=== PATIENT | female | born 1990 | race Caucasian/White ===

== ENCOUNTER 2023-07-14 20:53 | Outpatient (REF) | payer BC, SELFPAY | END 2023-07-14 20:54 | disposition home or self-care (01) | LOC: LAB 20:53 | PROVIDERS: Visit Provider Physician Assistant | DX: Z34.93 Encounter for supervision of normal pregnancy, unspecified, third trimester (principal) | CPT/HCPCS: 87081 ==

== ENCOUNTER 2023-08-05 05:10 | Inpatient (IN) | payer BC, SELFPAY ==
[2023-08-05] VITALS (54 sets, daily range): BP systolic 87–147; BP diastolic 52–97; PULSE 61–95; RESP 16; TEMP 35.7–36.1
--- OUTSIDE RECORDS SUMMARY | 2023-08-05 05:14 | XMS_ITS | CCD ---
Author Organization [facility] Care Team Providers Care Manager Outpatient Name Role Phone RISHIARNULFOLONNYAleciaCHIQUITA NGO Unavailable Un available RENETTA ALTMAN Referring Unavailable REQUEST, NONE LISTED Primary Care Unavailable KALLI, ABNER Admitting Unavailable HAY, ABNER Attending Unavailable KALLI, ABNER Consulting Unavailable REQUEST, NONE LISTED Primary Care Unavailable STRUS, MARYANN Admitting Unavailable STRUS, MARYANN Attending Unavailable VIVIANE ROSE V Consulting Unavailable STRUS, MARYANN Consulting Unavailable Cristla Mandel Unavailable OMKAR CONWAY Referring Unavailable ELDON FERNANDEZ Primary Care Unavailable Unavailable Primary Care Provider UnavailKARAN Church Attending Unavailable AYSE, MELINA Attending Unavailable DARIAN, KARAN Attending Unavailable AYSE, MELINA Attending Unavailable DARIAN, KARAN Attending Unavailable DARIAN, KARAN Attending Unavailable ELDON FERNANDEZ Referring Unavailable ELDON FERNANDEZ Primary Care Unavailable ELDON FERNANDEZ Referring Unavailable ELDON FERNANDEZ Primary Care Unavailable EMILY NOVAK Attending Unavailable KLARISSA RODRIGUEZ Referring Unavailable ELDON FERNANDEZ Primary Care Unavailable ELDON FERNANDEZ Referring Unavailable ELDON FERNANDEZ Primary Care Unavailable Allergies Allergy Classification Reported Allergen(s) Allergy Type Date of Onset Reaction(s) Facility (3 sources) Citalopram; Translations: [CITALOPRAM] Drug Allergy 08-17-2016 [facility] Repository (4 sources) Citalopram Drug Allergy 12-18-2017 [facility] Medications Current Medications Medication Drug Class(es) Dates Sig (Normalized) Sig (Original) acetaminophen 500 mg oral tablet (2 sources) take 1 tablet by mouth every six hours as needed acetaminophen (Tylenol) 500 MG tablet Take 500 mg by mouth every 6 (six) hours if needed 0 Active amoxicillin 875 mg / clavulanate 125 mg oral tablet (1 source) Penicillin-class Antibacterial Start: 11-08-2022 take 1 tablet by mouth every twelve hours Amoxicillin-Pot Clavulanate 875-125 MG 1 tablet Orally every 12 hrs for 10 day(s) Oct, Active cetirizine hydrochloride 10 mg oral tablet (3 sources) Histamine-1 Receptor Antagonist take 1 tablet by mouth in the morning cetirizine (ZyrTEC) 10 MG tablet Take 10 mg by mouth in the morning. 0 Active take 1 tablet by mouth once ruth y ZyrTEC Allergy 10 MG 1 tablet Orally Once a day Active cholecalciferol 0.05 mg oral tablet (2 sources) Vitamin D cholecalciferol (Vitamin D-3) 50 MCG (2000 UT) tablet Take by mouth Daily 0 Active docusate sodium 100 mg oral capsule (2 sources) Start: 023 take 1 capsule by mouth twice daily as needed Docusate Sodium (DSS) 100 MG capsule Take 100 mg by mouth 2 (two) times a day as needed 0 12/30/2022 Active lactobacillus acidophilus [id number] unt / pectin 100 mg oral tablet (2 sources) Lactobacillus Acid-Pectin (Acidophilus/[place] Pectin) tablet Take by mouth 3 (three) times a day with meals 0 Active omega-3 acid ethyl esters ([facility]) 1000 mg oral capsule (2 sources) take 1 capsule by mouth in the morning omega-3 acid ethyl esters (Lovaza) 1 g capsule Take 2 g by mouth in the morning and 2 g in the evening. 0 Active Prenat w/o N-AB-Wxwwtvt-FA-DHA (WesCap-PN DHA) 27-0.6-0.4-300 MG capsule (2 sources) take 1 capsule by mouth in the morning Prenat w/o Y-PF-Lrmuivf-FA-DHA (WesCap-PN DHA) 27-0.6-0.4-300 MG capsule Take 1 capsule by mouth in the morning. 0 Active valACYclovir 500 mg oral tablet (2 sources) Herpesvirus Nucleoside Analog DNA Polymerase Inhibitor, Herpes Simplex Virus Nucleoside Analog DNA Polymerase Inhibitor, Herpes Zoster Virus Nucleoside Analog DNA Polymerase Inhibitor Start: 023 take 1 tablet by mouth in the morning valACYclovir (Valtrex) 500 MG tablet Take 500 mg by mouth in the morning. 0 12/30/2022 Active Completed/Discontinued Medications Medication Drug Class(es) Dates Sig (Normalized) Sig (Original) acyclovir 400 mg oral tablet (1 source) Herpesvirus Nucleoside Analog DNA Polymerase Inhibitor, Herpes Simplex Virus Nucleoside Analog DNA Polymerase Inhibitor, Herpes Zoster Virus Nucleoside Analog DNA Polymerase Inhibitor Acyclovir 400 MG Oral for 30 Days Not-Taking buprenorphine 8 mg / naloxone 2 mg sublingual film (1 source) Partial Opioid Agonist, Opioid Antagonist Buprenorphine HCl-Naloxone HCl 8-2 MG DISSOLVE 1 FILM UNDER THE TONGUE ONCE DAILY Sublingual for 12 Days Not-Taking busPIRone hydrochloride 10 mg oral tablet (1 source) take 1 tablet by mouth once daily in the morning, then take 1 tablet by mouth once daily in the evening busPIRone HCl 10 MG take 1 tablet by mouth every morning and then take 1 tablet every evening Oral for 30 Days Not-Taking cloNIDine hydrochloride 0.2 mg oral tablet (1 source) Central alpha-2 Adrenergic Agonist take 1 tablet by mouth three times daily cloNIDine HCl 0.2 MG take 1 tablet by mouth three times a day Oral for 10 Days Not-Taking hydrOXYzine hydrochloride 50 mg oral tablet (1 source) Antihistamine take 1 tablet by mouth twice daily for anxiety hydrOXYzine HCl 50 MG take 1 tablet by mouth twice a day if needed for anxiety Oral for 30 Days Not-Taking naltrexone hydrochloride 50 mg oral tablet (1 source) Opioid Antagonist take 1 tablet by mouth once daily Naltrexone HCl 50 MG take 1 tablet by mouth once daily Oral for 30 Days Not-Taking prazosin 1 mg oral capsule (1 source) alpha-Adrenergic Marquis take 1 capsule by mouth at bedtime Prazosin HCl 1 MG take 1 capsule by mouth at bedtime Oral for 30 Days Not-Taking predniSONE 50 mg oral tablet (1 source) predniSONE 50 MG Oral for 5 Days Not-Taking Problems Active Problems Problem Classification Problem Date Documented Da te Episodic/Chronic Abdominal pain (4 sources) Unspecified abdominal pain; Translations: [UNSPECIFIED ABDOMINAL PAIN] Onset: 10-05-2018 Episodic Disorders of teeth and jaw (3 sources) Other specified disorders of teeth and supporting structures; Translations: [OTH SPEC DISORDERS TEETH SUPP STRCT] Onset: 03-24-2018 E Codes: Natural/environment (1 source) Bitten by cat, initial encounter Episodic Open wounds of extremities (1 source) Open bite of right hand, initial encounter Episodic Other complications of (1 source) Other specified related conditions, second trimester; Translations: [OTH SPEC PREG RELATED COND 2ND TRI] Onset: 10-07-2018 Episodic Other complications of (1 source) Supervision of other high risk pregnancies, third trimester; Translations: [Supervision of other high risk pregnancies, third trimester] Onset: 07-29-2023 Episodic Other complications of (1 source) Smoking (tobacco) complicating , third trimester; Translations: [Smoking (tobacco) complicating , third trimester] Onset: 07-29-2023 Episodic Other and delivery including normal (2 sources) Third trimester ; Translations: [Encounter for supervision of normal , unspecified, third trimester] 06-25-2023 Episodic Polyhydramnios and other problems of amniotic cavity (2 sources) Polyhydramnios, third trimester, not applicable or unspecified; Translations: [Polyhydramnios, third trimester, not applicable or unspecified] Onset: 04-30-2023 Episodic Residual codes; unclassified (1 source) Cystic fibrosis carrier; Translations: [Cystic fibrosis carrier] Onset: 07-29-2023 Episodic Residual codes; unclassified (1 source) 18 weeks gestation of ; Translations: [18 WEEKS GESTATION OF ] Onset: 10-07-2018 Substance-related disorders (1 source) Nicotine dependence, cigarettes, uncomplicated; Translations: [NICOTINE DEPEND CIGARETTES UNCOMP] Onset: 10-07-2018 Chronic Unclassified (1 source) Other psychoactive substance use, unspecified, in remission; Translations: [Other psychoactive substance use, unspecified, in remission] Onset: 03-06-2019 Past or Other Problems Problem Classification Problem Date Documented Da te Episodic/Chronic Disorders of teeth and jaw (4 sources) Periapical abscess without sinus; Translations: [Dental caries, unspecified] Onset: 03-28-2018 Episodic Immunizations and screening for infectious disease (1 source) Contact with and (suspected) exposure to other viral communicable diseases Onset: 05-07-2021 Resolved: 05-07-2021 Episodic Other upper respiratory infections (2 sources) Acute upper respiratory infection, unspecified; Translations: [Acute pharyngitis, unspecified] Onset: 05-07-2021 Resolved: 05-07-2021 Episodic Residual codes; unclassified (1 source) Tobacco use; Translations: [Tobacco use] Onset: 12-17-2022 Episodic Results Test Name Value Interpretation Reference Range Facility Urinalysis macro (dipstick) panel (U)on 06-30-2023 Bilirubin, UA Negative Negative - 4(70) +++ mg/dL [facility] Blood, UA Negative Negative - 50 Cosmo/mcL [facility] Clarity, UA Clear [facility] re Color, UA Yellow [facility] Glucose, UA Negative Negative - 1999(110) ++++ mg/dL [facility] Interpretation and review of laboratory results Normal [facility] Ketones, UA Negative Negative - 160(16) ++++ mg/dL [facility] Leukocytes, UA Negative Negative - 500+++ Erin/mcL [facility] Nitrite, UA Negative Negative - Positive [facility] pH, UA 5.5 5 - 9 [facility] e Protein, UA Negative Negative - 1999(20) ++++ mg/dL [facility] Spec Grav, UA 1.020 1 - 1.03 [facility] Urobilinogen, UA 1.0 0.2 - 12 mg/dL [facility] Glucose 1 Hr post dose gluco se [Mass/Vol]on 05-03-2023 1ST HR GTT 176 mg/dL High 120-170 [facility] Comment on above: Performed By: #### 2 0438-8 #### [facility] ([id number]) [address] [place] [address], [address] [place] [address] Glucose 2 Hr post 100 g gluc ose PO [Mass/Vol]on 05-03-2023 2ND HR GTT 100GM LOAD 137 mg/dL Normal 70-139 [facility] Comment on above: Result Comment: Fourth International Workshop Conference: Recommendations and Rationale for Screening and Diagnosis of Gestational Diabetes Mellitus 2 or more of the following must be met or exceeded for a positive diagnosis. FASTING >=95mg/dL 1hr post 100g load >=180mg/dL 2hr post 100g load >=155mg/dL 3hr post 100g load >=140mg/dL Performed By: #### 1 514-9 #### [facility] ([id number]) [address], [address] [place] [address] Glucose 3 Hr post dose gluco se [Mass/Vol]on 05-03-2023 3RD HR GTT 102 mg/dL High 65-99 [facility] Comment on above: Performed By: #### 2 0437-0 #### [facility] ([id number]) [address], [address] [place] [address] Glucose post fast [Mass/Vol] on 05-03-2023 FASTING GTT 83 mg/dL Normal 65-99 [facility] Comment on above: Performed By: #### 1 558-6 #### [facility] ([id number]) [address], [address] [place] [address] [employer] 05-07-2021 S. pyogenes Org specific cx Ql (Throat) Negative [employer] Other [employer] 10-26-2018 Send Out Report FORWARD TO [employer] Normal [facility] Comment on above: Performed By: #### C MIS #### [facility] [place] [address] [place] [address] [id number] Director Enterprise Data Architecture: Rod Mott MD [facility]-2018 Test Name COUNSYL KIT Normal [facility] Comment on above: Performed By: #### C MIS #### [facility] [place], [place] [id number] Director Enterprise Data Architecture: Rod Mott MD ABO AND RH TYPEon 10-05-2018 ABO and Rh group Nom (Bld) ABO Rh Typing A Rh Positive Normal [facility] Comment on above: Performed By: #### A JORGE #### [facility] [address], [place] [address] Jaswant Reza CBC AUTO DIFFon 10-05-2018 Basophils (Bld) [#/Vol] 0.0 103/ul Normal 0.0-0.1 [facility] Comment on above: Performed By: #### C BC #### [facility] [address], [place] [address] Jaswant Libia Basophils/100 WBC (Bld) 0.3 % Normal 0.2-2.0 [facility] Comment on above: Performed By: #### C BC #### [facility] [address], [place] [address] Jaswant Libia Eosinophils (Bld) [#/Vol] 0.2 103/ul Normal 0.0-0.7 [facility] Comment on above: Performed By: #### C BC #### [facility] [address], [place] [address] Jaswant Ilbia Eosinophils/100 WBC (Bld) 1.8 % Normal 0.9-7.0 [facility] Comment on above: Performed By: #### C BC #### [facility] [address] [place], [place] [address] Jaswant Libia Erythrocyte distribution width (RBC) [Ratio] 12.2 % Normal 11.0-15.0 [facility] Comment on above: Performed By: #### C BC #### [facility] [address] [place], [place] [address] Jaswant Libia Hematocrit (Bld) [Volume fraction] 35.7 % Critically low 36.0-48.0 [facility] Comment on above: Performed By: #### C BC #### [facility] [address] [place], [place] [address] Jaswant Libia Hemoglobin (Bld) [Mass/Vol] 12.2 g/dL Normal 12.0-16.0 [facility] Comment on above: Performed By: #### C BC #### [facility] [address] [place], [place] [address] Jaswant Libia IG # 0.05 10e3/ul Critically high 0.00-0.03 [facility] Comment on above: Performed By: #### C BC #### [facility] [address] [place], [place] [address] Jaswant Libia IG % 0.5 % Normal 0.0-0.5 [facility] Comment on above: Performed By: #### C BC #### [facility] [address], [place] [address] Jaswant Libia Lymphocytes (Bld) [#/Vol] 2.9 103/ul Normal 1.2-3.8 [facility] Comment on above: Performed By: #### C BC #### [facility] [address], [place] [address] Jaswant Libia Lymphocytes/100 WBC (Bld) 27.6 % Normal 20.5-60.0 [facility] Comment on above: Performed By: #### C BC #### [facility] [address], [place] [address] Jaswant Libia MANUAL DIFF REQ NO Normal [facility] Comment on above: Performed By: #### C BC #### [facility] [address] [place] [address] Jaswant Libia MCH (RBC) [Entitic mass] 30.0 pg Normal 26.7-34.0 [facility] Comment on above: Performed By: #### C BC #### [facility] [address] [place] [address] Jaswant Libia MCHC (RBC) [Mass/Vol] 34.2 g/dL Normal 29.9-35.2 [facility] Comment on above: Performed By: #### C BC #### [facility] [address] [place] [address] Jaswant Libia MCV (RBC) [Entitic vol] 87.7 fL Normal 81.0-99.0 [facility] Comment on above: Performed By: #### C BC #### [facility] [address], [place] [address] Jaswant Libia Monocytes (Bld) [#/Vol] 0.9 103/ul Critically high 0.3-0.8 [facility] Comment on above: Performed By: #### C BC #### [facility] [address], [place] [address] Jaswant Libia Monocytes/100 WBC (Bld) 8.2 % Normal 1.7-12.0 [facility] Comment on above: Performed By: #### C BC #### [facility] [address] [place], [place] [address] Jaswant Libia Neutrophils (Bld) [#/Vol] 6.5 103/ul Normal 1.4-6.5 [facility] Comment on above: Performed By: #### C BC #### [facility] [address] [place], [place] [address] Jaswant Libia Neutrophils/100 WBC (Bld) 61.6 % Normal 43.0-75.0 [facility] Comment on above: Performed By: #### C BC #### [facility] [address] [place] [address] Jaswant Libia Platelet mean volume (Bld) [Entitic vol] 10.2 fL Normal 9.5-13.5 [facility] Comment on above: Performed By: #### C BC #### [facility] [address] [place] [address] Jaswant Libia Platelets (Bld) [#/Vol] 315 103/ul Normal 150-450 [facility] Comment on above: Performed By: #### C BC #### [facility] [address] [place] [address] Jaswant Libia RBC (Bld) [#/Vol] 4.07 106/ul Critically low 4.20-5.40 [facility] Comment on above: Performed By: #### C BC #### [facility] [address] [place] [address] Jaswant Libia WBC (Bld) [#/Vol] 10.5 103/ul Normal 4.0-11.0 [facility] Comment on above: Performed By: #### C BC #### [facility] [address] [place] [address] Jaswant Libia ER URINE PROFILEon 9 Bilirubin [Mass/Vol] Negative Normal NEGATIVE [facility] Comment on above: Performed By: #### E RUR #### [facility] [address] [place] [address] Jaswant Libia BLOOD Negative Normal NEGATIVE [facility] Comment on above: Performed By: #### E RUR #### [facility] [address] [place] [address] Jaswant Libia Clarity (U) CLEAR Normal [facility] Comment on above: Performed By: #### E RUR #### [facility] [address] [place] [address] Jaswant Libia Color (U) LT. YELLOW Normal YELLOW [facility] Comment on above: Performed By: #### E RUR #### [facility] [address] [place] [address] Jaswant Libia ERUAHD A micrscopic examination will be performed if indicated. Normal [facility] Comment on above: Performed By: #### E RUR #### [facility] [address] [place] [address] Jaswant Libia Glucose [Mass/Vol] Negative Normal NEGATIVE [facility] Comment on above: Performed By: #### E RUR #### [facility] [address] [place] [address] Jaswant Libia Ketones Ql (U) Negative Normal NEGATIVE [facility] Comment on above: Performed By: #### E RUR #### [facility] [address] [place] [address] Jaswant Libia Nitrite Ql (U) Negative Normal NEGATIVE [facility] Comment on above: Performed By: #### E RUR #### [facility] [address] [place] [address] Jaswant Libia pH (Bld) 5.5 Normal 5-9 [facility] Comment on above: Performed By: #### E RUR #### [facility] [address] [place] [address] Jaswant Libia Protein (U) [Mass/Vol] Negative Normal [facility] Comment on above: Performed By: #### E RUR #### [facility] [address] [place] [address] Jaswant Libia SPEC GRAVITY 1.010 Normal 1.005-<=1.025 [facility] Comment on above: Performed By: #### E RUR #### [facility] [address] [place] [address] Jaswant Reza UR MICRO IND NOT INDICATED Normal [facility] Comment on above: Performed By: #### E RUR #### [facility] [address] [place], [place] [address] Jaswant Reza Urobilinogen Qn (U) 0.2 EU/dl Normal [facility] Comment on above: Performed By: #### E RUR #### [facility] [address] [place], [place] [address] Jaswant Reza WBC (Bld) [#/Vol] Negative Normal NEGATIVE [facility] Comment on above: Performed By: #### E RUR #### [facility] [address] [place], [place] [address] Jaswant Reza PREG QUANT HCGon 10-05-2018 HCG QUANT 66993.00 mIU/mL Normal [facility] Comment on above: Result Comment: VERI FIED BY DILUTION Performed By: #### P REGQNT #### [facility] [address] [place] [address] Jaswant Reza HCG RANGE SEE BELOW Normal [facility] Comment on above: Result Comment: 5-50 0-1 WEEK 40-300 1-2 WEEKS 100-1,000 2-3 WEEKS 500-6,000 3-4 WEEKS 5,000-200,000 1-2 MONTHS 10,000-100,000 2-3 MONTHS 3,000-50,000 2ND TRIMESTER 1,000-50,000 3RD TRIMESTER Performed By: #### P REGQNT #### [facility] [address] [place] [address] Jaswant Reza PROF CHEM 8 (BAS METB)on Anion gap [Moles/Vol] 13.8 mmol/L Normal [facility] Comment on above: Performed By: #### B MP #### [facility] [address] [place], [place] [address] Jaswant Reza Calcium [Mass/Vol] 9.5 mg/dL Normal 8.4-10.2 [facility] Comment on above: Performed By: #### B MP #### [facility] [address] [place] [phone] Jaswant Libia Chloride [Moles/Vol] 102 mmol/L Normal 98-107 [facility] Comment on above: Performed By: #### B MP #### [facility] [address] [place] [phone] Jaswant Libia CO2 [Moles/Vol] 23.9 mmol/L Normal 22.0-30.[address] [facility] Comment on above: Performed By: #### B MP #### [facility] [address] [place] [phone] Jaswant Libia Creatinine [Mass/Vol] 0.45 mg/dL Critically low 0.52-1.04 [facility] Comment on above: Performed By: #### B MP #### [facility] [address] [place] [phone] Jaswant Libia EGFR-AF [place]ER >60 Normal >=[address] [facility] Comment on above: Performed By: #### B MP #### [facility] [address] [place] [address] Jaswant Libia EGFR-NON AF [place] >60 Normal >=60 [facility] Comment on above: Performed By: #### B MP #### [facility] [address] [place] [phone] Jaswant Libia Glucose [Mass/Vol] 78 mg/dL Normal 74-106 [facility] Comment on above: Performed By: #### B MP #### [facility] [address] [place] [phone] Jaswant Libia Potassium [Moles/Vol] 3.7 mmol/L Normal 3.4-5.0 [facility] Comment on above: Performed By: #### B MP #### [facility] [address] [place] [phone] Jaswant Libia Sodium [Moles/Vol] 136 mmol/L Critically low 137-145 [facility] Comment on above: Performed By: #### B MP #### [facility] [address] [place] [phone] Jaswant Libia Urea nitrogen [Mass/Vol] 5.0 mg/dL Critically low 7.0-17.0 [facility] Comment on above: Performed By: #### B MP #### [facility] [address] [place], [place] [address] Jaswant Reza Urea nitrogen/Creatinine [Mass ratio] 11.1 mg/mg Normal [facility] Comment on above: Performed By: #### B MP #### [facility] [address] [place], [place] [address] Jaswant Reza US PREG PLACENTAon 9 US PREG PLACENTA Patient: ANITA OCHOA Exam Date: 10/05/2018 : 1990 Gender:F Ordering : DR. MARYANN DALY M.D. Admission #: [id number] Family : Order #: [id number] CLICK HERE TO VIEW EXAM RADIOLOGY REPORT PROCEDURE: ULTRASOUND PLACENTA COMPARISON: None. INDICATIONS: Acute right and left lower quadrant pain with ; 18w5d TECHNIQUE: Transabdominal sonographic examination for placenta. Transvaginal sonographic examination for placenta. FINDINGS: PLACENTA: Posterofundal. No intraplacental or retroplacental echogenic abnormality. The placental edge is 7.5 cm from the internal cervical os. CERVIX LENGTH: 4.3 cm in length. Closed. HEART RATE: 136 bpm CONCLUSION: 1. No evidence of placental abruption Dictated by: Viviane Rose M.D. on 10/05/2018 at 21:24 Approved by: Viviane Rose M.D. on 10/05/2018 at 21:25 Normal [facility] Vital Signs Date Time Vital Sign Value Performing Clinician Facility 06-30-2023 10:050 Body mass index (BMI) [Ratio] 39.27 kg/m2 HBCSo DO Work Phone: [facility] 06-30-2023 10:050 Body weight 103.78 kg Patsnap DO Work Phone: [facility] 06-30-2023 10:23-050 Diastolic blood pressure 76 mm[Hg] Patsnap DO Work Phone: [facility] 06-30-2023 10:23-0500 Systolic blood pressure 116 mm[Hg] Karan Farmer DO Work Phone: [facility] 11-08-2022 12:15-0400 Body height 167.64 cm Cristal Tequila Other [facility] [facility] Other 11-08-2022 12:15-0400 Body mass index (BMI) [Ratio] 30.02 kg/m2 Cristal Tequila Other [facility] Other 11-08-2022 12:15-0400 Body temperature 98.3 [degF] Cristal Tequila Other [facility] Other 11-08-2022 12:15-0400 Body weight 84.37 kg Cristal Tequila Other [facility] Other 11-08-2022 12:15-0400 Respiratory rate 18 /min Cristal Tequila Other [facility] Other 11-08-2022 12:15-0400 SaO2% (BldA) [Mass fraction] 99 % Cristal Tequila Other [facility] Other 05-07-2021 13:30-0500 Body height 167.64 cm Cristal Tequila Other [facility] Other 05-07-2021 13:30-0500 Body mass index (BMI) [Ratio] 29.05 kg/m2 Cristal Tequila Other [facility] Other 05-07-2021 13:30-0500 Body temperature 97.9 [degF] Cristal Tequila Other [facility] Other 05-07-2021 13:30-0500 Body weight 81.65 kg Cristal Tequila Other [facility] Other 05-07-2021 13:30-0500 Respiratory rate 18 /min Cristal Mandel Other [facility] [facility] Other 05-07-2021 13:30-0500 SaO2% (BldA) [Mass fraction] 99 % Cristal Mandel Other [facility] Other Encounters Encounter Date Encounter Type Care Provider Facility Start: 07-29-2023 End: 07-29-2023 ambulatory [facility] Start: 07-28-2023 End: 07-28-2023 ambulatory KARAN DARIAN Not Available Start: 07-21-2023 End: 07-21-2023 ambulatory KARAN DARIAN Not Available Start: 07-14-2023 End: 07-14-2023 ambulatory MELINA AYSE Not Available Start: 06-30-2023 End: 06-30-2023 ambulatory KARAN DARIAN Not Available Start: 06-30-2023 End: 06-30-2023 flow sheet Karan Darian DO Work Phone: [facility] Comment on above: Third trimester preg prince Start: 06-24-2023 End: 06-24-2023 ambulatory [facility] Start: 06-14-2023 End: 06-14-2023 ambulatory MELINA TAVERA Not Available Start: 05-31-2023 End: 05-31-2023 ambulatory KARAN DARIAN Not Available Start: 05-27-2023 End: 05-27-2023 ambulatory EMILY SCARLET [facility] Start: 05-03-2023 End: 05-04-2023 ambulatory OMKAR CONWAY [facility] Start: 11-08-2022 End: 11-08-2022 ambulatory Cristal Mandel Other [facility] Other Start: 11-08-2022 Office outpatient vi sit 15 minutes Cristal Mandel [facility] Start: 05-07-2021 (URG) Urgent Care Visit Cristal Patrica bermudez [facility] Start: 05-07-2021 End: 05-07-2021 ambulatory Cristal Grovermond Other [facility] Other Start: 10-25-2018 End: 10-26-2018 Patient encounter procedure RENETTA ALTMAN [facility] Start: 10-05-2018 End: 10-06-2018 Patient encounter procedure NONE LISTED REQUEST Facility: Start: 04-20-2018 End: 04-20-2018 Emergency department patient visit CHIQUITA Johnson [facility] Start: 03-24-2018 End: 03-24-2018 Patient encounter procedure NONE LISTED REQUEST Facility: Procedures Date Procedure Procedure Detail Performing Clinician Start: 06-30-2023 Urnls dip stick/tabl et rgnt non-auto w/o micrscp Karan Darian DO Work Phone: Start: 10-25-2018 Unlisted chemistry procedure RENETTA ALTMAN Plan of Treatment Date Care Activity Detail Author Start: 07-14-2023 End: 07-14-2023 Patient encounter procedure 07/14/2023 8:50 AM EST Routine [facility] [address] [place] [id number] Melina Tavera PA [address] [place] [address] [facility] Immunizations Immunization Date Immunization Notes Care Provider Fa cility 11-08-2022 tetanus toxoid, reduced diphtheria toxoid, and acellular pertussis vaccine, adsorbed Cristal Mandel Other [facility] [facility] Other Payers Date Payer Category Payer Medicaid [id number] 2022 Medicaid [place] [id number] 2022-Present [address] [place] [address] [id number] 2021 Unknown [id number] 2021 Unknown BCBS BCBS xxxxxx [id number] 2021-Present [phone] [address] [place] [address] [id number] 1992 Unknown [id number] [id number] 1992 Unknown [id number] 2.16.840.1.236192.3.579.2.593 1992 Unknown [id number] 2.16.840.1.752984.3.579.2.593 1992 Unknown [id number] 2.16.840.1.035193.3.579.2.1286 1992 Unknown [id number] 2.16.840.1.060142.3.579.2.1259 1992 Unknown [id number] 2.16.840.1.509921.3.579.2.1259 1992 Unknown [id number] 2.16.840.1.611966.3.579.2.1259 1992 Unknown [id number] 2.16.840.1.944511.3.579.2.1259 1992 Unknown [id number] 2.16.840.1.415083.3.579.2.1259 1992 Unknown [id number] 2.16.840.1.693217.3.579.2.1259 1992 Unknown [id number] 2.16.840.1.132251.3.579.2.1286 1992 Unknown [id number] 2.16.840.1.041401.3.579.2.1286 1992 Unknown [id number] 2.16.840.1.998460.3.579.2.1286 1992 Unknown [id number] 2.16.840.1.995967.3.579.2.1286 1959 Self-pay [id number] 1959 Unknown [id number] Unknown [id number] Social History Date Type Detail Facility Unknown if ever smoked [facility] Other Sex Assigned [facility] Other Tobacco smoking status NHIS Tobacco smoking consumption unknown [facility] Start: 11-19-2022 [facility] Start: 1992 Sex Assigned At Not on file [facility] History of Present illness Narrative 06-30-2023 Libia Isaac LPN - 06/30/2023 10:10 AM EST Note Date & Type Note Facility 06-30-2023 History of Presen t illness Narrative Reason for Appointment: Patient ID: Anita Ochoa is a 32 y.o. female who presents for Routine Visit Patient presents today for Return OB appointment. Current Medications: has a current medication list which includes the following prescription(s): acetaminophen, cetirizine, cholecalciferol, dss, acidophilus/citrus pectin, omega-3 acid ethyl esters, wescap-pn dha, and valacyclovir. Medical History: Active Ambulatory Problems Diagnosis Date Noted No Active Ambulatory Problems Resolved Ambulatory Problems Diagnosis Date Noted No Resolved Ambulatory Problems Past Medical History: Diagnosis Date Broken nose 2008 Family History Problem Relation Name Age of Onset Asthma Brother Ovarian cancer Maternal Grandmother Breast cancer Paternal Grandmother Social History Tobacco Use Smoking status: Not on file Smokeless tobacco: Not on file Substance Use Topics Alcohol use: Not on file Drug use: Not on file Past Surgical History: Procedure Laterality Date NASAL SINUS SURGERY TONSILLECTOMY 2013 Allergies Allergen Reactions Citalopram Hives and Rash Whole body hives Review of Systems: Review of Systems Constitutional: Negative. HENT: Negative. Eyes: Negative. Respiratory: Negative. Cardiovascular: Negative. Gastrointestinal: Negative. Genitourinary: Negative. Musculoskeletal: Negative. Skin: Negative. Neurological: Negative. All other systems reviewed and are negative. Hematological: Negative. Endocrine: Negative. Allergic/Immunologic: Negative. Objective Physical Exam Constitutional: Appearance: Normal appearance. She is well-developed. Cardiovascular: Rate and Rhythm: Normal rate and regular rhythm. Pulmonary: Effort: Pulmonary effort is normal. Breath sounds: Normal breath sounds. Abdominal: General: Bowel sounds are normal. There is no distension. Palpations: Abdomen is soft. Tenderness: There is no abdominal tenderness. There is no guarding or rebound. Musculoskeletal: General: No swelling. Normal range of motion. Right lower leg: No edema. Left lower leg: No edema. Neurological: Mental Status: She is alert and oriented to person, place, and time. Skin: General: Skin is warm and dry. Psychiatric: Mood and Affect: Mood normal. Behavior: Behavior normal. Vitals and nursing note reviewed. Exam conducted with a batching operator present. Vitals: Estimated body mass index is 39.27 kg/m as calculated from the following: Height as of 05/31/23: 5' 4 . Weight as of this encounter: 228 lb 12.8 oz. BP: 116/76 No LMP recorded. Patient is . Assessment/Plan Encounter Diagnosis Name Primary? Third trimester Patient presents today for a routine obstetrics appointment. Patient is currently 33w6d . Patient states she is doing well but has complaints of being tired due to current . Patient has verbalizes frequent movement. labor precautions was discussed/given and patient was instructed to perform kick counts three times a day. Follow Up: Patient is to return to office in 2 week for routine OB appointment. Documented by Libia Isaac LPN on behalf of: Karan Farmer DO documented in this encounter [facility] Evaluation note 11-08-2022 Note Date & Type Note Facility 11-08-2022 Evaluation note Encounter Date Diagnosis Assessment Notes Oct, Bitten by cat, initial encounter (ICD-10 - W55.01XA) Cat bite home care material was printed Drink plenty fluids, get plenty of rest. Take the antibiotic as prescribed until gone. Keep the wounds clean and dry. Follow-up with your family physician if no improvement in 2 to 3 days. Go to the ER for worsening symptoms or concerns Oct, Open bite of right hand, initial encounter (ICD-10 - S61.451A) [facility] Other Evaluation note Note Date & Type Note Facility Evaluation note [employer] Other Evaluation note Note Date & Type Note Facility Evaluation note Diagnosis Third trimester state, incidental documented in this encounter [facility] History general Narrative - Reported Note Date & Type Note Facility History general Narrative - Reported [facility] Other History general Narrative - Reported Note Date & Type Note Facility History general Narrative - Reported Type Surgical History tonsillectomy [facility] Other Summary Purpose Family History No Family History Records FoundNo Family History Records FoundNo Family History Records FoundNo Family History Records FoundNo Family History Records FoundNo Family History Records Found Advance Directives No Advanced Directives Records FoundNo Advanced Directives Records FoundNo Advanced Directives Records FoundNo Advanced Directives Records FoundNo Advanced Directives Records FoundNo Advanced Directives Records Found Additional Source Comments INFORMATION SOURCE (unrecogn ized section and content) DATE CREATED AUTHOR 04/26/2018 [facility] DATE CREATED AUTHOR AUTHOR'S ORGANIZ ATION 10/26/2018 [facility] DATE CREATED AUTHOR AUTHOR'S ORGANIZ ATION 12/25/[address] [facility] DATE CREATED AUTHOR AUTHOR'S ORGANIZ ATION 05/07/2023 [facility] DATE CREATED AUTHOR AUTHOR'S ORGANIZ ATION 07/29/2023 [facility] DATE CREATED AUTHOR AUTHOR'S ORGANIZ ATION 07/30/2023 [facility] REASON FOR VISIT (unrecogniz ed section and content) Reason Comments Routine Visit FOR RECORDS PERTAINING TO PATIENTS WHO ARE OR HAVE BEEN ENROLLED IN A CHEMICAL DEPENDENCY/SUBSTANCEABUSE PROGRAM, SOME INFORMATION MAY BE OMITTED. This clinical summary was aggregated from multiple sources. Caution should be exercised in using it in the provision of clinical care. This summary normalizes information from multiple sources, and as a consequence, information in this document may materially change the coding, format and clinical context of patient data. In addition, data may be omitted in some cases. CLINICAL DECISIONS SHOULD BE BASED ON THE PRIMARY CLINICAL RECORDS. [facility] [employer] [facility]. provides no warranty or guarantee of the accuracy or completeness of information in this document.
[2023-08-05] MEDS: 0.9 % SODIUM CHLORIDE 1,000 ML 125 ML IV (05:52)
[2023-08-05 06:13] LABS: Hematocrit 34.7 % (36.0-48.0); Hemoglobin 11.4 g/dL (12.0-16.0); Mean Corpuscular HGB Conc 32.9 g/dL (29.9-35.2); Mean Corpuscular Hemoglobin 28.4 pg (26.7-34.0); Mean Corpuscular Volume 86.3 fL (81.0-99.0); Mean Platelet Volume 10.1 fL (9.5-13.5); Platelet Count 339 10^3/uL (150-450); Red Blood Count 4.02 10^6/uL (4.20-5.40); Red Cell Distribution Width 14.3 % (11.0-15.0); White Blood Count 13.5 10^3/uL (4.0-11.0)
[2023-08-05] MEDS: OXYTOCIN/0.9 % SODIUM CHLORIDE 10 UNITS/500 ML PLAST..BAG 6 UNIT IV (06:18)
[2023-08-05 06:26] LABS: Amphetamine Screen Urine NEGATIVE (NEGATIVE); Barbiturates Screen Urine NEGATIVE (NEGATIVE); Benzodiazepines Screen Urine NEGATIVE (NEGATIVE); Buprenorphine Screen Urine NEGATIVE (NEGATIVE); Cannabinoid Screen Urine NEGATIVE (NEGATIVE); Cocaine Screen Urine NEGATIVE (NEGATIVE); Methadone Screen Urine NEGATIVE (NEGATIVE); Methamphetamines Screen Urine NEGATIVE (NEGATIVE); Opiate Screen Urine NEGATIVE (NEGATIVE); Oxycodone Screen Urine NEGATIVE (NEGATIVE); Phencyclidine Screen Urine NEGATIVE (NEGATIVE); Tricyclic Antidepressant Urine NEGATIVE (NEGATIVE)
[2023-08-05] MEDS: 0.9 % SODIUM CHLORIDE 1,000 ML 1000 ML IV (10:47)
[2023-08-05] MEDS: FENTANYL CITRATE/PF 100 MCG/2 ML VIAL EPIDURAL ×2 (11:23→11:25)
[2023-08-05] MEDS: ROPIVACAINE HCL/PF 400 MG/200 ML PREMIX 6 MG EPIDURAL (11:23)
[2023-08-05] MEDS: LIDOCAINE HCL 2% PF 100 MG/5 ML VIAL INJ (11:23)
[2023-08-05] MEDS: OXYTOCIN/0.9 % SODIUM CHLORIDE 20 UNITS/1,000 ML PLAST..BAG 125 UNIT IV (14:28)
--- NOTE | 2023-08-05 14:41 | PM.OBPRCVD ---
Procedure Intrapartal events: None Induction method: per pitocin protocol Delivery augmentation: rupture of membranes and pitocin Delivery monitor: external FHT and external uterine Route of delivery: Episiotomy Description: none L&D Laceration Description: periurethral - 2nd degree Delivery repair: Vicryl Estimated blood loss (mL): 300 Anesthesia type: Epidural Disposition: floor Infant Delivery date: 08/05/23 Gender: female presentation: vertex Placental delivery description: Spontaneous cord description: 3 Vessels
[2023-08-05] MEDS: GLYCERIN/WITCH HAZEL PADS 1 PAD TOPICAL (16:12)
[2023-08-05] MEDS: BENZOCAINE/MENTHOL 85 GRAM SPRAY BOTTLE 1 APPLIC TOPICAL (16:13)
--- NOTE | 2023-08-05 18:13 | PC.NURSE ---
Addendum entered by Nany Barrett 08/05/23 18:17: Epidural removed at this time. Tip intact. Original Note: While pt is up to toilet, one small egg sized clot obtained in toilet. Pt educated to call RN to observe next pad changed. RN educates pt to call RN if any saturation of pads in 1hour or any more egg sized clots. After returning to bed, pt fundus U/A midline firm. Pt bleeding scant.
--- NOTE | 2023-08-05 19:31 | PC.NURSE ---
No clots at this time.
[2023-08-05] MEDS: IBUPROFEN 600 MG TABLET PO (22:46)
[2023-08-06 06:11] LABS: Basophils Absolute Auto 0.1 10^3/uL (0.0-0.1); Basophils Percent Auto 0.4 % (0.2-2.0); Eosinophils Absolute Auto 0.3 10^3/uL (0.0-0.7); Eosinophils Percent Auto 1.7 % (0.9-7.0); Hematocrit 33.1 % (36.0-48.0); Hemoglobin 10.8 g/dL (12.0-16.0); Immature Granulocytes Abs Auto 0.12 10^3/uL (0.00-0.03); Immature Granulocytes Pct Auto 0.7 % (0.0-0.5); Lymphocytes Absolute Auto 4.1 10^3/uL (1.2-3.8); Lymphocytes Percent Auto 25.4 % (20.5-60.0); Mean Corpuscular HGB Conc 32.6 g/dL (29.9-35.2); Mean Corpuscular Hemoglobin 28.4 pg (26.7-34.0); Mean Corpuscular Volume 87.1 fL (81.0-99.0); Mean Platelet Volume 9.9 fL (9.5-13.5); Monocytes Absolute Auto 1.1 10^3/uL (0.3-0.8); Monocytes Percent Auto 6.9 % (1.7-12.0); Neutrophils Absolute Auto 10.5 10^3/uL (1.4-6.5); Neutrophils Percent Auto 64.9 % (43.0-75.0); Platelet Count 328 10^3/uL (150-450); Red Cell Distribution Width 14.4 % (11.0-15.0); White Blood Count 16.2 10^3/uL (4.0-11.0)
[2023-08-06 06:49] VITALS: RESP 16
--- NOTE | 2023-08-06 07:07 | PM.OBPN ---
OB - PN: Subj Subjective Patient comments: no complaints and pain well controlled [place] status: doing well Exam Constitutional Vital Signs, click to edit/add: Last Vital Signs Temp 96.8 F L 08/05/23 22:22 Pulse 72 08/05/23 22:22 Resp 16 08/06/23 06:49 BP 112/58 08/05/23 22:22 O2 Del Method Room Air 08/05/23 22:22 Documenting provider has reviewed patient's vital signs: yes Common normals: no apparent distress Respiratory Common normals: normal respiratory effort and clear to auscultation bilaterally Cardio Common normals: regular rate and regular rhythm GI Common normals: Normal to inspection, nondistended, normoactive bowel sounds present Extremity Common normals: no calf tenderness Results Labs Labs: Short CBC 08/06/23 Range/Units 06:01 WBC 16.2 H (4.0-11.0) 10^3/uL Hgb 10.8 L (12.0-16.0) g/dL Hct 33.1 L (36.0-48.0) % Plt Count 328 (150-450) 10^3/uL OB - PN: A/P Plan - Vaginal Delivery day: 1 Plan: routine care, discharge home and follow up 6 weeks Time Spent with Patient Time: Total time spent is greater than 50% in coordination of care (as documented) at patient's floor/unit and/or counseling patient: Total time spent with greater than 50% in coordination of care (as documented) at patient's floor/unit and/or counseling patient: less than 15 minutes
[2023-08-06 08:35] VITALS: BP 112/63; PULSE 63; TEMP 36.6
[2023-08-06] MEDS: IBUPROFEN 600 MG TABLET PO ×2 (08:45→16:12)
[2023-08-06] MEDS: DOCUSATE SODIUM 100 MG CAPSULE PO (08:45)
== END 2023-08-06 18:45 | disposition home or self-care (01) | DRG 807 ==
PROVIDERS: Admitting Provider Obstetrics & Gynecology; Visit Provider Obstetrics & Gynecology
DX: O71.82 Other specified trauma to perineum and vulva (principal); Z37.0 Single live birth; Z3A.39 39 weeks gestation of pregnancy; Z14.1 Cystic fibrosis carrier
CPT/HCPCS: 36415; 59050; 59410; 80307; 85025; 85027; 86850; 86900; 86901; 96374; 96376

== ENCOUNTER 2024-01-13 19:06 | Outpatient (REF) | payer BC, SELFPAY ==
--- OUTSIDE RECORDS SUMMARY | 2024-01-13 19:10 | XMS_ITS | CCD ---
Author Organization [place] [employer] [facility] Care Team Providers Care Form Building Supervisor Name Role Phone CHIQUITA ARTIS Unavailable Un available RENETTA ALTMAN Referring Unavailable REQUEST, NONE LISTED Primary Care Unavailable KALLI, ABNER Admitting Unavailable HAY, ABNER Attending Unavailable KALLI, ABNER Consulting Unavailable REQUEST, NONE LISTED Primary Care Unavailable STRUS, MARYANN Admitting Unavailable STRUS, MARYANN Attending Unavailable VIVIANE ROSE V Consulting Unavailable STRUS, MARYANN Consulting Unavailable Cristal Mandel Unavailable OMKAR CONWAY Referring Unavailable JIM, ELDON Germain Primary Care Unavailable Unavailable Primary Care Provider UnavailELDON Lal Referring Unavailable JIM, ELDON Germain Primary Care Unavailable JIM, ELDON Germain Referring Unavailable JIM, ELDON Germain Primary Care Unavailable EMILY NOVAK Attending Unavailable KLARISSA RODRIGUEZ Referring Unavailable JIM, ELDON Germain Primary Care Unavailable JIM, ELDON Germain Referring Unavailable JIM, ELDON Germain Primary Care Unavailable DARIAN, KARAN Attending Unavailable AYSE, MELINA Attending Unavailable DARIAN, KARAN Attending Unavailable AYSE, MELINA Attending Unavailable DARIAN, KARAN Attending Unavailable DARIAN, KARAN Attending Unavailable AYSE, MELINA Attending Unavailable DARIAN, KARAN Attending Unavailable Allergies Allergy Classification Reported Allergen(s) Allergy Type Date of Onset Reaction(s) Facility (3 sources) Citalopram; Translations: [CITALOPRAM] Drug Allergy 08-17-2016 [facility] Repository (4 sources) Citalopram Drug Allergy 12-18-2017 hives, Rash [facility] Medications Current Medications Medication Drug [...] 100 mg oral capsule (2 sources) Start: take 1 capsule by mouth twice daily as needed Docusate Sodium (DSS) 100 MG capsule Take 100 mg by mouth 2 (two) times a day as needed 0 12/30/2022 Active lactobacillus acidophilus [id number] unt / pectin 100 mg oral tablet (2 sources) Lactobacillus Acid-Pectin (Acidophilus/Loup Pectin) tablet Take by mouth 3 (three) times a day with meals 0 Active omega-3 acid ethyl esters (custodial) 1000 mg oral capsule (2 sources) take 1 capsule by mouth in the morning omega-3 acid ethyl esters (Lovaza) 1 g capsule Take 2 g by mouth in the morning and 2 g in the evening. 0 Active Prenat w/o M-IF-Uiewyly-FA-DHA (WesCap-PN DHA) 27-0.6-0.4-300 MG capsule (2 sources) take 1 capsule by mouth in the morning Prenat w/o C-WR-Xvbwnyj-FA-DHA (WesCap-PN DHA) 27-0.6-0.4-300 MG capsule Take 1 [...] UA Negative Negative - 4(70) +++ mg/dL [facility] Blood, UA Negative Negative - 50 Cosmo/mcL [facility] Clarity, UA Clear [facility] re Color, UA Yellow [facility] Health[facility] e Glucose, UA Negative Negative - 1999(110) ++++ mg/dL [facility] Interpretation and review of laboratory results Normal [facility] Ketones, UA Negative Negative - 160(16) ++++ mg/dL [facility] Leukocytes, UA Negative Negative - 500+++ Erin/mcL [facility] Nitrite, UA Negative Negative - Positive [facility] pH, UA 5.5 5 - 9 [facility] e Protein, UA Negative Negative - 1999(20) ++++ mg/dL [facility] Spec Grav, UA 1.020 1 - 1.03 [facility] Urobilinogen, UA 1.0 0.2 - 12 mg/dL [facility] Health[facility] Glucose 1 Hr post dose gluco se [Mass/Vol]on 05-03-2023 1ST HR GTT 176 mg/dL High 120-170 [facility] Comment on above: Performed By: #### 2 0438-8 #### [facility] ([id number]) [address] [place] [address], [address] [place] [address] Glucose 2 Hr post 100 g gluc ose PO [Mass/Vol]on 05-03-2023 2ND HR GTT 100GM LOAD 137 mg/dL Normal 70-139 [facility] Comment on above: Result Comment: Fourth International Workshop Conference: Recommendations and Rationale for Screening and Diagnosis of Gestational Diabetes Mellitus 2 or more of the following must be met or exceeded for a positive diagnosis. FASTING >=95mg/dL 1hr post 100g load >=180mg/dL 2hr post 100g load >=155mg/dL 3hr post 100g load >=140mg/dL Performed By: #### 1 514-9 #### [facility] ([id number]) [address], [address] [place] [address] Glucose 3 Hr post dose gluco se [Mass/Vol]on 05-03-2023 3RD HR GTT 102 mg/dL High 65-99 [facility] Comment on above: Performed By: #### 2 0437-0 #### [facility] ([id number]) [address] [place] [address] Glucose post fast [Mass/Vol] on 05-03-2023 FASTING GTT 83 mg/dL Normal 65-99 [facility] Comment on above: Performed By: #### 1 558-6 #### [facility] ([id number]) [address] [place] [address] Quick Strepon 05-07-2021 S. pyogenes Org specific cx Ql (Throat) Negative [employer] Other [email or web address] 10-26-2018 Send Out Report [facility] Normal [facility] Comment on above: Performed By: #### C MIS #### [facility] [place], [place] [id number] Leather Softener: Rod Mott MD [facility]2018 Test Name COUNSYL KIT Normal [facility] Comment on above: Performed By: #### C MIS #### [facility] [place], [place] [id number] Leather Softener: Rod Mott MD ABO AND RH TYPEon 10-05-2018 ABO and Rh group Nom (Bld) ABO Rh Typing A Rh Positive Normal [facility] Comment on above: Performed By: #### A JORGE #### [facility] [address] [place], [place] [address] Jaswant Reza CBC AUTO DIFFon 10-05-2018 Basophils (Bld) [#/Vol] 0.0 103/ul Normal 0.0-0.1 [facility] Comment on above: Performed By: #### C BC #### [facility] [address] [place], [place] [address] Jaswant Libia Basophils/100 WBC (Bld) 0.3 % Normal 0.2-2.0 [facility] Comment on above: Performed By: #### C BC #### [facility] [address] [place], [place] [address] Jaswant Libia Eosinophils (Bld) [#/Vol] 0.2 103/ul Normal 0.0-0.7 [facility] Comment on above: Performed By: #### C BC #### [facility] [address] [place], [place] [address] Jaswant Libia Eosinophils/100 WBC (Bld) 1.8 % Normal 0.9-7.0 [facility] Comment on above: Performed By: #### C BC #### [facility] [address] [place] [address] Jaswant Libia Erythrocyte distribution width (RBC) [Ratio] 12.2 % Normal 11.0-15.0 [facility] Comment on above: Performed By: #### C BC #### [facility] [address] [place], [place] [address] Jaswant Libia Hematocrit (Bld) [Volume fraction] 35.7 % Critically low 36.0-48.0 [facility] Comment on above: Performed By: #### C BC #### [facility] [address] [place], [place] [address] Jaswant Libia Hemoglobin (Bld) [Mass/Vol] 12.2 g/dL Normal 12.0-16.0 [facility] Comment on above: Performed By: #### C BC #### [facility] [address] [place], [place] [address] Jaswant Libia IG # 0.05 10e3/ul Critically high 0.00-0.03 [facility] Comment on above: Performed By: #### C BC #### [facility] [address] [place], [place] [address] Jaswant Libia IG % 0.5 % Normal 0.0-0.5 [facility] Comment on above: Performed By: #### C BC #### [facility] [address] [place] [id number] Jaswant Libia Lymphocytes (Bld) [#/Vol] 2.9 103/ul Normal 1.2-3.8 [facility] Comment on above: Performed By: #### C BC #### [facility] [address] [place] [id number] Jaswant Libia Lymphocytes/100 WBC (Bld) 27.6 % Normal 20.5-60.0 [facility] Comment on above: Performed By: #### C BC #### [facility] [address] [place], [place] [address] Jaswant Libia MANUAL DIFF REQ NO Normal [facility] Comment on above: Performed By: #### C BC #### [facility] [address] [place], [place] [address] Jaswant Libia MCH (RBC) [Entitic mass] 30.0 pg Normal 26.7-34.0 [facility] Comment on above: Performed By: #### C BC #### [facility] [address] [place], [place] [address] Jaswant Libia MCHC (RBC) [Mass/Vol] 34.2 g/dL Normal 29.9-35.2 [facility] Comment on above: Performed By: #### C BC #### [facility] [address] [place], [place] [address] Jaswant Libia MCV (RBC) [Entitic vol] 87.7 fL Normal 81.0-99.0 [facility] Comment on above: Performed By: #### C BC #### [facility] [address] [place] [id number] Jaswant Libia Monocytes (Bld) [#/Vol] 0.9 103/ul Critically high 0.3-0.8 [facility] Comment on above: Performed By: #### C BC #### [facility] [address] [place] [id number] Jaswant Libia Monocytes/100 WBC (Bld) 8.2 % Normal 1.7-12.0 [facility] Comment on above: Performed By: #### C BC #### [facility] [address] [place], [place] [address] Jaswant Libia Neutrophils (Bld) [#/Vol] 6.5 103/ul Normal 1.4-6.5 [facility] Comment on above: Performed By: #### C BC #### [facility] [address] [place] [address] Jaswant Libia Neutrophils/100 WBC (Bld) 61.6 % Normal 43.0-75.0 [facility] Comment on above: Performed By: #### C BC #### [facility] [address] [place] [address] Jaswant Libia Platelet mean volume (Bld) [Entitic vol] 10.2 fL Normal 9.5-13.5 [facility] Comment on above: Performed By: #### C BC #### [facility] [address] [place], [place] [address] Jaswant Libia Platelets (Bld) [#/Vol] 315 103/ul Normal 150-450 [facility] Comment on above: Performed By: #### C BC #### [facility] [address] [place] [address] Jaswant Libia RBC (Bld) [#/Vol] 4.07 106/ul Critically low 4.20-5.[address] [facility] Comment on above: Performed By: #### C BC #### [facility] [address] [place] [address] Jaswant Libia WBC (Bld) [#/Vol] 10.5 103/ul Normal 4.0-11.0 [facility] Comment on above: Performed By: #### C BC #### [facility] [address] [place] [address] Jaswant Libia ER URINE PROFILEon 9 Bilirubin [Mass/Vol] Negative Normal NEGATIVE [facility] Comment on above: Performed By: #### E RUR #### [facility] [address] [place], [place] [address] Jaswant Libia BLOOD Negative Normal NEGATIVE [facility] Comment on above: Performed By: #### E RUR #### [facility] [address] [place] [address] Jaswant Libia Clarity (U) CLEAR Normal [facility] Comment on above: Performed By: #### E RUR #### [facility] [address] [place] [address] Jaswant Libia Color (U) LT. YELLOW Normal YELLOW [facility] Comment on above: Performed By: #### E RUR #### [facility] [address] [place] [address] Jaswant Libia ERUAHD A micrscopic examination will be performed if indicated. Normal [facility] Comment on above: Performed By: #### E RUR #### [facility] [address] [place] [address] Jaswant Libia Glucose [Mass/Vol] Negative Normal NEGATIVE [facility] Comment on above: Performed By: #### E RUR #### [facility] [address] [place] [address] Jaswant Libia Ketones Ql (U) Negative Normal NEGATIVE [facility] Comment on above: Performed By: #### E RUR #### [facility] [address] [place] [address] Jaswant Libia Nitrite Ql (U) Negative Normal NEGATIVE [facility] [place] Comment on above: Performed By: #### E RUR #### [facility] [address] [place] [address] Jaswant Libia pH (Bld) 5.5 Normal 5-9 [facility] Comment on above: Performed By: #### E RUR #### [facility] [address] [place] [address] Jaswant Libia Protein (U) [Mass/Vol] Negative Normal [facility] Comment on above: Performed By: #### E RUR #### [facility] [address] [place] [address] Jaswant Libia SPEC GRAVITY 1.010 Normal 1.005-<=1.025 [facility] Comment on above: Performed By: #### E RUR #### [facility] [address] [place] [address] Jaswant Reza UR MICRO IND NOT INDICATED Normal [facility] Comment on above: Performed By: #### E RUR #### [facility] [address] [place] [phone] Jaswant Reza Urobilinogen Qn (U) 0.2 EU/dl Normal [facility] Comment on above: Performed By: #### E RUR #### [facility] [address] [place] [address] Jaswant Reza WBC (Bld) [#/Vol] Negative Normal NEGATIVE [facility] Comment on above: Performed By: #### E RUR #### [facility] [address] [place], [place] [address] Jaswant Reza PREG QUANT HCGon 10-05-2018 HCG QUANT 48638.00 mIU/mL Normal [facility] Comment on above: Result Comment: VERI FIED BY DILUTION Performed By: #### P REGQNT #### [facility] [address] [place] [address] Jaswant Libia HCG RANGE SEE BELOW Normal [facility] Comment on above: Result Comment: 5-50 0-1 WEEK 40-300 1-2 WEEKS 100-1,000 2-3 WEEKS 500-6,000 3-4 WEEKS 5,000-200,000 1-2 MONTHS 10,000-100,000 2-3 MONTHS 3,000-50,000 2ND TRIMESTER 1,000-50,000 3RD TRIMESTER Performed By: #### P REGQNT #### [facility] [address] [place] [address] Jaswant Reza PROF CHEM 8 (BAS METB)on Anion gap [Moles/Vol] 13.8 mmol/L Normal [facility] Comment on above: Performed By: #### B MP #### [facility] [address] [place] [id number] Jaswant Reza Calcium [Mass/Vol] 9.5 mg/dL Normal 8.4-10.2 [facility] Comment on above: Performed By: #### B MP #### [facility] [address] [place] [id number] Jaswant Libia Chloride [Moles/Vol] 102 mmol/L Normal 98-107 [facility] Comment on above: Performed By: #### B MP #### [facility] [address] [place] [address] Jaswant Libia CO2 [Moles/Vol] 23.9 mmol/L Normal 22.0-30.0 [facility] Comment on above: Performed By: #### B MP #### [facility] [address] [place] [address] Jaswant Libia Creatinine [Mass/Vol] 0.45 mg/dL Critically low 0.52-1.04 [facility] Comment on above: Performed By: #### B MP #### [facility] [address] [place] [address] Jaswant Libia EGFR-AF TOGOLESE >60 Normal >=60 [facility] Comment on above: Performed By: #### B MP #### [facility] [address] [place] [address] Jaswant Libia EGFR-NON AF TOGOLESE >60 Normal >=60 [facility] Comment on above: Performed By: #### B MP #### [facility] [address] [place] [id number] Jaswant Libia Glucose [Mass/Vol] 78 mg/dL Normal 74-106 [facility] Comment on above: Performed By: #### B MP #### [facility] [address] [place] [address] Jaswant Libia Potassium [Moles/Vol] 3.7 mmol/L Normal 3.4-5.0 [facility] Comment on above: Performed By: #### B MP #### [facility] [address] [place] [address] Jaswant Libia Sodium [Moles/Vol] 136 mmol/L Critically low 137-[address] [facility] Comment on above: Performed By: #### B MP #### [facility] [address] [place] [address] Jaswant Libia Urea nitrogen [Mass/Vol] 5.0 mg/dL Critically low 7.0-17.0 [facility] Comment on above: Performed By: #### B MP #### [facility] [address] [place], [place] [address] Jaswant Reza Urea nitrogen/Creatinine [Mass ratio] 11.1 mg/mg Normal [facility] Comment on above: Performed By: #### B MP #### [facility] [address] [place], [place] [address] Jaswant Reza US PREG PLACENTAon 9 US PREG PLACENTA Patient: ANITA OCHOA Exam Date: 10/05/2018 : 1990 Gender:F Ordering : DR. MARYANN DALY M.D. Admission #: [id number] Family : Order #: [id number] CLICK HERE TO VIEW EXAM RADIOLOGY REPORT [...] Rose M.D. on 10/05/2018 at 21:25 Normal [facility] Vital Signs Date Time Vital Sign Value Performing Clinician Facility 06-30-2023 10:23-050 Body mass index (BMI) [Ratio] 39.27 kg/m2 [employer] DO Work Phone: [facility] 06-30-2023 10:050 Body weight 103.78 kg [employer] Work Phone: [facility] 06-30-2023 10:23-0500 Diastolic blood pressure 76 mm[Hg] [employer] Work Phone: [facility] 06-30-2023 10:23-0500 Systolic blood pressure 116 mm[Hg] Karan Farmer DO Work Phone: [facility] 11-08-2022 12:15-0400 Body height 167.64 cm Cristal Grovermond Other [facility] Other 11-08-2022 12:15-0400 Body mass index (BMI) [Ratio] 30.02 kg/m2 Cristal Tequila Other [facility] Other 11-08-2022 12:15-0400 Body temperature 98.3 [degF] Cristal Tequila Other [facility] Other 11-08-2022 12:15-0400 Body weight 84.37 kg Cristal Mandel Other [facility] Other 11-08-2022 12:15-0400 Respiratory rate 18 /min Cristal Mandel Other [facility] Other 11-08-2022 12:15-0400 SaO2% (BldA) [Mass fraction] 99 % Cristal Mandel Other [facility] Other 05-07-2021 13:30-0500 Body height 167.64 cm Cristal Grovermond Other [facility] Other 05-07-2021 13:30-0500 Body mass index (BMI) [Ratio] 29.05 kg/m2 Cristal Tequila Other [facility] Other 05-07-2021 13:30-0500 Body temperature 97.9 [degF] Cristal Tequila Other [facility] Other 05-07-2021 13:30-0500 Body weight 81.65 kg Cristal Mandel Other [facility] Other 05-07-2021 13:30-0500 Respiratory rate 18 /min Cristal Mandel Other [facility] Other 05-07-2021 13:30-0500 SaO2% (BldA) [Mass fraction] 99 % Cristal Mandel Other [facility] Other Encounters Encounter Date Encounter Type Care Provider Facility Start: 10-21-2023 End: 10-21-2023 ambulatory KARAN DARIAN Not Available Start: 09-20-2023 End: 09-20-2023 ambulatory MELINA AYSE Not Available Start: 07-29-2023 End: 07-29-2023 ambulatory [facility] Start: 07-28-2023 End: 07-28-2023 ambulatory KARAN DARIAN Not Available Start: 07-21-2023 End: 07-21-2023 ambulatory KARAN DARIAN Not Available Start: 07-14-2023 End: 07-14-2023 ambulatory MELINA AYSE Not Available Start: 06-30-2023 End: 06-30-2023 flow sheet Karan Darian DO Work Phone: [facility] Comment on above: Third trimester preg prince Start: 06-30-2023 End: 06-30-2023 ambulatory AKRAN DARIAN Not Available Start: 06-24-2023 End: 06-24-2023 ambulatory [facility] Start: 06-14-2023 End: 06-14-2023 ambulatory MELINA AYSE Not Available Start: 05-31-2023 End: 05-31-2023 ambulatory KARAN DARIAN Not Available Start: 05-27-2023 End: 05-27-2023 ambulatory [facility] Start: 05-03-2023 End: 05-04-2023 ambulatory OMKAR CONWAY [facility] Start: 11-08-2022 End: 11-08-2022 ambulatory Cristal Mandel Other [facility] Other Start: 11-08-2022 Office outpatient vi sit 15 minutes Cristal Mandel [facility] Start: 05-07-2021 (URG) Urgent Care Visit Cristal Burciaga lara [facility] Start: 05-07-2021 End: 05-07-2021 ambulatory Cristal Mandel Other [facility] Other Start: 10-25-2018 End: 10-26-2018 Patient encounter procedure RENETTA ALTMAN [facility] Start: 10-05-2018 End: 10-06-2018 Patient encounter procedure NONE LISTED REQUEST Facility: Start: 04-20-2018 End: 04-20-2018 Emergency department patient visit [facility] Start: 03-24-2018 End: 03-24-2018 Patient encounter procedure NONE LISTED REQUEST Facility: Procedures Date Procedure Procedure Detail Performing Clinician Start: 06-30-2023 Urnls dip stick/tabl et rgnt non-auto w/o micrscp Karan Farmer DO Work Phone: Start: 10-25-2018 Unlisted chemistry procedure RENETTA ALTMAN Plan of Treatment Date Care Activity Detail Author Start: 07-14-2023 End: 07-14-2023 Patient encounter procedure 07/14/2023 8:50 AM EST Routine [facility] [address] [place] [id number] Melina Monge PA [address] [place] [address] [facility] Immunizations Immunization Date Immunization Notes Care Provider Fa cility 11-08-2022 tetanus toxoid, reduced diphtheria toxoid, and acellular pertussis vaccine, adsorbed Cristal Mandel Other [facility] Other Payers Date Payer Category Payer Medicaid ANTHEM BCBS [facility] [employer] BCBS [place]ICA[place] [id number] 2022-Present [address] [place] [address] [id number] 2022 Medicaid [id number] 2021 Unknown BCBS BCBS xxxxxx [id number] 2021-Present [phone] [address] [place] [address] [id number] [id number] 2021 Unknown [id number] 1990 Unknown [id number] 2.16.840.1.537727.3.579.2.175 1990 Unknown [id number] 2.16.840.1.121932.3.579.2.593 1992 Unknown [id number] 2.16.840.1.516783.3.579.2.593 1992 Unknown [id number] 2.16.840.1.374642.3.579.2.1286 1992 Unknown [id number] 2.16.840.1.756911.3.579.2.1286 1992 Unknown [id number] 2.16.840.1.510495.3.579.2.1286 1992 Unknown [id number] 2.16.840.1.923073.3.579.2.1286 1992 Unknown [id number] 2.16.840.1.961494.3.579.2.1286 1992 Unknown [id number] 2.16.840.1.142193.3.579.2.1259 1992 Unknown [id number] 2.16.840.1.574477.3.579.2.1259 1992 Unknown [id number] 2.16.840.1.540320.3.579.2.9 1992 Unknown [id number] 2.16.840.1.209297.3.579.2.1258 1992 Unknown [id number] 2.16.840.1.966640.3.579.2.1258 1992 Unknown [id number] 2.16.840.1.959339.3.579.2.1258 1992 Unknown [id number] 2.16.840.1.441979.3.579.2.1258 1992 Unknown [id number] 2.16.840.1.816294.3.579.2.9 1959 Self-pay [id number] 1957 Unknown [id number] Unknown [id number] 2..840.1.791188.19 Social History Date Type Detail Facility Unknown if ever smoked [facility] [employer] Other [employer] [facility] [employer] Other Tobacco smoking status TNIS Tobacco smoking consumption unknown [facility] Start: [...] Past Medical History: Diagnosis Date Broken nose 2007 Family History Problem Relation Name Age of [...] nursing note reviewed. Exam conducted with a vat skimmer present. Vitals: Estimated body mass index is [...] Karan Farmer DO documented in this encounter [facility] Evaluation note 11-08-2022 Note Date & [...] right hand, initial encounter (ICD-10 - S61.451A) [facility] Other Evaluation note Note Date & Type Note Facility Evaluation note [facility] Other Evaluation note Note Date & Type Note Facility Evaluation note Diagnosis Third trimester state, incidental documented in this encounter [facility] History general Narrative - Reported Note Date & Type Note Facility History general Narrative - Reported [facility] Other History general Narrative - Reported Note Date & Type Note Facility History general Narrative - Reported Type Surgical History tonsillectomy [facility] Other Summary Purpose Family History No Family [...] section and content) DATE CREATED AUTHOR 04/26/2018 [facility] DATE CREATED AUTHOR AUTHOR'S ORGANIZ ATION 10/26/2018 [facility] DATE CREATED AUTHOR AUTHOR'S ORGANIZ ATION 12/25/2018 [facility] DATE CREATED AUTHOR AUTHOR'S ORGANIZ ATION 05/07/2023 [facility] DATE CREATED AUTHOR AUTHOR'S ORGANIZ ATION 07/30/2023 [facility] DATE CREATED AUTHOR AUTHOR'S ORGANIZ ATION 10/22/2023 [facility] EPIC REASON FOR VISIT (unrecogniz ed section and [...] BE BASED ON THE PRIMARY CLINICAL RECORDS. [facility]. provides no warranty or guarantee of the accuracy or completeness of information in this document.
[2024-01-19 10:09] LABS: Age Gdln ACOG Testing Note (.); HPV Aptima Negative (Negative); IGP, Aptima HPV, rfx 16/18,45 Note (.)
== END 2024-01-13 19:07 | disposition home or self-care (01) ==
LOC: LAB 19:06
PROVIDERS: Visit Provider Physician Assistant
DX: Z01.419 Encounter for gynecological examination (general) (routine) without abnormal findings (principal)
CPT/HCPCS: 87624; 88175

== ENCOUNTER 2024-12-03 12:40 | Emergency (ER) | payer BC, SELFPAY ==
--- OUTSIDE RECORDS SUMMARY | 2024-07-03 06:00 | XMS_ITS ---
Author Organization [facility] vices Address [address] [place] [phone] Care Team Providers Care Non Licensed Nuclear Equipment Operator Name Role Phone Michelleradha Toma Unavailable [phone] REASON FOR VISIT Rest #3,#6 Social History Sex Assigned At : Social History Observation Description Sex Assigned At Female Encounters Encounter Location Date Provider Diagnosis [facility] [address] [place], [place] [id number] 07/03/2024 Tmoa Lopez Plan Of Treatment No Information Progress Notes * Anita OCHOA HDOB: 3 (34 yo F)Acc No.[id number]:07/03/2024 Patient: Anita GOULD Provider: Aysha Lopez DMD :1990 A ge:33 Y S ex:Female Date:07/03/2024 Address:[address] [place], [place] [phone] Subjective: * Chief Complaints: * 1 . Rest #3,#6. * Medical History: Objective: * Vitals: Assessment: Plan: * Treatment: * Billing Information: * Visit Code: * Procedure Codes: * Electronic signature of Lupe Lopez DMD on 12/03/2024 at 12:45 PM EDT Sign off status: Pending * Provider: Aysha Lopez DMD Date: 0 07/03/2024 Generated for Printi ng/Faxing/eTransmitting on: 0 12/03/2024 12:45 PM EDT
[2024-12-03] VITALS (16 sets, daily range): BP systolic 120–123; BP diastolic 69–80; PULSE 65–102; TEMP 36.8; O2SAT 97–100; BMI 28.7
--- OUTSIDE RECORDS SUMMARY | 2024-12-03 12:45 | XMS_ITS | Clinical Summary ---
Author Organization [facility] Address [address], [address] [place] [address] Care Team Providers Care Log Cooker Name Role Phone Unavailable Primary Care Provider Unavailabl e Allergies Active Allergy Reactions Criticality Noted Date Comments Citalopram Rash Low 04/20/2018 Medications acyclovir (ZOVIRAX) 400 MG tablet as needed 0 07/29/2018 Active RA SLEEP AID 25 MG tablet as needed 0 08/15/2018 Active FLUoxetine (PROZAC) 10 MG capsule 2 times daily 0 08/17/2018 Activ e metoclopramide (REGLAN) 5 MG tablet 3 times daily 0 08/22/2018 Activ e RA VITAMIN B-6 50 MG tablet 2 times daily 0 08/15/2018 Ac tive amoxicillin (AMOXIL) 500 MG capsule take 1 capsule by mouth three times a day until finished 0 10/19/2018 Active buprenorphine (SUBUTEX) 8 MG SUBL SL tablet DISSOLVE 1 TABLET UNDER TONGUE DAILY 0 10/15/2018 Active DOK 100 MG capsule 0 10/19/2018 Active Social History Tobacco Use Types Packs/Day Years Used Date Smoking Tobacco: Every Day Cigarettes Smokeless Tobacco: Never Tobacco Cessation:Ready to Q uit: No; Counseling Given: Yes Comments: 1/2pk/cigs/day 10/25/2018 Alcohol Use Standard Drinks/Week Comments No 0 (1 standard drink = 0.6 oz pur e alcohol) occ Comments No Sex and Gender Information Value Date Recorded Sex Assigned at Not on file Legal Sex Female 7:13 PM EDT Gender Identity Not on file Sexual Orientation Not on file Last Filed Vital Signs Vital Sign Reading Time Taken Comments Blood Pressure 116/64 10/25/2018 1:42 PM EDT Pulse 76 10/25/2018 1:42 PM EDT Temperature 37 C (98.6 F) 10/25/2018 1:42 PM EDT Respiratory Rate 16 10/25/2018 1:42 PM EDT Oxygen Saturation 100% 04/20/2018 12:52 PM EST Inhaled Oxygen Concentration - - Weight 81.2 kg (179 lb) 10/25/2018 1:42 PM EDT Height 167.6 cm (5' 6 ) 10/25/2018 1:42 PM EDT Body Mass Index 28.89 10/25/2018 1:42 PM EDT Plan of Treatment Not on file Insurance [employer]
--- OUTSIDE RECORDS SUMMARY | 2024-12-03 12:45 | XMS_ITS | Encounter Summary ---
Author Organization [facility] [facility] Address [id number] [place] [address] Care Team Providers Care Knitting Machine Fixer Head Name Role Phone Redd Ulrich PA-C Primary Care Provider Encounter Details Date Type Department Care Team (Late st Contact Info) Description 02/24/2023 Orders Only [facility] [address] [place] [phone] Irina Parks MD [address] [place], [place] [id number] Social History Tobacco Use Types Packs/Day Years Used Date Smoking Tobacco: Every Day Vaping/E-cigarettes Smokeless Tobacco: Never Alcohol Use Standard Drinks/Week Comments Not Currently 0 (1 standard drink = 0.6 oz pur e alcohol) occasional Childcare Answer Date Recorded Childcare Unknown 10/26/2018 Employment Answer Date Recorded Employment Unknown 10/26/2018 Purpose - Life Answer Date Recorded Purpose and direction in life Unknown Comments Yes Sex and Gender Information Value Date Recorded Sex Assigned at Not on file Legal Sex Female 11:47 AM EDT Gender Identity Not on file Sexual Orientation Not on file documented as of this encounter Plan of Treatment Not on file documented as of this encounter Procedures Procedure Name Priority Date/Time Associated Diagnosis Comments FREE CELL DNA (NON-[facility] SEND OUT) Routine 02/19/2023 9:15 AM EDT documented in this encounter Results * Free Cell DNA (02/19/2023 9:15 AM EDT) us Irina Parks MD LAB BLOOD ORDERABLES Final Res ult MANUALLY TRANSCRIBED RESULTS documented in this encounter Visit Diagnoses Not on filedocumented in this encounter Additional Health Concerns Assessment Noted Time A Body Mass Index follow-up plan has been documented for the patient 12/26/2021 8:29 AM EDT documented as of this encounter Care Teams Knitting Machine Fixer Head Relationship Specialty Start Date End Date Redd Ulrich PA-C [address] [place] [address] PCP - General Physician Occasional Caregiver 01/04/21 documented as of this encounter"
--- OUTSIDE RECORDS SUMMARY | 2024-12-03 12:46 | XMS_ITS | CCD ---
Author Organization [facility] Care Team Providers Care Legal Assistant Name Role Phone CHIQUITA ARTIS Unavailable Un available RENETTA ALTMAN Referring Unavailable REQUEST, NONE LISTED Primary Care Unavailable KALLI, ABNER Admitting Unavailable HAY, ABNER Attending Unavailable KALLI, ABNER Consulting Unavailable REQUEST, NONE LISTED Primary Care Unavailable STRUS, MARYANN Admitting Unavailable STRUS, MARYANN Attending Unavailable VIVIANE ROSE V Consulting Unavailable STRUS, MARYANN Consulting Unavailable Cristal Mandel Unavailable OMKAR CONWAY Referring Unavailable ELDON ULRICH Primary Care Unavailable Unavailable Primary Care Provider UnavailELDON Lal Referring Unavailable JIM, ELDON Germain Primary Care Unavailable JIM, ELDON Germain Referring Unavailable JIM, ELDON Germain Primary Care Unavailable DAVID NOVAK Attending Unavailable ELIZABETH RODRIGUEZ Referring Unavailable JIM, ELDON Germain Primary Care Unavailable ELDON ULRICH Referring Unavailable JIM, ELDON Germain Primary Care Unavailable DARIAN, KARAN Attending Unavailable AYSE, MELINA Attending Unavailable DARIAN, KARAN Attending Unavailable AYSE, MELINA Attending Unavailable DARIAN, KARAN Attending Unavailable DARIAN, KARAN Attending Unavailable AYSE, MELINA Attending Unavailable DARIAN, KARAN Attending Unavailable PATEL Godfrey Attending Unavailable PATEL Godfrey Admitting Unavailable Provider, None Primary Care Unavailable Eldon Ulrich PA-C Primary Care Provider [phone] Allergies Allergy Classification Reported Allergen(s) Allergy Type Date of Onset Reaction(s) Facility (3 sources) Citalopram; Translations: [CITALOPRAM] Drug Allergy 08-17-2016 [facility] Repository (12 sources) Citalopram Drug Allergy 12-18-2017 Chelita conde [facility] (1 source) Citalopram; Translations: [CeleXA] Drug Allergy [facility] Repository Medications Current Medications Medication Drug Class(es) Dates Sig (Normalized) Sig (Original) acetaminophen 500 mg oral tablet (10 sources) take 1 tablet by mouth every six hours as needed acetaminophen (Tylenol) 500 MG tablet Take 500 mg by mouth every 6 (six) hours if needed Active amoxicillin 875 mg / clavulanate 125 mg oral tablet (1 source) Penicillin-class Antibacterial Start: 11-08-2022 take 1 tablet by mouth every twelve hours Amoxicillin-Pot Clavulanate 875-125 MG 1 tablet Orally every 12 hrs for 10 day(s) Oct, Active cetirizine hydrochloride 10 mg oral tablet (7 sources) Histamine-1 Receptor Antagonist take 1 tablet by mouth in the morning cetirizine (ZyrTEC) 10 mg tablet Take 1 tablet (10 mg total) by mouth in the morning. Active take 1 tablet by mouth once ruth y ZyrTEC Allergy 10 MG 1 tablet Orally Once a day Active docusate sodium 100 mg oral capsule (13 sources) Start: 12-30-2022 End: 01-13-2024 take 1 capsule by mouth twice daily for constipation docusate sodium (COLACE) 100 mg capsule Indications: Constipation during in first trimester take 1 capsule by mouth twice a day if needed for constipation 60 capsule 1 06/18/2023 Active lactobacillus acidophilus [id number] unt / pectin 100 mg oral tablet (6 sources) acidophilus-pect in , citrus 25 million cell -100 mg tablet Take by mouth 3 (three) times a day with meals. Active levonorgestrel 0.096729 mg/hr intrauterine system (4 sources) Progestin, Progestin-contain ing Intrauterine Device Start: 10-21-2023 End: 10-19-2028 Levonorgestrel intrauterine device 52 mg multivit 18-dtwa-zycbqs 1-dha (WESCAP-PN DHA) 27 mg iron-1 mg -300 mg capsule (2 sources) Start: 11-24-2023 take 1 capsule by mouth in the morning multivit 28-mgzl-jsxhtz 1-dha (WESCAP-PN DHA) 27 mg iron-1 mg -300 mg capsule take 1 capsule by mouth in the morning 90 capsule 3 11/24/2023 Active omega-3 acid ethyl esters (longterm) 1000 mg oral capsule (10 sources) take 1 capsule by mouth in the morning omega-3 acid ethyl esters (Lovaza) 1 g capsule Take 2 g by mouth in the morning and 2 g in the evening. Active Prenat w/o T-IY-Dyhzpsi-FA-DHA (WesCap-PN DHA) 27-0.6-0.4-300 MG capsule (6 sources) Start: 12-23-2023 End: 01-22-2024 take 1 capsule by mouth once daily Prenat w/o U-IP-Qryoggf-FA-DH A (WesCap-PN DHA) 27-0.6-0.4-300 MG capsule Indications: 6 weeks follow-up Take 1 capsule by mouth Daily 30 capsule 3 12/23/2023 01/22/2024 Active take 1 capsule by [facility] in the morning Prenat w/o Q-QI-Puhnxxp-FA-DHA (WesCap-P N DHA) 27-0.6-0.4-300 MG capsule Take 1 capsule by mouth in the morning. 0 Active valACYclovir 500 mg oral tablet (10 sources) Herpesvirus Nucleoside Analog DNA Polymerase Inhibitor, Herpes Simplex Virus Nucleoside Analog DNA Polymerase Inhibitor, Herpes Zoster Virus Nucleoside Analog DNA Polymerase Inhibitor Start: 12-30-2022 End: 01-22-2024 take 1 tablet by mouth in the morning valACYclovir (Valtrex) 500 MG tablet Indications: HSV infection Take 1 tablet (500 mg) by mouth in the morning. 30 tablet 12/23/2023 01/22/2024 Active Completed/Discontinued Medications Medication Drug Class(es) Dates [...] every evening Oral for 30 Days Not-Taking cholecalciferol 0.01 mg/ml oral solution (13 sources) Vitamin D Start: 08-09-2023 End: 01-13-2024 D-Vi-Lynnette 10 MCG/ML liquid 08/09/2023 01/13/2024 Discontinued cholecalciferol (Vitamin D-3) 50 MCG (1999 UT) tablet Take by mouth Daily Active cloNIDine hydrochloride 0.2 mg oral tablet (1 [...] 50 MG Oral for 5 Days Not-Taking WESCAP-PN DHA 27 mg iron-1 mg -300 mg capsule (3 sources) Start: 12-05-19 End: 11-24-19 24 take 1 capsule by mouth in the morning WESCAP-PN DHA 27 mg iron-1 mg -300 mg capsule Take 1 capsule by mouth in the morning. 12/04/2022 11/24/2023 Discontinued Start: 12-04-2022 take 1 capsule by [facility] in the morning WESCAP-PN DHA 27 mg iron-1 mg -300 mg capsule Take 1 capsule by mouth in the morning. 0 12/04/2022 Active Problems Active Problems Problem Classification Problem Date Documented Da te Episodic/Chronic Abdominal pain (4 sources) Unspecified abdominal pain; Translations: [UNSPECIFIED ABDOMINAL PAIN] Onset: 10-05-2018 Episodic Disorders of teeth and jaw (3 sources) Other specified disorders of teeth and supporting structures; Translations: [OTH SPEC DISORDERS TEETH SUPP STRCT] Onset: 03-24-2018 E Codes: Natural/environment (1 source) Bitten by cat, initial encounter Episodic Mood disorders (8 sources) Depressive disorder; Translations: [Depression] Onset: 03-06-2019 Resolved: 03-08-2023 03-06-2019 Chronic Open wounds of extremities (1 source) Open [...] normal , unspecified, third trimester] 06-25-2023 Episodic Residual codes; unclassified (1 source) Cystic fibrosis carrier; Translations: [Cystic fibrosis carrier] Onset: 07-29-2023 Episodic Residual codes; unclassified (1 source) 18 weeks gestation of ; Translations: [18 WEEKS GESTATION OF ] Onset: 10-07-2018 Substance-related disorders (5 sources) Nicotine dependence, cigarettes, uncomplicated; Translations: [History of drug abuse] Onset: 10-07-2018 03-06-2019 Chronic Unclassified (1 source) Other psychoactive substance use, unspecified, in remission; Translations: [Other psychoactive substance use, unspecified, in remission] Onset: 03-06-2019 Viral infection (4 sources) Anogenital herpesviral infection; Translations: [Anogenital herpesviral infection, unspecified] Onset: 03-06-2019 03-06-2019 Chronic Past or Other Problems Problem Classification Problem Date Documented Da te Episodic/Chronic Contraceptive and procreative management (2 sources) Intrauterine contraceptive device in situ; Translations: [Encounter for routine checking of intrauterine contraceptive device] 01-13-2024 Episodic Diabetes mellitus without complication (4 sources) Abnormal glucose tolerance test; Translations: [Other abnormal glucose] Onset: 12-21-2022 12-21-2022 Episodic Disorders of teeth and jaw (4 sources) Periapical abscess without sinus; Translations: [Dental caries, unspecified] Onset: 03-28-2018 Episodic Immunizations and screening for infectious disease (1 source) Contact with and (suspected) exposure to other viral communicable diseases Onset: 05-07-2021 Resolved: 05-07-2021 Episodic Other complications of (4 sources) H/O: previous delivery by vacuum extraction; Translations: [Supervision of with other poor reproductive or obstetric history, unspecified trimester] Onset: 12-17-2022 12-17-2022 Episodic Other complications of (4 sources) Rubella non-immune; Translations: [Supervision of other high risk pregnancies, unspecified trimester] Onset: 12-21-2022 12-21-2022 Episodic Other complications of (5 sources) Diseases of the digestive system complicating , unspecified trimester; Translations: [Other current conditions classifiable elsewhere of mother, unspecified as to episode of care or not applicable] Onset: 12-30-2022 12-30-2022 Episodic Other gastrointestinal disorders (2 sources) Constipation; Translations: [Constipation, unspecified] 01-13-2024 Episodic Other upper respiratory infections (2 sources) Acute upper respiratory infection, unspecified; Translations: [Acute pharyngitis, unspecified] Onset: 05-07-2021 Resolved: 05-07-2021 Episodic Polyhydramnios and other problems of amniotic cavity (7 sources) Polyhydramnios, third trimester, not applicable or unspecified; Translations: [Polyhydramnios with problem] Onset: 04-29-2023 05-27-2023 Episodic Residual codes; unclassified (1 source) Tobacco use; Translations: [Tobacco use] Onset: 12-17-2022 Episodic Residual codes; unclassified (4 sources) Carrier of cystic fibrosis gene mutation; Translations: [Cystic fibrosis carrier] Onset: 03-06-2019 03-06-2019 Episodic Residual codes; unclassified (2 sources) H/O: 1 miscarriage; Translations: [Personal history of other complications of , childbirth and the puerperium] Onset: 12-17-2022 12-17-2022 Episodic Residual codes; unclassified (4 sources) Nicotine-filled electronic cigarette user; Translations: [Tobacco use] Onset: 12-17-2022 3 Episodic Residual codes; unclassified (2 sources) H/O: miscarriage; Translations: [Personal history of other complications of , childbirth and the puerperium] Onset: 12-17-2022 12-17-2022 Episodic Unclassified (4 sources) Onset: 12-26-2021 12-26-2021 Results Test Name Value Interpretation Reference Range Facility Lab - Toxicology Resultson 1 06-03-2023 Lab - Toxicology Results [id number] [facility] Triage Panel 10on 04-02-2024 Drug Screen Complete Collected [facility] Comment on above: Performed By: #### [id number] #### [facility] (DEFAULT) [address] [place] [address] Coding Summaryon 03-31-2024 Coding Summary HTMLBase 64 EruhyxmlPRj3wNf+PGhl YWQ+TE2UZBHtF23rjOJl nG4dQ9NJLSzLAzlaOXSJ ZQtZNpXbvvNqMO8bqAVn ZXJu IC8+ZW0qLLUgKntymXXo q0M1aFM9L51wns3dRXdb oPH5OQQvRlFojzaaw4dy cHh2EJhuDryrLyMx YNFtgL73HQI3nK10Ow79 sBBfjPRui6wsjYa4GyIz BHQwKRG9cZckXRijf1Qg QNIjW24rtWHqw4I2 IGNvbGxhcHNlOyBlbXB0 xM5lVKemeuubv3roybyn Pzy0hk86pZAhh2R8pAY5 F1GtrzD9VXSkkKTk HsufyQSQcJ7thygnh5az muyyOwBhJHWjQHp4HXv5 DXNrlHueKzAeEQ22AAP6 PDOzoxAaA0BgWHSo jJxoYuH7j6U5Bb8JO2RS ZcdpG3JETVCAERbchPF+ YL35gk25P6ZiRzxdYlx6 UJUfXEI9sMF7zE6k CFLcUKxsk3Q0zQM7T3Sj lbWfcm8za8boMIVxSCvn P42xuSPea9C0WQCizRO8 UOTvmAliZcZbcE79 Oyc+YTYhtSdew1IrXdib y2svk5zihUm5MibdHSEd kmSviKdsRUQ9w2NfKz2s HDRqkTB2oTM7zZ4g QwKmGoH5XWzoR696EiUh zPYwKswfE18jL9WcjZJ+ OEOuBfq3IIXhoZmuQU3c Q1PxJLDbmtopvNIl tAfvAM0aSXXnafbuPFMl zN3qTRNkS6n8IeKzIpT2 ABiiP7UqEFOeggkzNl86 cB4nCiCgDoU3USub L6KpheO4XBIgeAEtZDsf NHA1P76sw7M5WEVqMYFj LUX3gEN1cT0upPqbjtnv bGVmdDsgdmVydGlj CYdmLRprB690RZIyuQrs PkNvZGluZyBEYXRlOiAg MTEvMTUvMjAyNDwvdGQ+ RNBiNTK5lXdaASVn cEJgAAldSe1mzQgghMup VU4oEQJodfomACQfbJ9v OZJexCWymCmjGC5aWJNi tqoha620DlXtKAQ6 NITgsWLrK2ZdnS0dPtAh LGUcXQQuW1NjvCTlGFta Y439AEdnLjH1NZItahFo H3DqWCMuoAmoFnE5 g1S3Wv1Xo3KpvqlcF7Km hAFaNhOkJralIOy9M6Fy PjwvdHI+SO80KPEeIN15 NIl4WEQ2cVtcLSjq XKRcQ5TknP6aQsCeELFd ZGRkOyc+PHRhYmxlIHdp ZHRoPScxMDAlJyBzdHls HU0eTz4lGGIlLVXx zCdejNRzBbNqp1gdDPNl KHrgON9gwAojX4CwhWZ3 MSYqs5u4Rz72J97gP6Yc dXA+DRBqvKH5aMW6 kP8yRlHdJtJ1NMokM042 HcYtwDPeSkffe8rif1rj iOw6CqJ1PSSpzrFltEfi CFW2d3TwXw42V62o IHdpZHRoPSIxNSUiIHZh yUwgqk6scB8fDx7+PGNv jDF0zOI7mD0xCeMcXcI9 PGfuY923UmQlgSBj Nsuje3ats1zuhWh0YtLe PKHtfbIyzAawBJU3k9Dh Az25D6MrwKwsf6HoVef2 fz74yMMdl6J1oUF3 G1LpVUPbbixlrTCdjKun CA1tSAXjarzgOBUwiM1j ZKCvT1r1OuFhLxN0ZOti X0CvvaJ5WNPswYZg UANebQHRhD6qlaalh7dk atqiCxJjYHZfEQq4MId3 MGGqiZaxDgXwOEX9KoM3 QIO1gKRurG1iyPsj sedtvR8fHxd+MQA3uLCp fOSEQY8sXtuakJK+PHRk AQX7uLivILvjFWRlcP7f GGKoF1k2HqToZjH2 QYqyE1JjaoG2IMKktZJh QJXdbLBLfD8zveogt0im tyznGoJnZKRoRDy7ASc9 LWFsaWduOiBsZWZ0 NnF5VWL3aAMfwO6dyEmf uxnfqY8aMlv+QmlydGgg IJO7WQp4K0BkLwv3SHGh pIthQU9lwZNsVRsb Vn0fxHkbnBqqOD6dIVJn ctdyv008MbQft2ksSVIz mKNdIVulTWP7G46rd5M2 TGLiRIAoFDF8qMF9 yM3stVjdbqrmuOPpwNed hmGdkBlqJTeyOCinX804 JHUhkCvsJyHxZYt0V4Ip Fnz0YZLuhJveXL9c zZYcMQaeBt3rwLgxpJip LQ9nFFTglaals202SaIz n7gpIBGncEPzXCzgOIF6 J61vh8U7GXZpSCMb SVP9yRL0hG1gfNstcuwu bGVmdDsgdmVydGljYWwt BKozQ455OWWjlJyjEbBg iAe4H9VaPdb3IESj jNupXV0afCEjQJttZt0j uBzmmTdmPP8fXGOicdaw o290QxCac6xpHXMqvXHr CGqbION2E87bb5R5 ERPvDKIlNAJ9cOG1wB1g bGlnbjogbGVmdDsgdmVy vTppZZwzVPuhR539HMMa cDsnPlBhdGllbnQg YTgkQCb0W5StRwqqqPN+ JL79MJKjMQ86qCQuaKGw y4ldqTy8LoDgPXMlZQH0 oBtuYCimu4MeCVUl Y00heSBoy0T8EGRvfEot ePWtDtPezJD6jI0dLHvd axwaf1bfjglgSbqfy5nt hq97eV15G41lOWhh ZHRoPSIzMCUiIHZhbGln rr6pqD5oOt2+PGNvbCB3 zDK7pE7rRVCqLkG0RDuc L538QfMdzFXrXees z4pvi0lszRi3QfA8NSOb plDbuNvpCFX8m0SoVl50 M86iTQaaRQSqTTCzGQAd UIDvjScirq1gzG4s Ii8+KQCmcOK7iXM5cB1p VrSdOdG3PHivA221PkJq bVIaJkbrJ34gG2NioWG+ QLZvPxz8ZAZwbJwv AY9geIFtWGijVq2kXXH7 LwOeXtIiLOtoI7GrHDPr yskkwjisuAS2PDSbXMRm fY19Fo6wlCceADKt qRTJsD0pzkkyz8iasgls VmPtZXUgWLf0UMj0THKj bLrtXkIbZST1SbW5YQS0 wIMhcN6eoRlhenqr bL0sK0UwUJHjdohdJe98 kE4dGhHmLwK9SEnvTxu+ WF6gFCITFGHLOG6UEXSM NWMSREy1F2AwVgb2 OAQweBkvEC8bfZAxLDgh Is1znCemlKgeOA0cDQNm pgwnISYifP0rWEXhiLHa zBrnTS9gUBHbwxhu g400AwGbWAT0TTObjYFv M8TooU2nGmFhTPHwMRXa X9HvpTDsWHyiS770ZYmd HzP3ASOeyuAeS0Ea UOIwpZqhNwK3e1F9Cu1m Hi7jVS5bYIglOX31DI65 jSKqh1E3nCT3I2YyGZKj dnahmitcnFE8FCBr XOMozD07wCRfLZcrDl6h w0S2w603RKHcMGFivY51 Qp2vlIciYXTbxCOPfP5v xpqlb6wkciusYzHz UGFgFHp2JLj7XIPdxHzs HfWzTGW2OmS2UVO7uBKb oO0daZzcxtoebA8lXsj+ IqGrFOVvofL0A0Lh Uif1JREtrAgvQL2njMOb EMfjWf2qtUxdsYvfEG9x EIPcibgxUNVctT5yYLYa yJFnuRfoFY6xYEMl nnlhd644ChOmXAV0PLFj kNQzO8GmqN5mEkCeMGTi XRGaY5YtjPQmCAecU363 CBupGpM7LZTbfuHy L9RcVHPzrAwsVcE5z7A3 Vk5YAK8EGYY9T5AzOoa4 BVRdnJjsKM3hlCHwVVyc Kj3dvCvlsXmrXS6p IDWidgkwYXNnoG8yDDSx pCSsiUkgWA7bMOWrhego d786QzQlMGI0IVIybEHf X4CmuX6lDwJdKYQh JIObS1YqxQXwXHccT423 FXtaEiL5RXMkdrRkL0Gv MLTkcHyfSbZ4i6S5Hv1I UDwvdGQ+PD86bo89 L6JwQrdtVpk9GUBtDDB6 aPS0yS7yNVYmSXxrr0H8 eBQ2V8GfbvMexo0tv7pj RBQmXDhnW64auRIp i0K9JAPyrZL2DNCvdEro NbSfqD57Nsk+PGNvbGdy j4YgGzmet2nuw8nlgEx0 IjMwJSIgdmFsaWdu HRS1n4YlZm59U29gFLsq ZHRoPSIzMCUiIHZhbGln ph5skV4cZv9+PGNvbCB3 rDV9uB4jVtKmUlH8 IMtpU570CcOorCUkTvmj o5jbq5ezaBx4IyTmFQBv dmWxiIblAZC0b7NvEr73 Y2SxhNxmh5OlHsq2 gi77vFKyi3H2rEE9W1Zb YIRewfdmiFFxbBkxKK3z OMNnlsktUJCxoU3xGUVe S2j6RvIdNaR6CRsn N4DvvsI9FBZdiVVqXWQk uGCMvD9mxznjo0vrsnay YyVqYPWhNKx4SKk3JGPw xEsqRyJjGYT8QpE3 ITU2tBFyaM0jgGcitkhl hR5eDuu+SGr6f2rvkODs DV2nyIQ7DW49YC11hLMi k2I5kGI9M7YjUJFi fthqfwlubXE3VSTbBJWm tR77Sh8vmCudXc4rSYFo LZY2DTHalOWqZ6LjuB4s MpVsEQRfDINqZ5Yg mEOmHHxhU595YNlkTuV9 JYJopcUrG2NaURRacLng CtH1j8Z4Ga4DTD73NY19 XL77xCAji8I9gNH2 J8KaVEEbxjvxjstgoZC9 OHEpUPJyqU36Tz2zcQwy Us1mFSUmTVV2LDSmbRHn T5BxoS3zJwKaEFXw SAOrA9FitASkFWurD294 CAkyCrR3COXnjeEtR6Df XDVziOndIyU7x9J9El9J Wz19FT28OT11pDNt v3Z1sIX7J9QkESReiqqk capivCX6TOGvMZHrzE42 Hq2taAtgNi8mVOHsWMJ9 JMScvDHiX2UuwK4a YgAeXEWaBZSwJ7OtuXBw ZMcoR693IQzcHjU6KPSm czBdY9PtKDLkbUooIuH1 d1Z1Yl1ZOBylapb4 P9ZdDyyhmZE+XU65KDYf HU49sIVfcXWsc8jyuUc9 IcOaANAgMID6eCvcYJzr d3WbZDRlH79wrOPl c2U (more content not included)... Normal [facility] ED Clinical Summaryon 2023 ED Clinical Summary [facility] ? Urgent Care [address] [place] [id number] Clinical Summary PERSON INFORMATION Name: ANITA OCHOA Age: 33 Years Sex: FEMALE : 1990 MRN: Acct#: Visit Reason: Finger laceration; LT INDEX FINGER LAC Arrival: 03/31/2024 09:14:32 Discharge: 03/31/2024 10:05:00 LOS: 000 00:51 Check In: 03/31/2024 09:14:32 Checkout: 03/31/2024 10:05:00 Address: [address] [place] [id number] PCP: Provider, None PROVIDER INFORMATION Provider Role Assigned Unassigned Prema Herrmann DATA SCIENCE AND IOT MANAGER Nurse 03/31/2024 09:22:11 03/31/2024 09:23:40 Dante Godfrey INTELLIGENCE DIRECTOR ED PA 03/31/2024 09:23:07 03/31/2024 09:29:08 Rigo Ray PA-C ED PA 03/31/2024 09:28:24 Trish Monte MA ED Nurse 03/31/2024 09:29:48 VITALS INFORMATION Vital Sign Triage Latest Temperature Tympanic Temperature Temporal Artery Pulse Rate O2 Sat 99 % 99 % Respiratory Rate Blood Pressure /64 mmHg /64 mmHg MEDICAL INFORMATION Medications Given: Medication Dose Route tetanus/diphth/pertu ss (Tdap) adult/adol 0.5 mL Intramuscular Allergy Information: CeleXA PHYSICIAN DOCUMENTATION DISCHARGE INFORMATION: Discharge Disposition: Home Discharge Location: Home PATIENT EDUCATION INFORMATION Instructions: Sutures, Meldrim, or Adhesive Wound Closure, Vgeq-zc-Rckc Follow-Up: With: Address: When: Return to this practice , only if needed DIAGNOSIS: Laceration of left index finger Patient Understands: Yes - Patient/family/careg iver verbalizes understanding of instructions given Comment: Normal [facility] ED Patient Summaryon 024 ED Patient Summary [facility] ? Urgent Care [address] [place] [address] PATIENT DISCHARGE INSTRUCTIONS Patient Information Name: ANITA OCHOA Age: 33 Years Date of : 1990 Reason For Visit: Finger laceration; LT INDEX FINGER LAC Arrival Time: 03/31/2024 09:14:32 Primary Care Physician: Provider, None Attending Physician: Dante Godfrey CNP Comment: Patient Education With: Address: When: Return to this practice , only if needed Sutures, Richard, or Adhesive Wound Closure Doctors use stitches (sutures), richard, skin glue (tissue adhesive), and skin tape (adhesive strips) to hold your skin together while it heals (wound closure). What your doctor will use depends on your wound. Your doctor also may use more than one way to close your wound. In most cases, your wound will be closed right away (primary skin closure). Sometimes, it may be closed later so that it can be cleaned and then heal on its own (delayed wound closure). What are the types of wound closure? Skin glue ? To use skin glue, your doctor will: ? Hold the edges of the wound together. ? [place] the glue onto your skin. You may need more than one layer. ? Cover your wound with a bandage (dressing) after the glue is dry. ? Skin glue may be used for: ? Small wounds that are not deep (superficial wounds). ? Wounds on the face. ? Children's wounds. ? Skin glue is not used inside of wounds, or on wounds that are: ? Deep. ? Uneven. ? Bleeding. ? Some benefits of skin glue are: ? It leaves nothing that needs to be taken off. ? You do not need medicine to numb the area. ? You have less pain than with other types of closure. Skin tape Skin tape is: ? Made of paper that is sticky (adhesive) and has many small holes in it. ? Placed across your wound edges like a normal bandage. ? Used to close very shallow wounds. ? Sometimes used with sutures to help improve closure. Sutures Sutures come in many different materials, strengths, and sizes. Some sutures break down as your wound heals (absorbable). Other sutures need to be taken out (nonabsorbable). To use sutures, your doctor will: ? Sew your skin together with sutures and a needle. ? Use one long stitch or separate stitches. ? Tie and cut the sutures at the end. Sutures can be used for all types of wounds, including under the skin. They can cause a skin reaction that can lead to infection. Meldrim Richard are often used to close cuts from surgery (incisions). To use richard, your doctor will: ? Hold the edges of your wound close together. ? Place a staple across the wound. ? Use a tool to secure the staple to the skin. ? Repeat this with as many richard as needed. Meldrim are faster to use than sutures, and they cause less reaction from your skin. Meldrim need to be taken out using a tool that bends the richard away from your skin. Follow these instructions at home: Medicines ? Take uutj-olm-tooyrix and prescription medicines only as told by your doctor. ? If you were prescribed an antibiotic medicine, take it as told by your doctor. Do not stop taking it even if you start to feel better. Wound care ? Follow instructions from your doctor about how to take care of your wound and bandage. ? Wash your hands with soap and water for at least 20 seconds before and after touching your wound or bandage. If you cannot use soap and water, use hand rental coordinator. ? Do not try to take off or take out your wound closures unless your doctor tells you to do that. You may need a follow-up visit for your doctor to take out your closures. ? Closures may stay in place for 2 weeks or longer. ? Absorbable sutures may break down after a few days or weeks. ? If skin tape edges start to loosen and curl up, you may trim the loose edges. ? Do not pick at your wound. Picking can cause an infection or cause your wound to open up again. ? Apply ointments or creams only as told by your doctor. ? Check your wound every day for signs of infection. Check for: ? Redness, swelling, or pain. ? Fluid or blood. ? New warmth, a rash, or hardness at the wound site. ? Pus or a bad smell. General instructions ? Do not take baths, swim, or use a hot tub. Ask your doctor about taking showers or sponge baths. ? Do not soak your wound in water. ? Eat foods that include protein, vitamin A, and vitamin C. These nutrients help your wound heal. ? Drink enough fluid to keep your pee (urine) pale yellow. ? Keep all follow-up visits. Contact a doctor if: ? You have a fever or chills. ? You have redness, swelling, or pain around your wound. ? You have fluid or blood coming from your wound. ? You have new warmth, a rash, or hardness around your wound. ? You see that your wound becomes thick, raised, and darker in color after your sutures come out (scarring). Get help right away i (more content not included)... [facility] Urgent Care Note- Provideron 03-31-2024 Urgent Care Note- Provider Patient: ANITA OCHOA Age: 33 years Sex: FEMALE : 1990 Associated Diagnoses: Laceration of left index finger Author: Rigo Ray PA-C Basic Information Additional information: Chief Complaint from Nursing Triage Note : Chief Complaint 03/31/2024 9:31 EST Chief Complaint Medical screening [facility] . 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 Diagnosis: Laceration left index finger. This is a 33 year old here today report a work related injury. 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 Bleeding is controlled. Last tetanus is unknown. There is still good range of motion and no numbness, tingling or weakness. She denies any pain. There is a laceration. No other skin rashes or lesions. No fevers, chills or malaise. No joint pains or myalgias. There are no other associated symptoms. Nothing makes the symptoms better or worse. Symptoms are described as sudden onset, moderate in nature and persisting. Health Status Allergies: Allergic Reactions (Selected) Mild CeleXA- No reactions were documented.. Past Medical/ Family/ Social History Medical history: No active or resolved past medical history items have been selected or recorded.. Surgical history: No active procedure history items have been selected or recorded.. Family history: No family history items have been selected or recorded.. Social history: Social & Psychosocial Habits Substance Use 03/31/2024 Substance use: Never Tobacco 03/31/2024 Smoking tobacco use: Never tobacco user Electronic Cigarette/Vaping 03/31/2024 Electronic Cigarette Use: Never . Problem list: No qualifying data available . Physical Examination Vital Signs Vital Signs 03/31/2024 9:31 EST Temperature Oral 36.6 DegC Apical Heart Rate 83 bpm Respiratory Rate 18 br/min Systolic Blood Pressure 122 mmHg HI Diastolic Blood Pressure 64 mmHg SpO2 99 % BP Method Automatic . Measurements 03/31/2024 9:31 EST Height 175.26 cm Weight 90.72 kg Weight Dosing 90.720 kg Body Mass Index Measured 29.54 kg/m2 BSA Measured 2.1 m2 . GENERAL: Awake, alert and oriented to person, place and situation. Well nourished, well developed, non toxic, NAD. EXTREMITIES: No bony TTP, no cyanosis, clubbing or edema. Good muscle tone, full ROM without difficulty. Brisk cap refill distally, radial pulses 2+ bilaterally. SKIN: Flap like shallow laceration over the PIP of the left index finger, bleeding controlled, otherwise normal inspection, no visualized rash. NEUROLOGIC: Light touch sensation in tact, strength 5/5 in bilateral upper extremities. Normal mentation. No focal neurological deficits appreciated. Medical Decision Making Orders Launch Orders Patient Care: Brace/Splint ED (Order): 03/31/2024 9:37 EST, Lane tape Pharmacy: tetanus/diphth/pertu ss (Tdap) adult/adol (Order): 0.5 mL, Intramuscular, Once. Tetanus is updated. Home with wound care instructions. Clean and dry today. Wash with soap and water after today. Do not soak the wound for 10 days. Glue can be peeled off if it is still in tact after 10 days. Return immediately with signs of infection, including increasing redness, pain or warmth or purulent drainage. Return with new, or worsening symptoms, or symptoms failing to improve as expected and the patient voiced their understanding. Questions answered. Follow-up here only as needed. HR at [facility] is contacted with an update via secure e-mail. Procedure PROCEDURE NOTE: The affected area is cleansed with normal saline and not anesthetized. The wound is irrigated and explored. No foreign body is identified. It is cleansed with Betasept. Surgical glue and steri strips are used to cover the wound. No dressing. The patient tolerated the procedure well without complication. Lane taping is used for her to protect the finger for return to work. Impression and Plan Diagnosis Laceration of left index finger ([id number] S61.211A, Discharge, Medical) Plan Condition: Stable. Disposition: Discharged: Time 03/31/2024 09:47:00, to home. Patient was given the following educational materials: Sutures, Richard, or Adhesive Wound Closure, [id number], Sutures, Richard, or Adhesive Wound Closure, [id number]. Follow up with: ; Return to this practice , only if needed. Counseled: Patient, Regarding diagnosis, Regarding treatment plan, Patient indicated understanding of instructions. [Electronically Signed on: 03/31/2024 10:54 EST] Rigo Ray PA-C [Verified on: 03/31/2024 10:54 EST] Rigo Ray PA-C Normal [facility] [address]24 Urgent Care Record [facility] ? Urgent Care [address] [id number] PATIENT DISCHARGE INSTRUCTIONS Patient Information Name: ANITA OCHOA Age: 33 Years Date of : 1990 Reason For Visit: Finger laceration; LT INDEX FINGER LAC Arrival Time: 03/31/2024 09:14:32 Primary Care Physician: Provider, None Attending Physician: Dante Godfrey CNP Comment: Visit Diagnosis: Diagnoses This Visit Finger laceration ([id number]) Laceration of left index finger (S61.211A) If you received any narcotics, sedation, or any other medication that causes drowsiness for the next 24 hours, unless otherwise directed: ? Do not drive a car. ? Do not operate machinery such as power tools, lawn mowers, drills, sewing machines, or stoves ? Avoid alcoholic beverages and drugs for allergies, nerves, or sleep ? Do not make important personal or business decisions or sign any legal documents With: Address: When: Return to this practice , only if needed Medication Information: The exam and treatment you received today in the [facility] were for an urgent problem and are not intended as complete care. It is important for you to follow up with a doctor, nurse practitioner, or physician?s occupational therapist assistant for ongoing care. If your symptoms become worse or you do not improve as expected and you are unable to reach your usual health care provider, you should return to the Emergency Department, we are available 24 hours a day. For those patients who have received Radiology results, the interpretation of your X-ray as given to you by our Urgent Care physician is only a preliminary report. The Radiologist will review your films and if there is a change in the diagnosis you will be notified by phone. Please make sure you have provided a working phone number so we can reach you if necessary. In the event that you had a lab culture while you were a patient in the Urgent Care, you will be notified by phone if there is a need to change your antibiotic. Please make sure you have provided a working phone number so we can reach you if necessary. [facility] has provided you with a complete list of medications post discharge. Please inform your car hop/provider of your visit and for further instruction on these medications. Any specific questions regarding your chronic medications and dosages should be discussed with your primary care physician(s) and/or pharmacist. Visit Information Allergies: Substance Reaction Symptoms Type Comments CeleXA Drug Vital Signs: Vitals and Measurements this Visit (last charted value for your 03/31/2024 visit) Vital Signs This Visit Temperature Oral: 36.6 DegC Apical Heart Rate: 83 bpm Respiratory Rate: 18 br/min Systolic Blood Pressure: 122 mmHg Diastolic Blood Pressure: 64 mmHg SpO2: 99 % Blood Pressure Method: Automatic Measurements This Visit Height/Length Measured: 175.26 cm Weight Measured: 90.72 kg Weight Dosin.720 kg Body Mass Index: 29.54 kg/m2 BSA Measured: 2.1 m2 Problems List: Problem Onset Comments No Problems found Patient Education Sutures, Meldrim, or Adhesive Wound Closure Doctors use stitches (sutures), richard, skin glue (tissue adhesive), and skin tape (adhesive strips) to hold your skin together while it heals (wound closure). What your doctor will use depends on your wound. Your doctor also may use more than one way to close your wound. In most cases, your wound will be closed right away (primary skin closure). Sometimes, it may be closed later so that it can be cleaned and then heal on its own (delayed wound closure). What are the types of wound closure? Skin glue ? To use skin glue, your doctor will: ? Hold the edges of the wound together. ? [place] the glue onto your skin. You may need more than one layer. ? Cover your wound with a bandage (dressing) after the glue is dry. ? Skin glue may be used for: ? Small wounds that are not deep (superficial wounds). ? Wounds on the face. ? Children's wounds. ? Skin glue is not used inside of wounds, or on wounds that are: ? Deep. ? Uneven. ? Bleeding. ? Some benefits of skin glue are: ? It leaves nothing that needs to be taken off. ? You do not need medicine to numb the area. ? You have less pain than with other types of closure. Skin tape Skin tape is: ? Made of paper that is sticky (adhesive) and has many small holes in it. ? Placed across your wound edges like a normal bandage. ? Used to close very shallow wounds. ? Sometimes used with sutures to help improve closure. Sutures Sutures come in many different materials, strengths, and sizes. Some sutures break down as your wound heals (absorbable). Other sutures need to be taken out (nonabsorbable). To use sutures, your doctor will: ? Sew your skin together with sutures and a needle. ? Use one long stitch or (more content not included)... Normal [facility] IGP,APTIMA HPV,AGE GDLNon AGE GDLN ACOG TESTING Note . [facility] Comment on above: TESTS RESULT FLAG UN ITS REF RANGE LAB Clinician Provided Cytology Information Source.............Cervix;Endocervix No. of containers..01 ThinPrep Vial Age Algo ACOG Angela... 30-65 01 FLAG LEGEND: L-Low Normal,H-High Normal,LL-Alert Low,HH-Alert High <-Panic Low,>-Panic High,A-Abnormal,AA-Critical Abnormal Performed at: 01 =G [facility] [place] [address] Lala Byrd MD, HPV APTIMA Negative Negative [facility] Comment on above: This nucleic acid am plification test detects fourteen high- risk HPV types (16,18,31,33,35,39,45,51,52,56,58,59,66,68) without differentiation. Performed at: = - [address] [id number] Biomedical Repair Technician: Lala Byrd MD, Phone: [phone] Performed at: - [address], [place] [id number] Biomedical Repair Technician: Lala Byrd MD, Phone: [phone] IGP, APTIMA HPV, RFX 16/18,45 Note . [facility] Comment on above: TESTS RESULT FLAG UN ITS REF RANGE LAB DIAGNOSIS: 02 NEGATIVE FOR INTRAEPITHELIAL LESION OR MALIGNANCY. Specimen adequacy: 02 Satisfactory for evaluation. Endocervical and/or squamous metaplastic cells (endocervical component) are present. Performed by: Laci Bustillos, Appeals Representative (ASCP) . 02 Note: Note 02 The Pap smear is a screening test designed to aid in the detection of premalignant and malignant conditions of the uterine cervix. It is not a diagnostic procedure and should not be used as the sole means of detecting cervical cancer. Both false-positive and false-negative reports do occur. Test Methodology: Note 02 This liquid based ThinPrep(R) pap test was screened with the use of an image guided system. HPV Genotype Reflex Note 02 Criteria not met, HPV Genotype not performed. FLAG LEGEND: L-Low Normal,H-High Normal,LL-Alert Low,HH-Alert High <-Panic Low,>-Panic High,A-Abnormal,AA-Critical Abnormal Performed at: [address] [facility] [address] [address] Lala Byrd MD, BRUSH-SPATULA CERVIX ENDOCERVIX [facility] Urinalysis macro (dipstick) panel (U)on 06-30-2023 Bilirubin, UA Negative Negative - 4(70) +++ mg/dL [facility] Blood, UA Negative Negative - 50 Comso/mcL [facility] Clarity, UA Clear [facility] Color, UA Yellow [facility] Glucose, UA Negative Negative - 1999(110) ++++ mg/dL [facility] Interpretation and review of laboratory results Normal [facility] Ketones, UA Negative Negative - 160(16) ++++ mg/dL [facility] Leukocytes, UA Negative Negative - 500+++ Erin/mcL [facility] Nitrite, UA Negative Negative - Positive [facility] pH, UA 5.5 5 - 9 [facility] [employer] [facility] Protein, UA Negative Negative - 1999(20) ++++ mg/dL [facility] Spec Grav, UA 1.020 1 - 1.03 [facility] Urobilinogen, UA 1.0 0.2 - 12 mg/dL [facility] Glucose 1 Hr post dose gluco se [Mass/Vol]on 05-03-2023 1ST HR GTT 176 mg/dL High 120-170 [facility] Comment on above: Performed By: #### 2 0438-8 #### [facility] ([id number]) [address], [address] [place] [address] Glucose 2 Hr post 100 g gluc ose PO [Mass/Vol]on 05-03-2023 2ND HR GTT 100GM LOAD 137 mg/dL Normal 70-139 [facility] Comment on above: Result Comment: Fourth International Workshop Conference: Recommendations and Rationale for Screening and Diagnosis of Gestational Diabetes Mellitus 2 or more of the following must be met or exceeded for a positive diagnosis. FASTING >=95mg/dL 1hr post 100g load >=180mg/dL 2hr post 100g load >=155mg/dL 3hr post 100g load >=140mg/dL Performed By: #### 1 514-9 #### [facility] ([id number]) [address], [address] [place] [address] Glucose 3 Hr post dose gluco se [Mass/Vol]on 05-03-2023 3RD HR GTT 102 mg/dL High 65-99 [facility] Comment on above: Performed By: #### 2 0437-0 #### [facility] ([id number]) [address] [place] [address] Glucose post fast [Mass/Vol] on 05-03-2023 FASTING GTT 83 mg/dL Normal 65-99 [facility] Comment on above: Performed By: #### 1 558-6 #### [facility] ([id number]) [address], [address] [place] [address] [employer] 05-07-2021 S. pyogenes Org specific cx Ql (Throat) Negative [employer] Other [facility] 10-26-2018 Send Out Report FORWARD TO [facility] Comment on above: Performed By: #### C MIS #### [employer] [place], [place] [id number] Biomedical Repair Technician: Rod Mott MD [facility] 10-25-2018 Test Name BusbudYL KIT Normal [facility] Comment on above: Performed By: #### C MIS #### [employer] [place] [address] Biomedical Repair Technician: Rod Mott MD ABO AND RH TYPEon 10-05-2018 ABO and Rh group Nom (Bld) ABO Rh Typing A Rh Positive Normal [facility] Comment on above: Performed By: #### A JORGE #### [facility] [address] [place] [address] Jaswant Libia CBC AUTO DIFFon 10-05-2018 Basophils (Bld) [#/Vol] 0.0 103/ul Normal 0.0-0.1 [facility] Comment on above: Performed By: #### C BC #### [facility] [address] [place] [address] Jaswant Libia Basophils/100 WBC (Bld) 0.3 % Normal 0.2-2.0 [facility] Comment on above: Performed By: #### C BC #### [facility] [address] [place] [address] Jaswant Libia Eosinophils (Bld) [#/Vol] 0.2 103/ul Normal 0.0-0.7 [facility] Comment on above: Performed By: #### C BC #### [facility] [address] [place] [address] Jaswant Libia Eosinophils/100 WBC (Bld) 1.8 % Normal 0.9-7.0 [facility] Comment on above: Performed By: #### C BC #### [facility] [address] [place] [address] Jaswant Libia Erythrocyte distribution width (RBC) [Ratio] 12.2 % Normal 11.0-15.0 [facility] Comment on above: Performed By: #### C BC #### [facility] [address] [place] [address] Jaswant Libia Hematocrit (Bld) [Volume fraction] 35.7 % Critically low 36.0-48.0 [facility] Comment on above: Performed By: #### C BC #### [facility] [address] [place] [address] Jaswant Libia Hemoglobin (Bld) [Mass/Vol] 12.2 g/dL Normal 12.0-16.0 [facility] Comment on above: Performed By: #### C BC #### [facility] [address] [phone] Jaswant Libia IG # 0.05 10e3/ul Critically high 0.00-0.03 [facility] Comment on above: Performed By: #### C BC #### [facility] [address] [phone] Jaswant Libia IG % 0.5 % Normal 0.0-0.5 [facility] Comment on above: Performed By: #### C BC #### [facility] [address] [phone] Jaswant Libia Lymphocytes (Bld) [#/Vol] 2.9 103/ul Normal 1.2-3.8 [facility] Comment on above: Performed By: #### C BC #### [facility] [address] [place], [place] [phone] Jaswant Libia Lymphocytes/100 WBC (Bld) 27.6 % Normal 20.5-60.0 [facility] Comment on above: Performed By: #### C BC #### [facility] [address] [place], [place] [phone] Jaswant Libia MANUAL DIFF REQ NO Normal [facility] Comment on above: Performed By: #### C BC #### [facility] [address] [place], [place] [phone] Jaswant Libia MCH (RBC) [Entitic mass] 30.0 pg Normal 26.7-34.0 [facility] Comment on above: Performed By: #### C BC #### [facility] [address] [place], [place] [phone] Jaswant Libia MCHC (RBC) [Mass/Vol] 34.2 g/dL Normal 29.9-35.2 [facility] Comment on above: Performed By: #### C BC #### [facility] [address] [place], [place] [phone] Jaswant Libia MCV (RBC) [Entitic vol] 87.7 fL Normal 81.0-99.0 [facility] Comment on above: Performed By: #### C BC #### [facility] [address] [place], [place] [address] Jaswant Libia Monocytes (Bld) [#/Vol] 0.9 103/ul Critically high 0.3-0.8 [facility] Comment on above: Performed By: #### C BC #### [facility] [address] [place], [place] [address] Jaswant Libia Monocytes/100 WBC (Bld) 8.2 % Normal 1.7-12.0 [facility] Comment on above: Performed By: #### C BC #### [facility] [address] [place], [place] [address] Jaswant Libia Neutrophils (Bld) [#/Vol] 6.5 103/ul Normal 1.4-6.5 [facility] Comment on above: Performed By: #### C BC #### [facility] [address] [place] [address] Jaswant Libia Neutrophils/100 WBC (Bld) 61.6 % Normal 43.0-75.0 [facility] Comment on above: Performed By: #### C BC #### [facility] [address] [place] [address] Jaswant Libia Platelet mean volume (Bld) [Entitic vol] 10.2 fL Normal 9.5-13.5 [facility] Comment on above: Performed By: #### C BC #### [facility] [address] [place] [address] Jaswant Libia Platelets (Bld) [#/Vol] 315 103/ul Normal 150-450 [facility] Comment on above: Performed By: #### C BC #### [facility] [address] [place], [place] [address] Jaswant Libia RBC (Bld) [#/Vol] 4.07 106/ul Critically low 4.20-5.40 [facility] Comment on above: Performed By: #### C BC #### [facility] [address] [place], [place] [address] Jaswant Libia WBC (Bld) [#/Vol] 10.5 103/ul Normal 4.0-11.0 [facility] Comment on above: Performed By: #### C BC #### [facility] [address] [place] [address] Jaswant Libia ER URINE PROFILEon 9 Bilirubin [Mass/Vol] Negative Normal NEGATIVE [facility] Comment on above: Performed By: #### E RUR #### [facility] [address] [place] [address] Jaswant Libia BLOOD Negative Normal NEGATIVE [facility] Comment on above: Performed By: #### E RUR #### [facility] [address] [place] [address] Jaswant Libia Clarity (U) CLEAR Normal [facility] Comment on above: Performed By: #### E RUR #### [facility] [address] [place] [address] Jaswant Libia Color (U) LT. YELLOW Normal YELLOW [facility] Comment on above: Performed By: #### E RUR #### [facility] [address] [place] [address] Jaswant Libia ERUAHD A micrscopic examination will be performed if indicated. Normal [facility] Comment on above: Performed By: #### E RUR #### [facility] [address] [place] [address] Jaswant Libia Glucose [Mass/Vol] Negative Normal NEGATIVE [facility] Comment on above: Performed By: #### E RUR #### [facility] [address] [place] [address] Jaswant Libia Ketones Ql (U) Negative Normal NEGATIVE [facility] Comment on above: Performed By: #### E RUR #### [facility] [address] [place] [address] Jaswant Libia Nitrite Ql (U) Negative Normal NEGATIVE [facility] Comment on above: Performed By: #### E RUR #### [facility] [address] [place] [address] Jaswant Libia pH (Bld) 5.5 Normal 5-9 [facility] Comment on above: Performed By: #### E RUR #### [facility] [address] [place] [address] Jaswant Reza Protein (U) [Mass/Vol] Negative Normal [facility] Comment on above: Performed By: #### E RUR #### [facility] [address] [place] [address] Jaswant Reza SPEC GRAVITY 1.010 Normal 1.005-<=1.025 [facility] Comment on above: Performed By: #### E RUR #### [facility] [address] [place] [address] Jaswant Reza UR MICRO IND NOT INDICATED Normal [facility] Comment on above: Performed By: #### E RUR #### [facility] [address] [place] [address] Jaswant Reza Urobilinogen Qn (U) 0.2 EU/dl Normal [facility] Comment on above: Performed By: #### E RUR #### [facility] [address] [place] [address] Jaswant Reza WBC (Bld) [#/Vol] Negative Normal NEGATIVE [facility] Comment on above: Performed By: #### E RUR #### [facility] [address] [place], [place] [phone] Jaswant Reza PREG QUANT HCGon 10-05-2018 HCG QUANT 82578.00 mIU/mL Normal [facility] Comment on above: Result Comment: VERI FIED BY DILUTION Performed By: #### P REGQNT #### [facility] [address] [place] [address] Jaswant Reza HCG RANGE SEE BELOW Normal [facility] Comment on above: Result Comment: 5-50 0-1 WEEK 40-300 1-2 WEEKS 100-1,000 2-3 WEEKS 500-6,000 3-4 WEEKS 5,000-200,000 1-2 MONTHS 10,000-100,000 2-3 MONTHS 3,000-50,000 2ND TRIMESTER 1,000-50,000 3RD TRIMESTER Performed By: #### P REGQNT #### [facility] [address] [place] [address] Jaswant Libia PROF CHEM 8 (BAS METB)on Anion gap [Moles/Vol] 13.8 mmol/L Normal [facility] Comment on above: Performed By: #### B MP #### [facility] [address] [address] Jaswant Libia Calcium [Mass/Vol] 9.5 mg/dL Normal 8.4-10.2 [facility] Comment on above: Performed By: #### B MP #### [facility] [address] [address] Jaswant Libia Chloride [Moles/Vol] 102 mmol/L Normal 98-107 [facility] Comment on above: Performed By: #### B MP #### [facility] [address] [place] [address] Jaswant Libia CO2 [Moles/Vol] 23.9 mmol/L Normal 22.0-30.0 [facility] Comment on above: Performed By: #### B MP #### [facility] [address] [address] Jaswant Libia Creatinine [Mass/Vol] 0.45 mg/dL Critically low 0.52-1.04 [facility] Comment on above: Performed By: #### B MP #### [facility] [address] [place] [address] Jaswant Libia EGFR-AF [place] CITIZ[place] >60 Normal >=60 [facility] Comment on above: Performed By: #### B MP #### [facility] [address] [address] Jaswant Libia EGFR-NON AF [place] CITIZ[place] >60 Normal >=60 [facility] Comment on above: Performed By: #### B MP #### [facility] [address] [address] Jaswant Libia Glucose [Mass/Vol] 78 mg/dL Normal 74-106 [facility] Comment on above: Performed By: #### B MP #### [facility] [address] [address] Jaswant Libia Potassium [Moles/Vol] 3.7 mmol/L Normal 3.4-5.0 [facility] Comment on above: Performed By: #### B MP #### [facility] [address] [place], [place] [address] Jaswant Libia Sodium [Moles/Vol] 136 mmol/L Critically low 137-145 [facility] Comment on above: Performed By: #### B MP #### [facility] [address] [place], [place] [address] Jaswant Libia Urea nitrogen [Mass/Vol] 5.0 mg/dL Critically low 7.0-17.0 [facility] Comment on above: Performed By: #### B MP #### [facility] [address] [phone] Jaswant Libia Urea nitrogen/Creatinine [Mass ratio] 11.1 mg/mg Normal [facility] Comment on above: Performed By: #### B MP #### [facility] [facility] [address] [place], [place] [address] Jaswantreyna Wolfeen US PREG PLACENTAon 9 US PREG PLACENTA Patient: ANITA OCHOA Exam Date: 10/05/2018 : 1990 Gender:F Ordering : DR. MARYANN DALY M.D. Admission #: [id number] Family : Order #: [id number] CLICK HERE TO VIEW EXAM RADIOLOGY REPORT [...] Rose M.D. on 10/05/2018 at 21:25 Normal [facility] Vital Signs Date Time Vital Sign Value Performing Clinician Facility 01-13-2024 11:30-0400 Body height 165.1 cm Melina [place] PA Work Phone: [facility] 01-13-2024 11:30-0400 Body mass index (BMI) [Ratio] 35.01 kg/m2 Melina Tavera PA Work Phone: [facility] 01-13-2024 11:30-0400 Body weight 95.44 kg Melina Tavera PA Work Phone: [facility] 01-13-2024 11:30-0400 Diastolic blood pressure 60 mm[Hg] Melina Tavera PA Work Phone: [facility] 01-13-2024 11:30-0400 Systolic blood pressure 110 mm[Hg] Melina Tavera PA Work Phone: [facility] 06-30-2023 10:23-0500 Body mass index (BMI) [Ratio] 39.27 kg/m2 Karan Darian DO Work Phone: [facility] 06-30-2023 10:23-0500 Body weight 103.78 kg Karan Darian DO Work Phone: [facility] 06-30-2023 10:23-0500 Diastolic blood pressure 76 mm[Hg] Karan Darian DO Work Phone: [facility] 06-30-2023 10:23-0500 Systolic blood pressure 116 mm[Hg] Karan Darian DO Work Phone: [facility] 11-08-2022 12:15-0400 Body height 167.64 cm Cristal Mandel Other [employer] Other 11-08-2022 12:15-0400 Body mass index (BMI) [Ratio] 30.02 kg/m2 Cristal Mandel Other [employer] Other 11-08-2022 12:15-0400 Body temperature 98.3 [degF] Cristal Mandel Other [employer] Other 11-08-2022 12:15-0400 Body weight 84.37 kg Cristal Grovermond Other [employer] Other 11-08-2022 12:15-0400 Respiratory rate 18 /min Cristal Tequila Other [employer] Other 11-08-2022 12:15-0400 SaO2% (BldA) [Mass fraction] 99 % Cristal Tequila Other [employer] Other 05-07-2021 13:30-0500 Body height 167.64 cm Cristal Tequila Other [employer] Other 05-07-2021 13:30-0500 Body mass index (BMI) [Ratio] 29.05 kg/m2 Cristal Tequila Other [employer] Other 05-07-2021 13:30-0500 Body temperature 97.9 [degF] Cristal Tequila Other [employer] Other 05-07-2021 13:30-0500 Body weight 81.65 kg Cristal Grovermond Other [employer] Other 05-07-2021 13:30-0500 Respiratory rate 18 /min Cristal Tequila Other [employer] Other 05-07-2021 13:30-0500 SaO2% (BldA) [Mass fraction] 99 % Cristal Tequila Other [employer] Other Encounters Encounter Date Encounter Type Care Provider Facility Start: 03-31-2024 End: 03-31-2024 ambulatory ROSENDA-Marychuy Godfrey Facility:[facility] Start: 01-13-2024 End: 01-13-2024 Bamboo flowsheet Melina JORGE Work Phone: [facility] Start: 01-13-2024 End: 01-19-2024 Bamboo flowsheet Melina JORGE Work Phone: [facility] Start: 01-13-2024 End: 01-19-2024 Clinisync Result Encounter Melina JORGE Work Phone: [facility] External Department Unsolicited Start: 01-13-2024 End: 01-13-2024 Patient encounter procedure Melina JORGE Work Phone: [facility] Work Phone: Start: 01-13-2024 End: 01-13-2024 Periodic preventive med est patient 18-39 yrs Melina JORGE Work Phone: [facility] Comment on above: Well woman exam with routine gynecological exam; Encounter for routine checking of intrauterine contraceptive device (IUD); Constipation, unspecified constipation type Start: 12-22-2023 End: 12-22-2023 Telephone encounter Flor Ro [facility] Physician s Obstetrics/Gynecology Start: 11-24-2023 End: 11-24-2023 Refill Elizabeth GOODSON Work Phone: [facility] [place] Start: 10-21-2023 End: 10-21-2023 ambulatory KARAN DARIAN Not Available Start: 09-20-2023 End: 09-20-2023 ambulatory MELINA TAVERA Not Available Start: 07-29-2023 End: 07-29-2023 ambulatory [facility] Start: 07-28-2023 End: 07-28-2023 ambulatory KARAN DARIAN Not Available Start: 07-21-2023 End: 07-21-2023 ambulatory KARAN DARIAN Not Available Start: 07-14-2023 End: 07-14-2023 ambulatory MELINA TAVERA Not Available Start: 06-30-2023 End: 06-30-2023 flow sheet Karan Darian DO Work Phone: [facility] Comment on above: Third trimester preg prince Start: 06-30-2023 End: 06-30-2023 ambulatory KARAN DARIAN Not Available Start: 06-24-2023 End: 06-24-2023 ambulatory ELDON Jessa [facility] Start: 06-18-2023 Refill Elizabeth Rodriguez POLICE WORKER-INTELLIGENCE DIRECTOR Work Phone: [facility] [place] Comment on above: Constipation during in first trimester Start: 06-14-2023 End: 06-14-2023 ambulatory MELINA TAVERA Not Available Start: 05-31-2023 End: 05-31-2023 ambulatory KARAN DARIAN Not Available Start: 05-27-2023 End: 05-27-2023 Office outpatient visit 15 minutes David Novak MD Work Phone: [facility] Comment on above: Polyhydramnios affec ting in third trimester (Primary Dx) Start: 05-27-2023 End: 05-27-2023 ambulatory DAVIDLUIS CARLOS NOVAK [facility] Start: 05-03-2023 End: 05-04-2023 ambulatory [facility] Start: 11-08-2022 End: 11-08-2022 ambulatory Cristal Mandel Other [employer] Other Start: 11-08-2022 Office outpatient vi sit 15 minutes Cristal Mandel [facility] Start: 05-07-2021 (URG) Urgent Care Visit Cristal bermudez [facility] Start: 05-07-2021 End: 05-07-2021 ambulatory Crisatl Mandel Other [employer] Other Start: 10-25-2018 End: 10-26-2018 [facility] Start: 10-05-2018 End: 10-06-2018 Patient encounter procedure NONE LISTED REQUEST Facility: Start: 04-20-2018 End: 04-20-2018 [facility] Start: 03-24-2018 End: 03-24-2018 Patient encounter procedure NONE LISTED REQUEST Facility:[facility]1 Procedures Date Procedure Procedure Detail Performing Clinician Start: 01-13-2024 IGP,APTIMA HPV,AGE GDLN Melina JORGE Work Phone: Start: 06-30-2023 Urnls dip stick/tabl et rgnt non-auto w/o micrscp Karan Farmer DO Work Phone: Start: 12-26-2021 Microscopic observat ion [Identifier] in Cervix by Cyto stain David Novak MD Work Phone: Start: 10-25-2018 Unlisted chemistry procedure RENETTA ALTMAN Plan of Treatment Date Care Activity Detail Author Start: 11-08-2032 DTaP,Tdap and Td Vaccines (8 - Td or Tdap) DTaP,Tdap and Td Vaccines (8 - Td or Tdap) [facility] Start: 01-22-2025 End: 01-22-2025 Patient encounter procedure 01/22/2025 11:00 AM EDT Office Visit [facility] [address] [place] [address] Karan Farmer DO [address] [place], [place] [id number] [facility] Start: 12-26-2024 Screening for malign ant neoplasm of cervix Pap Smear [facility] Start: 04-29-2024 Adult BMI Screening Adult BMI Screen ing [facility] Start: 04-29-2024 Tobacco Screening Tobacco Screening [facility] Start: 01-16-2024 Influenza vaccination Influenza Vacc ine [facility] Start: 01-13-2024 End: 01-13-2024 Patient encounter procedure 01/13/2024 11:00 AM EDT Office Visit [facility] [address] [place] [address] Melina Tavera PA [address] [place], [place] [id number] Arrived [facility] Comment on above: Arrived Start: 07-14-2023 End: 07-14-2023 Patient encounter procedure 07/14/2023 8:50 AM EST Routine [facility] [address] [place] [id number] Melina Tavera PA [address] [place] [address] [facility] Start: 06-24-2023 End: 06-24-2023 Patient encounter procedure 06/24/2023 2:15 PM EST Appointment [facility] [address] [facility] [address] [place] [id number] [facility] Start: 01-15-2023 COVID-19 Vaccine ( season) COVID-19 Vaccine () [facility] Start: 01-15-2023 Influenza vaccination Influenza Vacc ine [facility] Start: 12-26-2022 Adult BMI Follow Up Plan Adult BMI Follow Up Plan [facility] Start: 2004 Depression Screening Depression Scre ening [facility] Start: 1992 Tobacco Counseling Tobacco Counselin g [facility] Cytology Cervical or vaginal smear or scraping study Pap Smear Pathology and Cytology Routine Well woman exam with routine gynecological exam Ordered: 01/13/2024 [facility] Work Phone: Comment on above: Ordered: 01/13/2024 Human papilloma viru s DNA [Presence] in Unspecified specimen by Probe with amplification HPV DNA probe, amplified Microbiology Routine Well woman exam with routine gynecological exam Ordered: 01/13/2024 [facility] Comment on above: Ordered: 01/13/2024 Immunizations Immunization Date Immunization Notes Care Provider Jefferson lechuga 11-08-2022 tetanus toxoid, reduced diphtheria toxoid, and acellular pertussis vaccine, adsorbed Cristal Tequila Other [employer] Other 01-04-2021 influenza virus vaccine, unspecified formulation David Novak MD Work Phone: [employer] NEGATED: Highlighted row has not occurred!03-07-2019 varicella virus vaccine David Novak MD Work Phone: [employer] [facility] Comment on above: Deferred: Other - im mune Payers Date Payer Category Payer Medicaid [id number] 2022 Medicaid [id number] 2. [id number] 2021 Unknown [id number] 2021 Unknown [id number] 1990 Unknown [id number] 2.16.8 40.1.832542.3.579.2.175 1990 Unknown [id number] 2.16.84 0.1.498112.3.579.2.593 1990 Unknown [id number] 2.16.84 0.1.329739.3.579.2.593 1990 Unknown [id number] 2.16.840 .1.850373.3.579.2.1286 1990 Unknown [id number] 2.16.8 40.1.058487.3.579.2.1286 1990 Unknown [id number] 2.16.8 40.1.164257.3.579.2.1286 1990 Unknown [id number] 2.16.84 0.1.854067.3.579.2.1286 1992 Unknown [id number] 2.16.84 0.1.304149.3.579.2.1286 1992 Unknown [id number] 2.16.84 0.1.238415.3.579.2.1259 1992 Unknown [id number] 2.16.84 0.1.753737.3.579.2.1259 1992 Unknown [id number] 2.16.84 0.1.412406.3.579.2.9 1990 Unknown [id number] 2.16.84 0.1.861870.3.579.2.9 1990 Unknown [id number] 2.16.84 0.1.671963.3.579.2.9 1990 Unknown [id number] 2.16.84 0.1.227614.3.579.2.9 1992 Unknown [id number] 2.16.84 0.1.029756.3.579.2.9 1990 Unknown [id number] 2.16.84 0.1.107660.3.579.2.9 1990 Unknown [id number] 2.16.8 40.1.537897.3.579.2.718 1957 Self-pay [id number] 1957 Unknown [id number] Unknown [id number] 2.1 [id number] Social History Date Type Detail Facility Unknown if ever smoked [employer] Other Start: 06-27-2020 End: 10-21-2023 Sex Assigned At [employer] Other Tobacco smoking stat [facility] Tobacco smoking consumption unknown [facility] Start[facility] Start: 1990 Sex Assigned At Not on file [facility] Start: 05-26-2022 End: 10-21-2023 Tobacco smoking status ILIS Smokes tobacco daily [facility] Start: 06-27-2020 End: 10-21-2023 [facility] Start: 10-21-2023 Tobacco Comment Vape [facility] Start: 1990 Sex assigned at Female [facility] Start: 07-13-2023 Gender identity Identifies as female gender (finding) [facility] History of tobacco use Tobacco U se Types Packs/Day Years Used Date Smoking Tobacco: Every Day Vaping/E-cigarettes Smokeless Tobacco: Never [facility] [employer] [facility] Start: 05-26-2022 Tobacco use and exposure Smokeless tobacco non-user [facility] [employer] [facility] Start: 04-29-2023 End: 11-04-2023 Alcohol intake Ex-drinker (finding) [facility] [employer] Housing Instability Unknown [facility] Start: 05-29-2022 Alcohol Comment occasional [facility] Clinical Notes 11-08-2022 to 03-31-2024 ANIA Garcia - 01/13/2024 11:00 AM EDTTelephone Encounter - Floralban Ro - 12/22/2023 11:40 AM EDTTelephone Encounter - CINDY Dailey CNP - 12/22/2023 11:40 AM EDT Note Date & Type Note Facility 03-31-2024 Note Patient Education Ma terials Follows: Sutures, Richard, or Adhesive Wound Closure Doctors use stitches (sutures), richard, skin glue (tissue adhesive), and skin tape (adhesive strips) to hold your skin together while it heals (wound closure). What your doctor will use depends on your wound. Your doctor also may use more than one way to close your wound. In most cases, your wound will be closed right away (primary skin closure). Sometimes, it may be closed later so that it can be cleaned and then heal on its own (delayed wound closure). What are the types of wound closure? Skin glue ? To use skin glue, your doctor will: ? Hold the edges of the wound together. ? [place] the glue onto your skin. You may need more than one layer. ? Cover your wound with a bandage (dressing) after the glue is dry. ? Skin glue may be used for: ? Small wounds that are not deep (superficial wounds). ? Wounds on the face. ? Children's wounds. ? Skin glue is not used inside of wounds, or on wounds that are: ? Deep. ? Uneven. ? Bleeding. ? Some benefits of skin glue are: ? It leaves nothing that needs to be taken off. ? You do not need medicine to numb the area. ? You have less pain than with other types of closure. Skin tape Skin tape is: ? Made of paper that is sticky (adhesive) and has many small holes in it. ? Placed across your wound edges like a normal bandage. ? Used to close very shallow wounds. ? Sometimes used with sutures to help improve closure. Sutures Sutures come in many different materials, strengths, and sizes. Some sutures break down as your wound heals (absorbable). Other sutures need to be taken out (nonabsorbable). To use sutures, your doctor will: ? Sew your skin together with sutures and a needle. ? Use one long stitch or separate stitches. ? Tie and cut the sutures at the end. Sutures can be used for all types of wounds, including under the skin. They can cause a skin reaction that can lead to infection. Richard Richard are often used to close cuts from surgery (incisions). To use richard, your doctor will: ? Hold the edges of your wound close together. ? Place a staple across the wound. ? Use a tool to secure the staple to the skin. ? Repeat this with as many richard as needed. Meldrim are faster to use than sutures, and they cause less reaction from your skin. Meldrim need to be taken out using a tool that bends the richard away from your skin. Follow these instructions at home: Medicines ? Take yjac-nyb-utclnoz and prescription medicines only as told by your doctor. ? If you were prescribed an antibiotic medicine, take it as told by your doctor. Do not stop taking it even if you start to feel better. Wound care ? Follow instructions from your doctor about how to take care of your wound and bandage. ? Wash your hands with soap and water for at least 20 seconds before and after touching your wound or bandage. If you cannot use soap and water, use hand rental coordinator. ? Do not try to take off or take out your wound closures unless your doctor tells you to do that. You may need a follow-up visit for your doctor to take out your closures. ? Closures may stay in place for 2 weeks or longer. ? Absorbable sutures may break down after a few days or weeks. ? If skin tape edges start to loosen and curl up, you may trim the loose edges. ? Do not pick at your wound. Picking can cause an infection or cause your wound to open up again. ? Apply ointments or creams only as told by your doctor. ? Check your wound every day for signs of infection. Check for: ? Redness, swelling, or pain. ? Fluid or blood. ? New warmth, a rash, or hardness at the wound site. ? Pus or a bad smell. General instructions ? Do not take baths, swim, or use a hot tub. Ask your doctor about taking showers or sponge baths. ? Do not soak your wound in water. ? Eat foods that include protein, vitamin A, and vitamin C. These nutrients help your wound heal. ? Drink enough fluid to keep your pee (urine) pale yellow. ? Keep all follow-up visits. Contact a doctor if: ? You have a fever or chills. ? You have redness, swelling, or pain around your wound. ? You have fluid or blood coming from your wound. ? You have new warmth, a rash, or hardness around your wound. ? You see that your wound becomes thick, raised, and darker in color after your sutures come out (scarring). Get help right away if: ? The edges of your wound start to separate. ? Your wound opens up again. ? You notice pus or a bad smell coming from your wound. Summary ? What your doctor uses to hold your skin together while it heals (wound closure) depends on your wound. ? Your doctor may use stitches (sutures), richard, skin glue (tissue adhesive), or skin tape (adhesive strips). ? Do not try to take off or take out your wound closures unless your doctor tells you to do that. ? Do not soak your wound in water. (more content not included)... [facility] 01-13-2024 History of Presen t illness Narrative Reason for Appointment: Patient ID: Anita Ochoa is a 33 y.o. female who presents for Well Women Visit and Contraception (String check) Patient presents today for Annual Exam. MEDICATIONS Current Outpatient Medications Medication Instructions acetaminophen (TYLENOL) 500 mg, Oral, Every 6 hours PRN cholecalciferol (Vitamin D-3) 50 MCG (1999) tablet Oral, Daily RT DSS 100 mg, Oral, 2 times daily PRN omega-3 acid ethyl esters (LOVAZA) 2 g, Oral, 2 times daily Prenat w/o U-ON-Cdzyojk-FA-DHA (WesCap-PN DHA) 27-0.6-0.4-300 MG capsule 1 capsule, Oral, Daily valACYclovir (VALTREX) 500 mg, Oral, Daily RT ALLERGIES Allergies Allergen Reactions Celexa [Citalopram] Hives and Rash Whole body hives PROBLEMS Active Ambulatory Problems Diagnosis Date Noted No Active Ambulatory Problems Resolved Ambulatory Problems Diagnosis Date Noted No Resolved Ambulatory Problems Past Medical History: Diagnosis Date Broken nose 2007 Herpes simplex 05/17/2013 HISTORY PAST MEDICAL HISTORY SOCIAL HISTORY Past Medical History: Diagnosis Date Broken nose 2007 had surgery Herpes simplex 05/17/2013 Social History Tobacco Use Smoking status: Every Day Smokeless tobacco: Not on file Tobacco comments: Vape Substance Use Topics Alcohol use: Not on file Drug use: Not on file FAMILY HISTORY Family History Problem Relation Name Age of Onset Asthma Brother Yan Ovarian cancer Maternal Grandmother Leroy Breast cancer Maternal Grandmother Leroy Breast cancer Paternal Grandmother Grandma Cancer Paternal Grandfather Efra SURGICAL HISTORY Past Surgical History: Procedure Laterality Date NASAL SINUS SURGERY TONSILLECTOMY 2012 REVIEW OF SYSTEMS Review of Systems: Review of Systems All other systems reviewed and are negative. OBJECTIVE Objective: Physical Exam Constitutional: Appearance: Normal appearance. She is well-developed. Genitourinary: Vulva normal. Right Adnexa: not tender and no mass present. Left Adnexa: not tender and no mass present. No cervical discharge. IUD strings visualized. Breasts: Breasts are soft. Right: Normal. Left: Normal. HENT: Head: Normocephalic. Nose: Nose normal. Mouth/Throat: Mouth: Mucous membranes are moist. Cardiovascular: Rate and Rhythm: Normal rate and regular rhythm. Pulmonary: Effort: Pulmonary effort is normal. Breath sounds: Normal breath sounds. Abdominal: General: Bowel sounds are normal. There is no distension. Palpations: Abdomen is soft. Tenderness: There is no abdominal tenderness. There is no guarding or rebound. Musculoskeletal: General: No swelling. Normal range of motion. Cervical back: Normal range of motion. Right lower leg: No edema. Left lower leg: No edema. Neurological: General: No focal deficit present. Mental Status: She is alert and oriented to person, place, and time. Skin: General: Skin is warm and dry. Psychiatric: Mood and Affect: Mood normal. Behavior: Behavior normal. Vitals and nursing note reviewed. Exam conducted with a ball racker present. Vitals: Estimated body mass index is 35.01 kg/m as calculated from the following: Height as of this encounter: 5' 5 . Weight as of this encounter: 210 lb 6.4 oz. BP: 110/60 No LMP recorded. ASSESSMENT & PLAN ICD-10-CM 1. Well woman exam with routine gynecological exam Z01.419 Pap Smear HPV DNA probe, amplified 2. Encounter for routine checking of intrauterine contraceptive device (IUD) Z30.431 3. Constipation, unspecified constipation type K59.00 Docusate Sodium (DSS) 100 MG capsule Annual Exam: Patient presents today for an annual exam. Patient states she is doing well and has no complaints. Pap was obtained without difficulty. Patient complaints of constipation and hair loss. Patient is currently and aware that hair loss maybe due to hormones. Patient recently restarted her PNV. Orders Placed This Encounter Procedures HPV DNA probe, amplified Follow Up: Patient is to return in one year for annual unless needed otherwise. Documented by Vivien Luna LPN on behalf of: ANIA Garcia documented in this encounter [facility] 12-22-2023 Miscellaneous Notes Formattin g of this note might be different from the original. Patient called requesting refills on her valtrex & vitamin. Patient pharmacy information has been updated. Please advise. Thank you. It looks like patient transferred to Dr. Farmer back in May 2023. Please have her follow up with him or schedule an appointment with us if she desires to transfer care back to us. Thank you. Called and unable to lvm for pt Pt called back and informed her of this information. She states she did transfer to [facility] and will call his office. CAMERON Eugene, RN documented in this encounter [facility] 12-22-2023 Telephone encount er Note Patient called requesting refills on her valtrex & vitamin. Patient pharmacy information has been updated. Please advise. Thank you. [facility] 12-22-2023 Telephone encount er Note It looks like patient transferred to Dr. Farmer back in May 2023. Please have her follow up with him or schedule an appointment with us if she desires to transfer care back to us. Thank you. [facility] 12-22-2023 Telephone encount er Note Called and unable to lvm for pt [facility] 12-22-2023 Telephone encount er Note Pt called back and informed her of this information. She states she did transfer to [facility] and will call his office. CAMERON Eugene, RN [facility] 06-30-2023 History of Presen t illness Narrative [...] nursing note reviewed. Exam conducted with a ball racker present. Vitals: Estimated body mass index is [...] week for routine OB appointment. Documented by Lbiia Isaac LPN on behalf of: DO Brittany Padillaally signed by Libia Isaac LPN at 07/01/2023 1:09 PM EST documented in this encounter [facility] 05-27-2023 History of Presen t illness Narrative REASON FOR TELEMEDICINE VIDEO OFFICE VISIT: Polyhydramnios resolved. HISTORY OF PRESENT ILLNESS: Anita Ochoa is a pleasant 32 y.o. G 3 P1 011 at 29w0d due on Estimated Date of Delivery: 08/12/23 . 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 Marcy will be tested in the screening 2. Polyhydramnios that was seen earlier has resolved. Normal amniotic fluid index normal interval growth. Currently the patient has no complaints. The patient denies nausea, vomiting, abdominal pain, vaginal bleeding, SOB or chest pain. Patient Active Problem List Diagnosis History of illicit drug use HSV (herpes simplex virus) anogenital infection Depression Cystic fibrosis carrier Hx of one miscarriage Hx of delivery by vacuum extraction, currently Vapes nicotine containing substance Rubella non-immune status, antepartum Abnormal GTT (glucose tolerance test) Constipation during Polyhydramnios affecting in third trimester ALLERGIES: Allergies Allergen Reactions Citalopram Hives Whole body hives CURRENT MEDICATIONS: Current Outpatient Medications: acetaminophen (TYLENOL EXTRA STRENGTH) 500 mg tablet, Take 1 tablet (500 mg total) by mouth every 6 (six) hours as needed for pain., Disp: , Rfl: acidophilus-pectin, citrus 25 million cell -100 mg tablet, Take by mouth 3 (three) times a day with meals., Disp: , Rfl: cetirizine (ZyrTEC) 10 mg tablet, Take 1 tablet (10 mg total) by mouth in the morning., Disp: , Rfl: cholecalciferol, vitamin D3, 2,000 units tablet, Take by mouth daily., Disp: , Rfl: docusate sodium (COLACE) 100 mg capsule, Take 1 capsule (100 mg total) by mouth 2 (two) times a day as needed for constipation., Disp: 60 capsule, Rfl: 1 omega-3 acid ethyl esters (LOVAZA) 1 gram capsule, Take 2 capsules (2 g total) by mouth in the morning and 2 capsules (2 g total) before bedtime., Disp: , Rfl: valACYclovir (VALTREX) 500 mg tablet, take 1 tablet by mouth every morning, Disp: 90 tablet, Rfl: 3 WESCAP-PN DHA 27 mg iron-1 mg -300 mg capsule, Take 1 capsule by mouth in the morning., Disp: , Rfl: Past Medical History: Diagnosis Date Depression REVIEW OF SYSTEMS: Head and Neck: Negative for any dizziness and headaches. Cardiovascular and Respiratory System: Denies any chest pain, shortness of breath, and coughing. Abdominal and System: Denies any abdominal pain, nausea, vomiting, vaginal bleeding, and vaginal discharge REVIEW OF ULTRASOUND. Pertinent Ultrasound findings are see report. PHYSICAL EXAMINATION: LMP 10/16/2022 . Gravid abdomen, Respirations not labored. Normal gait well oriented in time place and person. RECOMMENDATION: 1. Ultrasounds every 4 weeks at our [place] office. 2. Term spontaneous vaginal delivery at local hospital is anticipated with C section reserve for routine obstetrical indications. 3. Patient does not have any future MD appointment scheduled with us. Thank you for allowing me to participate in [facility]. If there are any questions, please do not hesitate to call me. Sincerely, DAVID NOVAK MD Video Visit via Real-time Synchronous Audiovisual Provider Location: [facility] MATER[facility]- MEDICINE AT [address] [phone] Patient Location: Patient's home Patient Location [place]: None Video Visit Consent Statement: I discussed risks, benefits, and alternatives of a real-time synchronous audiovisual consultation with the patient (and any accompanying persons) including the risks that the patient's personal health details and medical records will be discussed over real-time, synchronous, interactive video/audio/telecommunication technology, the visit will not be recorded without the express consent of both the provider and the patient, and that there are some limitations compared to [id number] evaluations. We elected to proceed. documented in this encounter [facility] 11-08-2022 Evaluation note Encounter Date Diagnosis Assessment [...] right hand, initial encounter (ICD-10 - S61.451A) [employer] Other Evaluation noteNort Between Digital Other Evaluation note* Diagnosis Third trimester state, incidental [facility] Diagnosis Well woman exam with routine gynecological exam Routine gynecological examination Encounter for routine checking of intrauterine contraceptive device (IUD) Constipation, unspecified constipation type documented in this encounter [facility] HealthcareEvaluation note* Diagnosis Polyhydramnios affecting in third trimester- Primary [facility] this [facility] Diagnosis Constipation during in first trimester documented in this encounter [facility] N[facility]ative - [facility]ortedNofreeman [facility] system Between [employer] Other History general Narrative - Reported* Type Description Date Surgical History tonsillectomy [employer] Other InstructionsNot on filedocumented in this encounter [facility] filedocumented in this encounter [facility] on filedocumented in this encounter [facility] on filedocumented in this encounter [facility] Summary Purpose Family History No Family History Records FoundNo Family History Records FoundNo Family History Records FoundNo Family History Records FoundNo Family History Records FoundNo Family History Records FoundNo Family History Records Found Advance Directives Latest Code Status on File Code Status Date Activated Date Inactivated Comments Full Code 03/06/2019 7:33 PM 03/09/2019 6:30 AM Date Activated Date Inactivated Comments 03/06/2019 7:33 PM 03/09/2019 6:30 AM Additional Source Comments INFORMATION SOURCE (unrecogn ized section and content) DATE CREATED AUTHOR 04/26/2018 Anastasiya [facility] DATE CREATED AUTHOR AUTHOR'S ORGANIZ ATION 10/26/2018 [facility] DATE CREATED AUTHOR AUTHOR'S ORGANIZ ATION 12/25/2018 [facility] DATE CREATED AUTHOR AUTHOR'S ORGANIZ ATION 05/07/2023 [facility] DATE CREATED AUTHOR AUTHOR'S ORGANIZ ATION 07/30/2023 [facility] DATE CREATED AUTHOR AUTHOR'S ORGANIZ ATION 10/22/2023 [facility] EPIC DATE CREATED AUTHOR AUTHOR'S ORGANIZ ATION [facility]20[facility] REASON FOR VISIT (unrecogniz ed section and content) Reason Comments Routine Visit Reason Comments Well Women Visit Contraception String check Reason Comments Med Refill Care Teams (unrecognized sec tion and content) Legal Assistant Relationship Specialty Start Date End Date Eldon Ulrich PA-C [address] [place] [phone] PCP - General Physician Supervisor [employer] 01/04/21 Legal Assistant Relationship Specialty Start Date End Date Eldon Ulrich PA-C [address] [place] [phone] PCP - General Physician Supervisor [employer] 01/04/21 Legal Assistant Relationship Specialty Start Date End Date Eldon Ulrich PA-C [address] [place] [phone] PCP - General Physician Supervisor [employer] 01/04/21 Legal Assistant Relationship Specialty Start Date End Date Eldon Ulrich PA-C [address] [place] [phone] PCP - General Physician Supervisor [employer] 01/04/21 FOR RECORDS PERTAINING TO PATIENTS WHO ARE [...] BE BASED ON THE PRIMARY CLINICAL RECORDS. [facility] provides no warranty or guarantee of the accuracy or completeness of information in this document.
--- NOTE | 2024-12-03 12:55 | XR_ITS ---
The [place] [id number] Patient Name: ALECIA MONTANO MRN: [id number] date: 1990 Sex: F Assigned Patient Location: ER Current Patient Location: ER Accession/Order Number: [id number] Exam Date: 12/03/2024 13:31 Report Date: 12/03/2024 13:32 At the request of: ELIDIA HESS MD Procedure: XR thoracic spine 3V THORACIC SPINE - - 3 views CLINICAL HISTORY: pain COMPARISON: None FINDINGS: Thoracic vertebral heights maintained. Minimal dextrocurvature upper thoracic and minimal levocurvature thoracolumbar junction. Minimal anterior marginal endplate plate spurring mid to lower thoracic spine. XR/XR thoracic spine 3V IMPRESSION: NEGATIVE ACUTE COMPRESSION FRACTURE OR MALALIGNMENT. MINIMAL DEGENERATIVE CHANGES MID TO LOWER THORACIC SPINE Impression dictated by: Matthew Avendaño M.D. 12/03/2024 1:32 PM Dictation Location: [place] [address] Electronically authenticated by: [id number] Y Date: 12/03/2024 13:32
--- NOTE | 2024-12-03 12:56 | ECG_ITS ---
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 Measurements Intervals [place] Rate: 70 P: 60 NJ: 150 QRS: 37 QRSD: 88 T: 41 QT: 368 QTc: 389 Interpretive Statements 1100 Sinus rhythm 9110 normal ECG Compared to ECG 01/08/2017 18:48:32 No significant changes Electronically Signed On 12-03-2024 15:38:49 EDT by CHRISTIANO CALVERT M.D.
[2024-12-03] MEDS: 0.9 % SODIUM CHLORIDE 1,000 ML 1000 ML IV (13:13)
[2024-12-03 13:15] LABS: Hematocrit 37.2 % (36.0-48.0); Hemoglobin 12.9 g/dL (12.0-16.0); Immature Granulocytes Abs Auto 0.02 10^3/uL (0.00-0.03); Immature Granulocytes Pct Auto 0.2 % (0.0-0.5); Lymphocytes Absolute Auto 3.5 10^3/uL (1.2-3.8); Mean Corpuscular HGB Conc 34.7 g/dL (29.9-35.2); Mean Corpuscular Hemoglobin 31.9 pg (26.7-34.0); Mean Corpuscular Volume 91.9 fL (81.0-99.0); Platelet Count 301 10^3/uL (150-450); Red Blood Count 4.05 10^6/uL (4.20-5.40); White Blood Count 8.2 10^3/uL (4.0-11.0)
[2024-12-03 13:36] LABS: Alanine Aminotransferase 20 U/L (14-59); Albumin Globulin Ratio 1.0; Albumin Level 3.4 g/dL (3.4-5.0); Alkaline Phosphatase 65 U/L (46-116); Anion Gap 12.4; Aspartate Amino Transferase 12 U/L (15-37); Blood Urea Nitrogen 11.0 mg/dL (7.0-18.0); Calcium 8.9 mg/dL (8.5-10.1); Carbon Dioxide 30.3 mmol/L (21.0-32.0); Chloride 105 mmol/L (98-107); Estimated GFR (African America >60 (>=60 mL/min/1.73m^2); Estimated GFR (Non-African Ame >60 (>=60 mL/min/1.73m^2); Globulin 3.3 g/dL; Glucose 106 mg/dL (74-106); Potassium 3.7 mmol/L (3.5-5.1); Sodium 144 mmol/L (136-145); Total Protein 6.7 g/dL (6.4-8.2)
[2024-12-03 13:37] LABS: Magnesium 1.7 mg/dL (1.8-2.4)
--- NOTE | 2024-12-03 13:42 | ED.DIZZY1 ---
HPI - Dizziness General Chief Complaint: Dizziness Stated Complaint: DIZZINESS Time Seen by Provider: 12/03/24 12:47 History of Present Illness HPI Narrative: The patient a 34-year-old female is coming to the ER with EMS after she had an episode of dizziness after which she went to have a bowel movement in the bathroom at that when she felt that she is nauseous and going to pass out The patient did not pass out at any time and she does not have any complaint at the moment Patient has not been feeling sick lately but she has not been hydrating well The patient denies any preceding symptoms of chest pain or any fever or chills or any other concerns She mentioned that she have a 6-month-old at home and she has been taking care of her not able to get out of the house and stay in the hot weather Related Data Home Medications �Medication �Instructions �Recorded �Confirmed cetirizine 10 mg tablet 10 mg PO .Q24 08/05/23 08/05/23 docusate sodium 100 mg capsule 100 mg PO DAILY 08/05/23 08/05/23 multivitamin no.47-iron fum 27 1 cap PO DAILY 08/05/23 08/05/23 mg-folate no.1 1 mg-dha 300 mg capsule (WesCap-PN DHA) valacyclovir 500 mg tablet 500 mg PO DAILY 08/05/23 08/05/23 Allergies Allergy/AdvReac Type Severity Reaction Status Date / Time citalopram (From Celexa) Allergy Intermediate Hives Verified 12/03/24 12:41 Review of Systems ROS Status of ROS 10 or more systems reviewed and unremarkable except as noted in history and below [facility] Medical History (Updated 12/03/24 @ 14:23 by Iris Hoover MD) Genital herpes �A60.00 - Herpesviral infection of urogenital system, unspecified (ICD-10) Surgical History (Updated 08/05/23 @ 07:45 by Isabel Ramachandran) Hx of rhinoplasty �Z98.890 - Other specified postprocedural states (ICD-10) History of tonsillectomy �Z90.89 - Acquired absence of other organs (ICD-10) Social History Highest level of school completed/degree received: high school graduate Little interest or pleasure in doing things: not at all Feeling down, depressed, or hopeless: not at all Exam Narrative Exam Narrative: Nurses notes and vital signs reviewed and patient is not hypoxic. General: Well-appearing and in no apparent distress. Skin: Warm, dry, no pallor noted. No rash. Head: Normocephalic, atraumatic. Neck: Supple, non-tender. Eye: Pupils are equal, round and EOMI. No scleral icterus. Ears, Nose, Mouth, and Throat: TM are clear, no nasal mucosal hypertrop dry mucous membranes Cardiovascular: Regular Rate and Rhythm without murmur, gallop or rub. Respiratory: No accessory muscle use or respiratory distress. Lungs are clear to auscultation, no wheezing, rales or rhonchi Chest Wall: no tenderness Back: No midline thoracic or lumbar vertebral tenderness. No CVA tenderness Musculoskeletal: normal ROM, no calf or popliteal tenderness, no lower extremity edema/swelling GI: Abdomen is soft, non-distended. Normal bowel sounds. No masses appreciated. No tenderness to palpation. No rebound, guarding, or rigidity noted. Neurological: A&O x4. No cranial nerve dysfunction observed. No truncal ataxia. Moves all extremities. Sensation intact. Psychiatric: Cooperative and interactive. Normal mood and affect. Constitutional Vital Signs, click to edit/add: Last Vital Signs Temp 98.3 F 12/03/24 12:42 Pulse 69 12/03/24 14:38 Resp 16 12/03/24 14:38 BP 120/80 12/03/24 14:38 Pulse Ox 99 12/03/24 14:38 O2 Del Method Room Air 12/03/24 14:38 Course Vital Signs Vital signs: Vital Signs Temperature 98.3 F 12/03/24 12:42 Pulse Rate 74 12/03/24 12:42 Respiratory Rate 16 12/03/24 12:42 Blood Pressure 123/69 12/03/24 12:42 Pulse Oximetry 99 12/03/24 12:42 Oxygen Delivery Method Room Air 12/03/24 12:42 Temperature 98.3 F 12/03/24 12:42 Pulse Rate 69 12/03/24 14:38 Respiratory Rate 16 12/03/24 14:38 Blood Pressure 120/80 12/03/24 14:38 Pulse Oximetry 99 12/03/24 14:38 Oxygen Delivery Method Room Air 12/03/24 14:38 MDM - Dizziness MDM Narrative Medical decision making narrative: The patient EKG showing sinus rhythm with a heart rate of [address] elevation or depression The patient presentation could be secondary to dizziness from dehydration although her symptoms are nonspecific although the nausea that she had was she having bowel movement could be secondary to vasovagal Right now the patient is feeling much better she was provided with IV fluid and was able to ambulate here with no difficulty and no dizziness Chemistry was within normal except for mild hypomagnesemia that the patient was provided p.o. magnesium for her and she was instructed about increasing oral intake of magnesium rich foods The patient is to follow up with primary care physician in next 2-3 days or to return to the emergency department should any of the signs or symptoms worsen or new symptoms develop. The patient agrees with the following Diagnosis and Treatment plan and the patient will be discharged home. Lab Data Labs: Lab Results 12/03/24 Range/Units 13:01 WBC 8.2 (4.0-11.0) 10^3/uL RBC 4.05 L (4.20-5.40) 10^6/uL Hgb 12.9 (12.0-16.0) g/dL Hct 37.2 (36.0-48.0) % MCV 91.9 (81.0-99.0) fL MCH 31.9 (26.7-34.0) pg MCHC 34.7 (29.9-35.2) g/dL RDW 12.6 (11.0-15.0) % Plt Count 301 (150-450) 10^3/uL MPV 10.0 (9.5-13.5) fL Neut % (Auto) 44.5 (43.0-75.0) % Lymph % (Auto) 42.8 (20.5-60.0) % Trinity % (Auto) 8.6 (1.7-12.0) % Eos % (Auto) 2.8 (0.9-7.0) % Baso % (Auto) 1.1 (0.2-2.0) % Neut # (Auto) 3.6 (1.4-6.5) 10^3/uL Lymph # (Auto) 3.5 (1.2-3.8) 10^3/uL Trinity # (Auto) 0.7 (0.3-0.8) 10^3/uL Eos # (Auto) 0.2 (0.0-0.7) 10^3/uL Baso # (Auto) 0.1 (0.0-0.1) 10^3/uL Abs Immat Gran (auto) 0.02 (0.00-0.03) 10^3/uL Imm/Tot Granulo (auto) 0.2 (0.0-0.5) % Sodium 144 (136-145) mmol/L Potassium 3.7 (3.5-5.1) mmol/L Chloride 105 (98-107) mmol/L Carbon Dioxide 30.3 (21.0-32.0) mmol/L Anion Gap 12.4 BUN 11.0 (7.0-18.0) mg/dL Creatinine 0.56 (0.55-1.02) mg/dL Est GFR ( Amer) >60 (>=60 mL/min/1.73m^2) Est GFR (Non-Af Amer) >60 (>=60 mL/min/1.73m^2) BUN/Creatinine Ratio 19.6 Glucose 106 (74-106) mg/dL Calcium 8.9 (8.5-10.1) mg/dL Magnesium 1.7 L (1.8-2.4) mg/dL Total Bilirubin 0.3 (0.2-1.0) mg/dL AST 12 L (15-37) U/L ALT 20 (14-59) U/L Alkaline Phosphatase 65 (46-116) U/L Troponin I High Sens <4.0 L (4.0-51.3) pg/mL Total Protein 6.7 (6.4-8.2) g/dL Albumin 3.4 (3.4-5.0) g/dL Globulin 3.3 g/dL Albumin/Globulin Ratio 1.0 Serum HCG, Qual Negative (NEGATIVE) Discharge Plan Discharge Chief Complaint: Dizziness Clinical Impression: Dizziness, Hypomagnesemia Patient Disposition: Home, Self-Care Time of Disposition Decision: 14:22 Condition: Good Mode of Transportation: Private Vehicle Prescriptions / Home Meds: No Action cetirizine 10 mg tablet 10 mg PO .Q24 valacyclovir 500 mg tablet 500 mg PO DAILY docusate sodium 100 mg capsule 100 mg PO DAILY WesCap-PN DHA 27 mg iron-1 mg -300 mg capsule 1 cap PO DAILY Print Language: Mosotho Instructions: Hypomagnesemia (ED), Lightheadedness (ED), Dizziness (ED) Referrals: Physician,Non-Staff, MD [Primary Care Provider] - 1 week Discharge Date/Time: 12/03/24 14:40
[2024-12-03] MEDS: MAGNESIUM OXIDE 400 MG TABLET PO (14:05)
== END 2024-12-03 14:40 | disposition home or self-care (01) ==
PROVIDERS: Emergency Provider Emergency Medicine
DX: R42 Dizziness and giddiness (principal); E83.42 Hypomagnesemia
CPT/HCPCS: 36415; 72072; 80053; 83735; 84484; 84703; 85025; 93005; 99285

== ENCOUNTER 2025-03-06 18:11 | Outpatient (REF) | payer BC, SELFPAY ==
--- OUTSIDE RECORDS SUMMARY | 2024-07-03 06:00 | XMS_ITS ---
Author Organization [facility] vices Address [address] [place] [phone] Care Team Providers Care Automation Tester Name Role Phone Elo Reeder Primary Care Provider [phone] Rhett Toma Lopez Unavailable [phone] REASON FOR VISIT Rest #3,#6 Social History Sex Assigned At : Social History Observation Description Sex Assigned At Female Encounters Encounter Location Date Provider Diagnosis [facility] [address] [place], [place] [id number] 07/03/2024 Toma Lopez Plan Of Treatment No Information Progress Notes * Anita OCHOA HDOB: 3 (34 yo F)Acc No.[id number]:07/03/2024 Patient:?Anita OCHOA Laith :?Toma Lopez DMDDOB:1990???Age:33 Y ???Sex:FemaleDate:07/03/2024Phone:[phone]:[id number]:Elo Reeder Subjective: * Chief Complaints: * 1 . Rest #3,#6. * Medical History: Objective: * Vitals: Assessment: Plan: * Treatment: * Billing Information: * Visit Code: * Procedure Codes: * Electronic signature of Toma Lopez DMD on 03/06/2025 at 02:58 PM EDTSign off status: Pending * Provider: Aysha Lopez DMD Date: 0 07/03/2024 Generated for Printing/Faxing/eTransmitting on:?03/06/2025 02:58 PM EDT
--- OUTSIDE RECORDS SUMMARY | 2024-12-19 09:45 | XMS_ITS ---
Author Organization [facility] vices Address [address] [place] [phone] Care Team Providers Care Fagot Heater Name Role Phone Elo Reeder Primary Care Provider REASON FOR VISIT STRIPER Dizziness, fainting symptoms Social History Sex Assigned At : Social History Observation Description Sex Assigned At Female Encounters Encounter Location Date Provider Diagnosis [address] [phone] 12/19/2024 Elo Reeder Plan Of Treatment No Information Progress Notes * Anita OCHOA HDOB: 3 (34 yo F)Acc No.[id number]:12/19/2024 Medical Note Patient: Anita GOULD :?Elo Reeder APRN, FNP-CDOB:1990???Age: 34 Y???Sex:FemaleDate:12/19/2024Phone:[phone]:[address] [place], [place] [phone] Subjective: * Chief Complaints: * 1 . STRIPER Dizziness, fainting symptoms. * Medical History: Objective: * Vitals: Assessment: Plan: * Treatment: * Billing Information: * Visit Code: * Procedure Codes: * Electronic signature of GWEN Noel on 03/06/2025 at 02:58 PM EDT Sign off status: Pending * Provider: Jessa Reeder APRN, FNP-C Date: 0 12/19/2024 Generated for Printing/Faxing/eTransmitting on:?03/06/2025 02:58 PM EDT
--- OUTSIDE RECORDS SUMMARY | 2025-03-06 15:00 | XMS_ITS | Encounter Summary ---
Author Organization [facility] Address [address] [place] [address] Care Team Providers Care Garment Tag Stringer Name Role Phone Unavailable Primary Care Provider Unavailabl e Reason for Visit * ReasonCommentsGynecologic Exam Encounter Details DateTypeDepartmentCare Team (Latest Contact Info)Hoffqjyfuvy77/21/2025 3:00 PM EDTProcedure Visit [facility] OBGYNereyda [address] [place] [phone] Melina Monge PA [address] [facility] [address] [place], [place] [phone] Well woman exam with routine gynecological exam Social History Tobacco UseTypesPacks/DayYears UsedDateSmoking Tobacco: Every Day Comments:Vape CommentsNoSex and Gender InformationValueDate RecordedSex Assigned at VitfrTfysnv11/27/2024 8:57 AM ESTLegal WchZuuopp44/15/2023 6:39 PM EDTGender SpcrbwueUvqyeh70/27/2024 8:57 AM ESTSexual OrientationNot on filedocumented as of this encounter Last Filed Vital Signs Vital SignReadingTime TakenCommentsBlood Qshqvade980/7210 3:29 PM EDT Pulse--Temperature--Respiratory Rate--Oxygen Saturation--Inhaled Oxygen Concentration--Fceqnb78.6 kg (182 lb)03/06/2025 3:29 PM EDTHeight--Body Mass Index30.2908 11:30 AM EDTdocumented in this encounter Progress Notes * ANIA Garcia - 03/06/2025 3:00 PM EDT Reason for Appointment: Patient ID: Anita Ochoa is a 34 y.o. female who presents for Gynecologic Exam Patient presents today for Annual Exam. MEDICATIONS Current Outpatient Medications Medication Instructions acetaminophen (TYLENOL) 500 mg, Oral, Every 6 hours PRN cholecalciferol (Vitamin D-3) 50 MCG (2000 UT) tablet Oral, Daily RT DSS 100 mg, Oral, 2 times daily PRN omega-3 acid ethyl esters (LOVAZA) 2 g, Oral, 2 times daily valACYclovir (VALTREX) 500 mg, Oral, Every morning ALLERGIES Allergies Allergen Reactions Celexa [Citalopram] Hives [...] SYSTEMS Review of Systems: Review of Systems Constitutional: Negative. HENT: Negative. Eyes: Negative. Respiratory: Negative. Cardiovascular: Negative. Gastrointestinal: Negative. Genitourinary: Negative. Musculoskeletal: Negative. Skin: Negative. Neurological: Negative. All other systems reviewed and are negative. Hematological: Negative. Endocrine: Negative. Allergic/Immunologic: Negative. OBJECTIVE Objective: Physical Exam Constitutional: Appearance: Normal appearance. Genitourinary: Right Adnexa: not tender and no mass present. Left Adnexa: not tender and no mass present. No cervical discharge. Breasts: Breasts are soft. Right: Normal. Left: Normal. HENT: Head: Normocephalic. Nose: Nose normal. Mouth/Throat: Mouth: Mucous membranes are moist. Cardiovascular: Rate and Rhythm: Normal rate. Pulmonary: Effort: Pulmonary effort is normal. Abdominal: General: Bowel sounds are normal. Palpations: Abdomen is soft. Musculoskeletal: General: Normal range of motion. Cervical back: Normal range of motion. Neurological: General: No focal deficit present. Mental Status: She is alert. Skin: General: Skin is warm and dry. Psychiatric: Mood and Affect: Mood normal. Vitals and nursing note reviewed. Exam conducted with a hydroelectric plant electrical engineer present. Vitals: Estimated body mass index is 30.29 kg/m?? as calculated from the following: Height as of 01/13/24: 5' 5 . Weight as of this encounter: 182 lb. BP: 118/72 No LMP recorded. (Menstrual status: IUD). Assessment/Plan ICD-10-CM 1. Well woman exam with routine gynecological exam Z01.419 Pap Smear HPV DNA probe, amplified Annual Exam: Patient presents today for an annual exam. Patient states she is doing well and has no complaints. Pap was obtained without difficulty. Orders Placed This Encounter Procedures HPV DNA probe, amplified Follow Up: Patient is to return in one year for annual unless needed otherwise. Documented by Zeinab Elder MA on behalf of: ANIA Gacria documented in this encounter Plan of Treatment DateTypeDepartmentCare Team (Latest Contact Info)Uezsgbkymfw44/02/2026 3:00 PM ESTProcedure Visit [facility] [address] [facility] [place] [phone] Melina Monge PA [address] [facility] [address] NameTypePriorityAssociated DiagnosesOrder SchedulePap SmearPathology and CytologyRoutine Well woman exam with routine gynecological exam Ordered: 03/06/2025HPV DNA probe, amplifiedMicrobiologyRoutine Well woman exam with routine gynecological exam Ordered: 03/06/2025documented as of this encounter Visit Diagnoses Diagnosis Well woman exam with routine gynecological exam Routine gynecological examination documented in this encounter
--- OUTSIDE RECORDS SUMMARY | 2025-03-06 18:17 | XMS_ITS | CCD ---
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 Name Role Phone CHIQUITA ARTIS Unavailable Un available RENETTA ALTMAN Referring Unavailable REQUEST, NONE LISTED Primary Care Unavailable ABNER MAHAN Admitting Unavailable KALLI, ABNER Attending Unavailable KALLI, ABNER Consulting Unavailable REQUEST, NONE LISTED Primary Care Unavailable STRUS, MARYANN Admitting Unavailable STRUS, MARYANN Attending Unavailable VIVIANE ROSE V Consulting Unavailable STRUS, MARYANN Consulting Unavailable Cristal Mandel Unavailable Unavailable Primary Care Provider UnavailELDON Lal Referring Unavailable JIM, ELDON Germain Primary Care Unavailable ELDON ULRICH Referring Unavailable ELDON ULRICH Primary Care Unavailable DAVID NOVAK Attending Unavailable KLARISSA RODRIGUEZ Referring Unavailable JIM, ELDON Germain Primary Care Unavailable ELDON ULRICH Referring Unavailable ELDON ULRICH Primary Care Unavailable KARAN FARMER Attending Unavailable ASYE, MELINA Attending Unavailable DARIAN, KARAN Attending Unavailable AYSE, MELINA Attending Unavailable DARIAN, KARAN Attending Unavailable DARIAN, KARAN Attending Unavailable AYSE, MELINA Attending Unavailable DRAIAN, KARAN Attending Unavailable PATEL Godfrey Attending Unavailable PATEL Godfrey Admitting Unavailable Provider, None Primary Care Unavailable Eldon Ulrich PA-C Primary Care Provider [phone] GUSTAVO GUILLORY Referring Unavailable GUSTAVO GUILLORY Primary Care Unavailable Allergies Allergy ClassificationReported Allergen(s)Allergy TypeDate of OnsetReaction(s) Facility (3 sources)Citalopram; Translations: [CITALOPRAM]Drug Jxyiqjy64-84-5603Lkn [facility] Repository (12 sources)CitalopramDrug Kyjqunz57-14-0363iohtwCarondelet Health (1 source)Citalopram; Translations: [CeleXA][facility] Medications Current Medications MedicationDrug Class(es)DatesSig (Normalized)Sig (Original)acetaminophen 500 mg oral tablet (10 sources)take 1 tablet by mouth every six hours as neededacetaminophen (Tylenol) 500 MG tablet Take 500 mg by mouth every 6 (six) hours if needed Activeamoxicillin 875 mg / clavulanate 125 mg oral tablet (1 source)Penicillin-class AntibacterialStart: 60-46-3475szwz 1 tablet by mouth every twelve hoursAmoxicillin-Pot Clavulanate 875-125 MG 1 tablet Orally every 12 hrs for 10 day(s) Oct, Activecetirizine hydrochloride 10 mg oral tablet (7 sources)Histamine-1 Receptor Antagonisttake 1 tablet by mouth in the morning cetirizine (ZyrTEC) 10 mg tablet Take 1 tablet (10 mg total) by mouth in the morning. Activetake 1 tablet by mouth once dailyZyrTEC Allergy 10 MG 1 tablet Orally Once a day Activedocusate sodium 100 mg oral capsule (13 sources)Start: 12-30-2022 End: 93-56-3830gtkv 1 capsule by mouth twice daily for constipationdocusate sodium (COLACE) 100 mg capsule Indications: Constipation during in first trimester take 1 capsule by mouth twice a day if needed for constipation 60 capsule 1 06/18/2023 Activelactobacillus acidophilus [id number] unt / pectin 100 mg oral tablet (6 sources)acidophilus-pectin, citrus 25 million cell -100 mg tablet Take by mouth 3 (three) times a day with meals. Activelevonorgestrel 0.752814 mg/hr intrauterine system (4 sources)Progestin, Progestin-containing Intrauterine DeviceStart: 10-21-2023 End: 75-65-2181Pzesmxpdripbax intrauterine device 52 mgmultivit 57-sxtn-mqffuo 1-dha (WESCAP-PN DHA) 27 mg iron-1 mg -300 mg capsule (2 sources)Start: 33-03-9316wksp 1 capsule by mouth in the morningmultivit 56-qyjq-rgewbt 1-dha (WESCAP-PN DHA) 27 mg iron-1 mg -300 mg capsule take 1 capsule by mouth in the morning 90 capsule 3 11/24/2023 Activeomega-3 acid ethyl esters (correction) 1000 mg oral capsule (10 sources)take 1 capsule by mouth in the morningomega-3 acid ethyl esters (Lovaza) 1 g capsule Take 2 g by mouth in the morning and 2 g in the evening. ActivePrenat w/o A-PS-Ebomlov-FA-DHA (WesCap-PN DHA) 27-0.6-0.4-300 MG capsule (6 sources)Start: 12-23-2023 End: 91-86-1214coiy 1 capsule by mouth once dailyPrenat w/o X-ZW-Xnoqvzl-FA-DHA (WesCap-PN DHA) 27-0.6-0.4-300 MG capsule Indications: 6 weeks follow-up Take 1 capsule by mouth Daily 30 capsule 3 12/23/2023 01/22/2024 Activetake 1 capsule by mouth in the morningPrenat w/o R-AJ-Nztcpiq-FA-DHA (WesCap-PN DHA) 27-0.6-0.4-300 MG capsule Take 1 capsule by mouth inthe morning. 0 ActivevalACYclovir 500 mg oral tablet (10 sources)Herpesvirus Nucleoside Analog DNA Polymerase Inhibitor, Herpes Simplex Virus Nucleoside Analog DNA Polymerase Inhibitor, Herpes Zoster Virus Nucleoside Analog DNA Polymerase InhibitorStart: 12-30-2022 End: 90-00-8689qeaz 1 tablet by mouth in the morningvalACYclovir (Valtrex) 500 MG tablet Indications: HSV infection Take 1 tablet (500 mg) by mouth in the morning. 30 tablet 12/23/2023 01/22/2024 Active Completed/Discontinued Medications MedicationDrug Class(es)DatesSig (Normalized)Sig (Original)acyclovir 400 mg oral tablet (1 source)Herpesvirus Nucleoside Analog DNA Polymerase Inhibitor, Herpes Simplex Virus Nucleoside Analog DNA Polymerase Inhibitor, Herpes Zoster Virus Nucleoside Analog DNA Polymerase InhibitorAcyclovir 400 MG Oral for 30 Days Not-Takingbuprenorphine 8 mg / naloxone 2 mg sublingual film (1 source)Partial Opioid Agonist, Opioid AntagonistBuprenorphine HCl-Naloxone HCl 8-2 MG DISSOLVE 1 FILM UNDER THE TONGUE ONCE DAILY Sublingual for 12Days Not-TakingbusPIRone hydrochloride 10 mg oral tablet (1 source)take 1 tablet by mouth once daily in the morning, then take 1 tablet by mouth once daily in the eveningbusPIRone HCl 10 MG take 1 tablet by mouth every morning and then take 1 tablet every evening Oral for 30 Days Not-Taking cholecalciferol 0.01 mg/ml oral solution (13 sources)Vitamin DStart: 08-09-2023 End: 33-22-2318K-Vi-Lynnette 10 MCG/ML liquid 08/09/2023 01/13/2024 Discontinued cholecalciferol (Vitamin D-3) 50 MCG (1999) tablet Take by mouth Daily Active cloNIDine hydrochloride 0.2 mg oral tablet (1 source)Central alpha-2 Adrenergic Agonisttake 1 tablet by mouth three times dailycloNIDine HCl 0.2 MG take 1 tablet by mouth three times a day Oral for 10 Days Not-TakinghydrOXYzine hydrochloride 50 mg oral tablet (1 source)Antihistaminetake 1 tablet by mouth twice daily for anxietyhydrOXYzine HCl 50 MG take 1 tablet by mouth twice a day if needed for anxiety Oral for 30 Days Not-Takingnaltrexone hydrochloride 50 mg oral tablet (1 source)Opioid Antagonisttake 1 tablet by mouth once dailyNaltrexone HCl 50 MG take 1 tablet by mouth once daily Oral for 30 Days Not-Takingprazosin 1 mg oral capsule (1 source)alpha-Adrenergic Blockertake 1 capsule by mouth at bedtimePrazosin HCl 1 MG take 1 capsule by mouth at bedtime Oral for 30 Days Not-TakingpredniSONE 50 mg oral tablet (1 source)predniSONE 50 MG Oral for 5 Days Xns-FnsslpKXQCPU-XP DHA 27 mg iron-1 mg -300 mg capsule (3 sources)Start: 12-04-2022 End: 56-22-7748bjou 1 capsule by mouth in the morningWESCAP-PN DHA 27 mg iron-1 mg -300 mg capsule Take 1 capsule by mouth in the morning. 12/04/2022 11/24/2023 DiscontinuedStart: 94-35-2099sigq 1 capsule by mouth in the morningWESCAP-PN DHA 27 mg iron-1 mg -300 mg capsule Take 1 capsule by mouth in the morning. 0 12/04/2022 Active Problems Active Problems Problem ClassificationProblemDateDocumented DateEpisodic/ChronicAbdominal pain (4 sources)Unspecified abdominal pain; Translations: [UNSPECIFIED ABDOMINAL PAIN]Onset: 65-64-3199BgjbnjscQcsrxjqka of teeth and jaw (3 sources)Other specified disorders of teeth and supporting structures; Translations: [OTH SPEC DISORDERS TEETH SUPP STRCT]Onset: 03-24-2018E Codes: Natural/environment (1 source)Bitten by cat, initial encounterEpisodicMood disorders (8 sources)Depressive disorder; Translations: [Depression]Onset: 03-06-2019 Resolved: 759660-07-1980CfegcmyHsod wounds of extremities (1 source)Open bite of right hand, initial encounterEpisodicOther complications of (1 source)Other specified related conditions, second trimester; Translations: [OTH SPEC PREG RELATED COND 2ND TRI]Onset: 36-83-3535GcuitmsfOjgyj complications of (1 source)Supervision of other high risk pregnancies, third trimester; Translations: [Supervision of other high risk pregnancies, third trimester] Onset: 83-66-8472MzuqiygzThuly complications of (1 source)Smoking (tobacco) complicating , third trimester; Translations: [Smoking (tobacco) complicating , third trimester]Onset: 40-70-1811VjejlstqYzrbz and delivery including normal (2 sources)Third trimester ; Translations: [Encounter for supervision of normal , unspecified, third trimester]79-50-1858ScytfunyJcxfzsrm codes; unclassified (1 source)Cystic fibrosis carrier; Translations: [Cystic fibrosis carrier]Onset: 78-71-5125UohpunhzHmnupfei codes; unclassified (1 source)18 weeks gestation of ; Translations: [18 WEEKS GESTATION OF ]Onset: 95-43-1703Yrjchzdvl-related disorders (5 sources)Nicotine dependence, cigarettes, uncomplicated; Translations: [History of drug abuse]Onset: 440481-91-8864HpgfkvvZwyzuvcadtn injury; contusion (1 source)Insect bite (nonvenomous) of scalp, initial encounter; Translations: [Insect bite (nonvenomous) of scalp, initial encounter]Onset: 26-86-3130Tuolhten Unclassified (1 source)Other psychoactive substance use, unspecified, in remission; Translations: [Other psychoactive substance use, unspecified, in remission] Onset: 08-90-2153Waucx infection (4 sources)Anogenital herpesviral infection; Translations: [Anogenital herpesviral infection, unspecified]Onset: 872741-35-3877Domipqs Past or Other Problems Problem ClassificationProblemDateDocumented DateEpisodic/ChronicContraceptive and procreative management (2 sources)Intrauterine contraceptive device in situ; Translations: [Encounter for routine checking of intrauterine contraceptive device]26-68-5496Lpptipqk Diabetes mellitus without complication (4 sources)Abnormal glucose tolerance test; Translations: [Other abnormal glucose]Onset: 341764-80-2660EhpjmgkaUeulunddx of teeth and jaw (4 sources)Periapical abscess without sinus; Translations: [Dental caries, unspecified]Onset: 73-12-8138IbpufwcrMxmzzspijemvv and screening for infectious disease (1 source)Contact with and (suspected) exposure to other viral communicable diseasesOnset: 05-07-2021 Resolved: 29-26-3326LsxvtezgPibwz complications of (4 sources)H/O: previous delivery by vacuum extraction; Translations: [Supervision of with other poor reproductive or obstetric history, unspecified trimester]Onset: 042847-68-6915WbzghnsnOaocs complications of (4 sources)Rubella non-immune; Translations: [Supervision of other high risk pregnancies, unspecified trimester]Onset: 213530-29-0905WzfixqosEbjrs complications of (5 sources)Diseases of the digestive system complicating , unspecified trimester; Translations: [Other current conditions classifiable elsewhere of mother, unspecified as to episode of care or not applicable]Onset: 12-30-2022 89-36-4340QmrdpnrcYcrpn gastrointestinal disorders (2 sources)Constipation; Translations: [Constipation, unspecified]01-13-2024 EpisodicOther upper respiratory infections (2 sources)Acute upper respiratory infection, unspecified; Translations: [Acute pharyngitis, unspecified]Onset: 05-07-2021 Resolved: 00-10-4445LohqiyfxAnybgdcrehduau and other problems of amniotic cavity (6 sources)Polyhydramnios, third trimester, not applicable or unspecified; Translations: [Polyhydramnios with problem]Onset: EpisodicResidual codes; unclassified (1 source)Tobacco use; Translations: [Tobacco use]Onset: 43-13-7534Yyeysapk Residual codes; unclassified (4 sources)Carrier of cystic fibrosis gene mutation; Translations: [Cystic fibrosis carrier]Onset: 096584-99-8491XxirxjyfAabupsbx codes; unclassified (2 sources)H/O: 1 miscarriage; Translations: [Personal history of other complications of , childbirthand the puerperium]Onset: 12-17-2022 81-28-5744SfukyphuJcftwhhr codes; unclassified (4 sources)Nicotine-filled electronic cigarette user; Translations: [Tobacco use]Onset: 124805-75-7174KvaixbfcTfrpfpon codes; unclassified (2 sources)H/O: miscarriage; Translations: [Personal history of other complications of , childbirth and the puerperium]Onset: 12-17-2022 54-42-2700LnokvyktSaelaywkhjsz (4 sources)Onset: Results Test NameValueInterpretationReference RangeFacilityLYME TOTALon 79-89-4010JRTR TOTAL0.3 AINormal<0.9ProMedica Bay Park HospitalComment on above:Order Comment: Interpretation < 0.9 Negative 0.9 - 1.0 Equivocal > 1.0 Positive No serological evidence of Borrelia infection. A non-reactive result does not exclude the possibility of Borrelia infection and cannot exclude early infection wth B. burgdorferi. If Lyme borreliosis is suspected, a second sample should be collected and tested 2-4 weeks later.Performed By: #### LYMET #### [facility] ([facility]) [address] [place] [address] VIRLab - Toxicology Resultson 69-16-2909Yeg - Toxicology [id number]#1.00OTKettering Health Daytoniage Panel 10on 40-60-3283Yhfb Screen CompleteCollOhioHealth Berger HospitalComment on above:Performed By: #### [id number] #### [facility] ([facility]) [address] [place] [address]Easvzg Summaryon 60-10-5318Hxxjtn SummaryHTMLBase 64 KewczrkoKFt8oLk+PGhlYWQ+NZ7BLTHhT15ikSQxrY4rM0ZHBWvJXtmoDBEQRUnUPlAnbsOjTS0abXTt ZXJu [file] c2U (more content not included)...[facility] Summaryon 95-00-8199HY [facility] [address] [place], [place] [id number] Clinical Summary PERSON INFORMATION Name: ANITA OCHOA Age: 33 Years Sex: FEMALE : 1990 MRN: Acct#: Visit Reason: Finger laceration; LT INDEX FINGER LAC Arrival: 03/31/2024 09:14:32 Discharge: 03/31/2024 10:05:00 LOS: 000 00:51 Check In: 03/31/2024 09:14:32 Checkout: 03/31/2024 10:05:00 Address: [address] [place] [id number] PCP: Provider, None PROVIDER INFORMATION Provider Role Assigned Unassigned Prema Herrmann RN ED Nurse 03/31/2024 09:22:11 03/31/2024 09:23:40 Dante Godfrey CNP ED PA 03/31/2024 09:23:07 03/31/2024 09:29:08 Rigo Ray PA-C ED PA 03/31/2024 09:28:24 Trish Monte MA ED Nurse 03/31/2024 09:29:48 VITALS INFORMATION Vital Sign Triage Latest Temperature Tympanic Temperature Temporal Artery Pulse Rate O2 Sat 99 % 99 % Respiratory Rate Blood Pressure /64 mmHg /64 mmHg MEDICAL INFORMATION Medications Given: Medication Dose Route tetanus/diphth/pertuss (Tdap) adult/adol 0.5 mL Intramuscular Allergy Information: CeleXA PHYSICIAN DOCUMENTATION DISCHARGE INFORMATION: Discharge Disposition: Home Discharge Location: Home PATIENT EDUCATION INFORMATION Instructions: Sutures, Richard, or Adhesive Wound Closure, Uutk-tn-Fcgm Follow-Up: With: Address: When: Return to this practice , only if needed DIAGNOSIS: Laceration of left index finger Patient Understands: Yes - Patient/family/caregiver verbalizes understanding of instructions given Comment:[facility]ED Patient Summaryon 68-88-4212DY Patient Summary [facility] ? Urgent Care [address] [place], [place] [address] PATIENT DISCHARGE INSTRUCTIONS Patient Information Name: ANITA [...] the edges of the wound together. ? Reeder the glue onto your skin. You may [...] skin reaction that can lead to infection. Marion Marion are often used to close cuts from surgery (incisions). To use richard, your doctor will: ? Hold the edges of your wound close together. ? Place a staple across the wound. ? Use a tool to secure the staple to the skin. ? Repeat this with as many richard as needed. Marion are faster to use than sutures, and they cause less reaction from your skin. Richard need to be taken out using a tool that bends the richard away from your skin. Follow these instructions at home: Medicines ? Take brnq-jbr-ygsgfln and prescription medicines only as told by your doctor. ? If you were prescribed an antibiotic medicine, take it as told by your doctor. Do not stop takingit even if you start to feel better. Wound care ? Follow instructions from your doctor about how to take care of your wound and bandage. ? Wash your hands with soap and water for at least 20 seconds before and after touching your wound or bandage. If you cannot use soap and water, use hand forest ranger technician. ? Do not try to take off [...] help right away i (more content not included)...[facility]- Provideron 62-85-3764Fwsuph Care Note- ProviderPatient: ANITA OCHOA Age: 33 years Sex: FEMALE : 1990 Associated Diagnoses: Laceration of left index finger Author: Rigo Ray PA-C Basic Information Additional information: Chief Complaint from Nursing Triage Note : Chief Complaint 03/31/2024 9:31 EST Chief Complaint Medical screening [facility] . History of Present Illness OCCUPATIONAL HEALTH [...] are no other associated symptoms. Nothing makes thesymptoms better or worse. Symptoms are described as [...] (Order): 03/31/2024 9:37 EST, Lane tape Pharmacy: tetanus/diphth/pertuss (Tdap) adult/adol (Order): 0.5 mL, Intramuscular, Once. [...] symptoms, or symptoms failing to improve as expec renetta and the patient voiced their understanding. Questions answered. Follow-up here only as needed. HR at [facility] is contacted with an update via secure e-mail. Procedure PROCEDURE NOTE: The affected area is cleansed with normal saline and not anesthetized. The wound is irrigated and explored. No foreign body is identified. It is cleansed with Betasept. Surgical glue and steri stripsare used to cover the wound. No dressing. The patient tolerated the procedure well without complication. Lane taping is used for her to protect the finger for return to work. Impression and Plan Diagnosis Laceration of left index finger (SRZ95-XJ S61.211A, Discharge, Medical) Plan Condition: Stable. Disposition: Discharged: Time 03/31/2024 09:47:00, to home. Patient was given the following educational materials: Sutures, Marion, or Adhesive Wound Closure,Shka-ye-Uewo, Sutures, Marion, or Adhesive Wound Closure, Zvzk-ai-Nkvh. Follow up with: ; Return to this practice , only if needed. Counseled: Patient, Regarding diagnosis, Regarding treatment plan, Patient indicated understanding of instructions. [Electronically Signed on: 03/31/2024 10:54 EST] Rigo Ray PA-C [Verified on: 03/31/2024 10:54 EST] Rigo RayPike Community HospitalUrge Care Recordon 73-80-5368Oyddzb Care [facility] ? Urgent Care [address] [id number] PATIENT DISCHARGE INSTRUCTIONS Patient Information Name: ANITA OCHOA Age: 33 Years Date of : 1990 [facility]: [id number] Reason For Visit: Finger laceration; LT INDEX FINGER LAC Arrival Time: 03/31/2024 09:14:32 Primary Care Physician: Provider, None Attending Physician: Dante Godfrey CNP Comment: Visit Diagnosis: Diagnoses This Visit Finger laceration ([id number]) Laceration of left index finger (S61.211A) If [...] and treatment you received today in the [facility] were for an urgent problem and are not intended as complete care. It is important for you to follow up with a doctor, nurse practitioner, or physician?s department assistant for ongoing care. If your symptoms [...] so we can reach you if necessary. [facility] has provided you with a complete list of medications post discharge. Please inform your content production specialist/provider of your visit and for further instruction [...] Comments No Problems found Patient Education Sutures, Richard, or Adhesive Wound Closure Doctors [...] the edges of the wound together. ? Reeder the glue onto your skin. You may [...] one long stitch or (more content not included)...[facility] IGP,APTIMA HPV,AGE GDLNon 97-71-6850CGB [facility] ACOG TESTINGNote.[facility] Comment on above:TESTS RESULT FLAG UNITS REF RANGE LAB Clinician Provided Cytology Information Source.............Cervix;Endocervix No. of containers..01 ThinPrep Vial Age Algo ACOG Angela... 30-65 FLAG LEGEND: L-Low Normal,H-High Normal,LL-Alert Low,HH-Alert High <-Panic Low,>-Panic High,A-Abnormal,AA-Critical Abnormal Performed at: 01 =G [address] [place] [address] Lala Byrd MD, HPV APTIMANegativeNegativeNOMS HealthcareComment on above:This nucleic acid amplification test detects fourteen high- risk HPV types (16,18,31,33,35,39,45,51,52,56,58,59,66,68) without differentiation. Performed at: =[facility] [id number] Mold Sheet Cleaner: Lala Byrd MD, Phone: [phone] Performed at: - [facility] [address], [place] [id number] Mold Sheet Cleaner: Lala Byrd MD, Phone: [phone] IGP, APTIMA HPV, RFX 16/18,45Note.[facility] HealthcareComment on above:TESTS RESULT FLAG UNITS REF RANGE LAB DIAGNOSIS: 02 NEGATIVE FOR INTRAEPITHELIAL LESION OR MALIGNANCY. Specimen adequacy: 02 Satisfactory for evaluation. Endocervical and/or squamous metaplastic cells (endocervical component) are present. Performed by: Laci Bustillos, Bench Worker Apprentice (ASC) . 02 Note: Note 02 The Pap [...] High <-Panic Low,>-Panic High,A-Abnormal,AA-Critical Abnormal Performed at: [facility] [address] [place] [address] Lala Byrd MD, BRUSH-SPATULA CERVIX ENDOCERVIX [facility] HealthcareUrinalysis macro (dipstick) panel (U)on 06-30-2023 Bilirubin, UANegativeNegative - 4(70) +++ mg/dLNOMS HealthcareBlood, UANegative Negative - 50 Cosmo/mcLNOID HealthcareClarity, UAClearNOMS HealthcareColor, UA YellowNOMS HealthcareGlucose, UANegativeNegative - 2000(110) ++++ mg/dLNOID HealthcareInterpretation and review of laboratory resultsNormalLDS HOSPITAL Healthcare Ketones, UANegativeNegative - 160(16) ++++ mg/dLNOID HealthcareLeukocytes, UA NegativeNegative - 500+++ Erin/mcLNOID HealthcareNitrite, UANegativeNegative - PositiveNOMS HealthcarepH, UA5.55 - 9NOMS HealthcareProtein, UANegativeNegative - 2000(20) ++++ mg/dLNOID HealthcareSpec Grav, UA1.0201 - 1.03NO[facility] Healthcare Urobilinogen, UA1.00.2 - 12 mg/dLNOMS HealthcareNOMS HealthcareQuick Strepon 05-07-2021. pyogenes Org specific cx Ql (Throat)NegativeNort Sparkle.cs Other [facility]-cashiers hospitalPinMyPet 34-51-9578Ersl Out ReportFORWARD TO COUNSYLNoBluffton HospitalComment on above:Performed By: #### CMIS #### [facility] [address] [place] [address] Mold Sheet Cleaner: Eduin Palma 93-73-2727Lcya NameCOUNSYL KIT [facility] Surgical HospitalComment on above:Performed By: #### CMIS #### [facility] [address] [place] [address] Mold Sheet Cleaner: Rod Mott MDABO AND RH TYPEon 04-19-5143JWL and Rh group Nom (Bld)ABO Rh Typing A Rh PositiveNoSuburban Community Hospital & Brentwood HospitalComment on above: Performed By: #### ABORH #### [facility] [address] [place] [address] Jaswant KarenCBC AUTO DIFFon 09-21-0580Plgiplgpo (Bld) [#/Vol]0.0 103/ulNormal 0.0-0.1The [facility] NorthComment on above:Performed By: #### CBC #### [facility] [address] [place] [address] Jaswant KarenBasophils/100 WBC (Bld)0.3 %Normal0.2-2.0The [facility] Comment on above:Performed By: #### CBC #### [facility] [address] [place] [address] Jaswant KarenEosinophils (Bld) [#/Vol]0.2 103/ulNormal0.0-0.7The [facility] NorthComment on above:Performed By: #### CBC #### [facility] [address] [place] [address] Jaswant KarenEosinophils/100 WBC (Bld)1.8 %Normal0.9-7.0The [facility] Comment on above:Performed By: #### CBC #### [facility] [address] [place] [address] Jaswant KarenErythrocyte distribution width (RBC) [Ratio]12.2 %Vigzce39.0-15.0The [facility] NorthComment on above:Performed By: #### CBC #### [facility] [facility] [address] [place] [address] Jaswant KarenHematocrit (Bld) [Volume fraction]35.7 %Critically low36.0-48.0The [facility] NorthComment on above:Performed By: #### CBC #### [facility] [address] [place] [address] Jaswant KarenHemoglobin (Bld) [Mass/Vol]12.2 g/lDAbxcod96.0-16.0The [facility] NorthComment on above:Performed By: #### CBC #### [facility] [address] [place] [address] Jaswant KarenIG #0.05 10e3/ulCritically high0.00-0.03Wayne HospitalComment on above:Performed By: #### CBC #### [facility] [address] [place] [address] Jaswant KarenIG %0.5 %Normal0.0-0.5ThMercy Health Allen HospitalComment on above: Performed By: #### CBC #### [facility] [address] [place] [address] Jaswant KarenLymphocytes (Bld) [#/Vol]2.9 103/ulNormal1.2-3.8The [facility] NorthComment on above:Performed By: #### CBC #### [facility] [address] [place] [address] Jaswant KarenLymphocytes/100 WBC (Bld)27.6 %Mnvdzx04.5-60.0[facility] Comment on above:Performed By: #### CBC #### [facility] [address] [place] [address] Jaswant KarenMANUAL DIFF REQNONormalThe [facility] NorthComment on above: Performed By: #### CBC #### [facility] [address] [place] [address] Jaswant KarenH (RBC) [Entitic mass]30.0 wqEhjzzh14.7-34.0[facility] Comment on above:Performed By: #### CBC #### [facility] [address] [place] [address] Jaswant KarenHC (RBC) [Mass/Vol]34.2 g/bNOfaeqs99.9-35.2[facility] Comment on above:Performed By: #### CBC #### [facility] [address] [place] [address] Jaswant KarenMCV (RBC) [Entitic vol]87.7 xSHqxzmk40.0-99.0[facility] Comment on above:Performed By: #### CBC #### [facility] [address] [place] [address] Jaswant KarenMonocytes (Bld) [#/Vol]0.9 103/ulCritically high0.3-0.8The [facility] NorthComment on above:Performed By: #### CBC #### [facility] [address] [place] [address] Jaswant KarenMonocytes/100 WBC (Bld)8.2 %Normal1.7-12.0[facility] Comment on above:Performed By: #### CBC #### [facility] [address] [place] [address] Jaswant KarenNeutrophils (Bld) [#/Vol]6.5 103/ulNormal1.4-6.5The [facility] NorthComment on above:Performed By: #### CBC #### [facility] [address] [place] [address] Jaswant KarenNeutrophils/100 WBC (Bld)61.6 %Xmjrlq54.0-75.0[facility] Comment on above:Performed By: #### CBC #### [facility] [address] [place] [address] Jaswant KarenPlatelet mean volume (Bld) [Entitic vol]10.2 fLNormal9.5-13.5The [facility] NorthComment on above:Performed By: #### CBC #### [facility] [address] [place] [address] Jaswant KarenPlatelets (Bld) [#/Vol]315 103/xbGagyah471-641Gfq [facility] Comment on above:Performed By: #### CBC #### [facility] [address] [place] [address] Jaswant KarenRBC (Bld) [#/Vol]4.07 106/ulCritically low4.20-5.40The [facility] NorthComment on above:Performed By: #### CBC #### [facility] [address] [place] [address] Jaswant KarenWBC (Bld) [#/Vol]10.5 103/ulNormal4.0-11.0[facility] Comment on above:Performed By: #### CBC #### [facility] [address] [place] [address] Jaswant KarenER URINE PROFILEon 53-48-7324Reocxhjtw [Mass/Vol]NegativeNormal NEGATIVEWayne HospitalComment on above:Performed By: #### ERUR #### [facility] [address] [place] [address] Jaswant KarenBLOODNegativeNormalNEGATIVEWayne HospitalComment on above: Performed By: #### ERUR #### [facility] [address] [place] [address] Jaswant KarenClarity (U)CLEARNormalThe [place] HospitalComment on above: Performed By: #### ERUR #### [facility] [address] [place] [address] Jaswant KarenColor (U)LT. YELLOWNormalYELLOWWayne HospitalComment on above:Performed By: #### ERUR #### [facility] [address] [place] [address] Jaswant KarenERUAHDA micrscopic examination will be performed if indicated.Normal The [facility] NorthComment on above:Performed By: #### ERUR #### [facility] [address] [place] [address] Jaswant KarenGlucose [Mass/Vol]NegativeNormalNEGATIVEWayne HospitalComment on above:Performed By: #### ERUR #### [facility] [address] [place] [address] Jaswant KarenKetones Ql (U)NegativeNormalNEGATIVEAvita Health System HospitalComment on above:Performed By: #### ERUR #### [facility] [address] [place] [address] Jaswant KarenNitrite Ql (U)NegativeNormalNEGATIVEWayne HospitalComment on above:Performed By: #### ERUR #### [facility] [address] [place] [address] Jaswant KarenpH (Bld)5.7Lrzepm0-9SjoWayne HospitalComment on above:Performed By: #### ERUR #### [facility] [address] [place] [address] Jaswant KarenProtein (U) [Mass/Vol]NegativermTrinity Health SystemComment on above:Performed By: #### ERUR #### [facility] [address] [place] [address] Jaswant WolfeenSPEC GRAVITY1.871Seqfcq6.005-<=1.025Wayne HospitalComment on above:Performed By: #### ERUR #### [facility] [address] [place] [address] Jaswant KarenUR MICRO INDNOT INDICATEDAccess Hospital DaytonComment on above:Performed By: #### ERUR #### [facility] [address] [place] [address] Jaswant KarenUrobilinogen Qn (U)0.2 EU/dlAccess Hospital DaytonComment on above:Performed By: #### ERUR #### [facility] [address] [place] [address] Jaswant KarenWBC (Bld) [#/Vol]NegativeNormalNEGATIVEWayne HospitalComment on above:Performed By: #### ERUR #### [facility] [address] [place] [address] Jaswant KarenPREG QUANT HCGon 10-00-0047KSD HAZQE37704.00 mIU/mLNormalWayne HospitalCommymichigan medical center sault on above:Result Comment: VERIFIED BY DILUTIONPerformed By: #### PREGQNT #### [facility] [address] [place] [address] Jaswant KarenHCG RANGESEE BELOWAccess Hospital DaytonComment on above:Result Comment: 5-50 0-1 WEEK 40-300 1-2 WEEKS 100-1,000 2-3 WEEKS 500-6,000 3-4 WEEKS 5,000-200,000 1-2 MONTHS 10,000-100,000 2-3 MONTHS 3,000-50,000 2ND TRIMESTER 1,000-50,000 3RD TRIMESTERPerformed By: #### PREGQNT #### [facility] [address] [place] [address] Jaswant KarenPROF CHEM 8 (BAS METB)on 81-50-9951Yctct gap [Moles/Vol]13.8 mmol/L NormalThe [facility] NorthComment on above:Performed By: #### BMP #### [facility] [address] [address] Jaswant KarenCalcium [Mass/Vol]9.5 mg/dLNormal8.4-10.2The [facility] Comment on above:Performed By: #### BMP #### [facility] [address] [address] Jaswant KarenChloride [Moles/Vol]102 mmol/WKflfsu84-159Rgj [facility] Comment on above:Performed By: #### BMP #### [facility] [address] [place] [address] Jaswant KarenCO2 [Moles/Vol]23.9 mmol/UBajdzt74.0-30.0The [facility] Comment on above:Performed By: #### BMP #### [facility] [address] [place] [address] Jaswant KarenCreatinine [Mass/Vol]0.45 mg/dLCritically low0.52-1.04The [facility] NorthComment on above:Performed By: #### BMP #### [facility] [address] [place] [address] Jaswant KarenEGFR-AF TANZANIAN>60Normal>=60The [facility] NorthComment on above: Performed By: #### BMP #### [facility] [address] [place] [address] Jaswant KarenEGFR-NON AF TANZANIAN>60Normal>=60The [facility] NorthComment on above:Performed By: #### BMP #### [facility] [address] [place] [address] Jaswant KarenGlucose [Mass/Vol]78 mg/wHLctgtv36-722Gux [facility] NorthComment on above:Performed By: #### BMP #### [facility] [address] [place] [address] Jaswant KarenPotassium [Moles/Vol]3.7 mmol/LNormal3.4-5.0The [facility] Comment on above:Performed By: #### BMP #### [facility] [address] [address] Jaswant KarenSodium [Moles/Vol]136 mmol/LCritically cdu987-452Nmo [facility] NorthComment on above:Performed By: #### BMP #### [facility] [address] [address] Jaswant KarenUrea nitrogen [Mass/Vol]5.0 mg/dLCritically low7.0-17.0The [facility] NorthComment on above:Performed By: #### BMP #### [facility] [address] [address] Jaswant KarenUrea nitrogen/Creatinine [Mass ratio]11.1 mg/mgNoSuburban Community Hospital & Brentwood HospitalComment on above:Performed By: #### BMP #### [facility] [address] [place], [place] [address] Jaswant KarenUS PREG PLACENTAon [id number] PREG PLACENTAPatient: ANITA OCHOA Exam Date: 10/05/2018 : 1990 Gender:F Ordering : DR. MARYANN DALY M.D. Admission #: [id number] Family : Order #: [id number] CLICK HERE TO VIEW EXAM RADIOLOGY REPORT [...] by: Viviane Rose M.D. on 10/05/2018 at 21:25[facility] Vital Signs Date TimeVital SignValuePerforming UdgcewpgpDbgjfsse55-90-9416 11:30-0400Body rtsawn363.1 Mustapha Monge PA Work Phone: [facility] HealthcareKtgerluvar57-03-3872 11:30-0400Body mass index (BMI) [Ratio]35.01 kg/m2Melina Monge PA Work Phone: [facility] HealthcareCjlivqizkj16-89-9537 11:30-0400Body geumcj47.44 kgMelina Monge PA Work Phone: [facility] HealthcareWiqdjjbvyd90-86-0243 11:30-0400Diastolic blood ukvvgnuv66 mm[Hg]Melina Monge PA Work Phone: [facility] HealthcareRddcpofioq11-16-3367 11:30-0400Systolic blood sykrufye737 mm[Hg]Melina Monge PA Work Phone: [facility] HealthcareWccpkxrssg38-93-6062 10:23-0500Body mass index (BMI) [Ratio]39.27 kg/a2Fcqwn Darian DO Work Phone: [facility] HealthcareBvejnwfqat68-47-1515 10:23-0500Body ygunju752.78 kgCorey Darian DO Work Phone: [facility] HealthcareTtlymmojsp92-23-6371 10:23-0500Diastolic blood gqmyufst10 mm[Hg]Karan Darian DO Work Phone: [facility] HealthcarePcgjmuegzw26-18-5903 10:23-0500Systolic blood hoosgwxi700 mm[Hg]Karan Darian DO Work Phone: [facility] HealthcareKocnewmtbu97-58-0149 12:15-0400Body gznxta907.64 Maury Mandel Other [facility] Other 06-25-2023 12:15-0400Body mass index (BMI) [Ratio] 30.02 kg/e1OcdkwcCristal Mandel Other [facility] Other 06-25-2023 12:15-0400Body offpxosexjk54.3 [degF]Cristal Mandel Other [facility] Other 06-25-2023 12:15-0400Body meniel07.37 kgPamela Tequila Other [facility] Other 06-25-2023 12:15-0400Respiratory rate18 /minPamela Tequila Other [facility] Other 06-25-2023 12:15-9848NqV2% (BldA) [Mass fraction]99 % Cristal Tequila Other [facility] Other 12-22-2021 13:30-0500Body .64 cmPamela Tequila Other [facility] Other 12-22-2021 13:30-0500Body mass index (BMI) [Ratio] 29.05 kg/p1Kitydp Tequila Other [facility] Other 12-22-2021 13:30-0500Body ebbaypnyxwm77.9 [degF]Cristal Gorvermond Other [facility] Other 12-22-2021 13:30-0500Body xcfkum82.65 kgPamariuma Tequila Other [facility] Other 12-22-2021 13:30-0500Respiratory rate18 /minPamariuma Tequila Other [facility] Other 12-22-2021 13:30-0426IwM4% (BldA) [Mass fraction]99 % Cristal Tequila Other [facility] Other Encounters Encounter DateEncounter TypeCare ProviderFacilityStart: 54-83-3398pwibhgybbq [facility] HospitalStart: 03-31-2024 End: 67-72-9841tghzkminwbZR-C Bryan W. RauchFacility:[facility] HospitalStart: 01-13-2024 End: 34-56-4803Jnbmfu flowsheetMelina JORGE Work Phone: [facility] OBStart: 01-13-2024 End: 90-95-9114Wuktvl flowsheetMelina JORGE Work Phone: [facility] OBStart: 01-13-2024 End: 74-43-8370Jxywocgwl Result EncounterMelina JORGE Work Phone: [facility] External Department UnsolicitedStart: 01-13-2024 End: 22-61-2035Yijhatf encounter procedureMelina JORGE Work Phone: [facility] Work Phone: Start: 01-13-2024 End: 83-01-4732Avopyxor preventive med est patient 18-39 yrsAmy Ayse JORGE Work Phone: [facility] OBComment on above:Well woman exam with routine gynecological exam; Encounter for routine checking of intrauterine contraceptive device (IUD); Constipation, unspecified constipation typeStart: 12-22-2023 End: 63-33-1926Mlgbhmnan encounterFlor RoPremier Health [facility] Physicians Obstetrics/GynecologyStart: 11-24-2023 End: 58-70-0233McnvqqQtjzSandi GOODSON Work Phone: [facility] CyldeStart: 10-21-2023 End: 87-79-9667ohlfkrhnoiIKPDA FAZIONot AvailableStart: 09-20-2023 End: 23-82-7034yiruuviaijASM AYSENot AvailableStart: 07-29-2023 End: 17-69-2717hvfhgjwodpVKDIPX [facility] PPGStart: 07-28-2023 End: 63-07-0589sbfmkgggthHLVGB FAZIONot AvailableStart: 07-21-2023 End: 44-60-9186xzmkdxlptsXSFUH FAZIONot AvailableStart: 07-14-2023 End: 93-02-2333pgrsrhdmckEZX RAMEYNot AvailableStart: 06-30-2023 End: 80-72-1007Xjwpxdom flow sheetCorey Darian DO Work Phone: [facility] OBComment on above:Third trimester Start: 06-30-2023 End: 65-21-8483yzpzgweyckAXVTO FAZIONot AvailableStart: 06-24-2023 End: 65-72-2011rvyliliiekMURRPL [facility] Ambulatory PPGStart: 90-50-2166UjyzxeDjpfSandi Rodriguez APRN-SALES DEVELOPMENT SPECIALIST Work Phone: [facility] Services - CyldeComment on above: Constipation during in first trimesterStart: 06-14-2023 End: 15-22-0137vukbdqnbzyARB RAMEYNot AvailableStart: 05-31-2023 End: 70-54-3501mufwgrasgqAQIUZ FAZIONot AvailableStart: 05-27-2023 End: 24-04-1731Tlyheb outpatient visit 15 minutesDavid Novak MD Work Phone: [facility] [place]sburgComment on above: Polyhydramnios affecting in third trimester (Primary Dx)Start: 05-27-2023 End: 10-88-5900roqwfozolyKYALXT [facility]SMari[facility] Ambulatory PPGStart: 11-08-2022 End: 94-43-5859ysxrxthmeeTiojfe Dymond Other [facility] Other Start: 00-77-2784Dcbzew outpatient visit 15 minutes Cristal [facility] ClydeStart: 05-07-2021(URG) Urgent Care VisitPatala [facility]don[facility] ClydeStart: 05-07-2021 End: 93-39-4213bmqlpejtapIhbela Dymond Other [facility] Other Start: 10-25-2018 End: 73-33-2733Pbccqtg encounter procedureSJANEY [facility] Hospitaltart: 10-05-2018 End: 52-80-1188Uiknodk encounter procedureNONE LISTED REQUESTFacility:M8Hwiax: 04-20-2018 End: 12-25-6961Ygolimmuy department patient visitCHIQUITA MCKEONJENI [facility] Centertart: 03-24-2018 End: 84-20-8142Gkzvxic encounter procedureNONE LISTED REQUESTFacility:H1 Procedures DateProcedureProcedure DetailPerforming ClinicianStart: 86-47-7295WDS,APTIMA HPV,AGE GDLNAmy Ayse JORGE Work Phone: Start: 91-42-0444Ubwud dip stick/tablet rgnt non-auto w/o micrscpCorey Darian GRANT Work Phone: Start: 64-59-9506Twtkzzjtyph observation [Identifier] in Cervix by Cyto stainDavid Novak MD Work Phone: Start: 63-17-9602Dqzbaxdr chemistry procedureSRIXIOMY ALTMAN Plan of Treatment DateCare ActivityDetailAuthorStart: 30-81-6893BGlS,Tdap and Td Vaccines (8 - Td or Tdap)DTaP,Tdap and Td Vaccines (8 - Td or Tdap)[facility] SystemStart: 01-22-2025 End: 79-37-8939Oyvydmq encounter gselxiybc93/08/2025 11:00 AM EDT Office Visit [facility] [address] [place] [phone] Karan Farmer, DO [address] [place] [address] [facility] BCP OBStart: 28-06-9184Zaocgxmjf for malignant neoplasm of cervixPap SmearProFirelands Regional Medical [facility] SystemStart: 55-24-4177Pdkvz BMI ScreeningAdult BMI ScreeningProMedica Toledo Hospital SystemStart: 81-52-5900Lnpfhqs ScreeningTobacco ScreeningProFirelands Regional [facility] SystemStart: 69-51-9121Yyufvncxd vaccinationInfluenza VaccineProFirelands Regional [facility] SystemStart: 01-13-2024 End: 20-02-1503Jjzngeg encounter jgmwlgaeq22/29/2024 11:00 AM EDT Office Visit [facility] [address] [facility] [place] [phone] Melina Monge PA [address] [facility] [place] [address] ArrivedNOMS BCP OBComment on above:ArrivedStart: 07-14-2023 End: 01-59-5568Chogoec encounter /28/2024 8:50 AM EST Routine [facility] [address] [facility] [place] [address] Melina Monge, PA [address] [place] [address] [facility] BCP OBStart: 06-24-2023 End: 72-41-3382Dhrjwna encounter urroamfyg08/08/2024 2:15 PM EST Appointment [facility] [place] [address] [address] Gtozyupa Medicine [place]Start: 01-15-2023 COVID-19 Vaccine ( season)COVID-19 Vaccine ( season) [facility] SystemStart: 77-26-6633Kmkbieaxl vaccinationInfluenza Vaccine [facility] SystemStart: 78-57-7973Exgde BMI Follow Up PlanAdult BMI Follow Up PlanProMedica Toledo Hospital SystemStart: 10-39-2218Hnomojylqo ScreeningDepression ScreeningProFirelands [facility] SystemStart: 97-46-7448Ztjabwv CounselingTobacco CounselingProFirelands Regional Medical [facility] Campus SystemCytology Cervical or vaginal smear or scraping studyPap Smear Pathology and Cytology Routine Well woman exam with routine gynecological exam Ordered: 01/13/2024[facility] [employer] Work Phone: comment on above:Ordered: 01/13/2024Human papilloma virus DNA [Presence] in Unspecified specimen by Probe with amplificationHPV DNA probe, amplified Microbiology Routine Well woman exam with routine gynecological exam Ordered: 01/13/2024[facility] HealthcareComment on above:Ordered: 01/13/2024 Immunizations Immunization DateImmunizationNotesCare OknihnfnXrksqhll91-11-6180iwmhunm toxoid, reduced diphtheria toxoid, and acellular pertussis vaccine, adsorbedPamela Tequila Other [place] [facility] Other [id number] virus vaccine, unspecified formulationDavid Novak MD Work Phone: pAudysseyNEGATED: Highlighted row has not occurred!84-31-1349fxhggjxhu virus vaccineDavid Novak MD Work Phone: pAudysseyComment on above:Deferred: Other - immune Payers DatePayer CategoryPayerPolicy ID2023Medicaid [id number] [id number].[facility] [id number] 2.0.1.199985.3.57[id number] 2..1.029360.3.57[id number] 2..1.155162.3.57[id number] 2.16.840.1.353945.3.57[id number] 2.0.1.920078.3.57[id number] 2.840.1.696907.3.579.2.75[id number] 2.840.1.639449.3.57[id number] 2.0.1.097957.3.579.2.879809-85-4708Sttjzxw3661771 2..1.310642.3.57[id number] 2.0.1.548220.3.579.2.896415-98-4649Gzulihx9886475 2..1.506116.3.579.2.412953-27-5380Iqqoeif5675186 2..1.477365.3.579.[id number] 2..1.926578.3.579.2.707290-39-8613Dtcnktp6053657 2..1.429348.3.579.2.183652-31-8688Nxjvkyb5106443 2.840.1.025909.3.579.2.568024-53-5120Xoabtcl35779034 2..1.296893.3.57[id number] 2.840.1.638650.3.579.2.806811-25-0527Immh-dtx46908395129-06-9899Xioiysg [id number] 2.0.1.267266.19 Social History DateTypeDetailFacilityUnknown if ever smokedNomissouri delta medical center [facility] Other Start: 06-27-2020 End: 83-15-5828Qat Assigned At BirthNomiss[facility] center [facility] Other Tobacco smoking status NHISTobacco smoking consumption unknownLDS [facility]OSPITAL HealthcareStart: 68-89-8547DkxuxqhvdMhlZwdozo Health SystemStart: 40-36-5995Iwp Assigned At BirthNot on fileProMedica Toledo Hospital SystemStart: 05-26-2022 End: 87-35-4186Obiglax smoking status NHISSmokes tobacco dailyLDS HOSPITAL Healthcare Start: 06-27-2020 End: 97-71-8817Ssyqjgb of Social functionProMedica Toledo Hospital SystemStart: 41-14-7135Gtsxbgf CommentVapeNOMS HealthcareStart: 68-13-1339Hkn assigned at [facility] hospitalFeMer[facility] Medical Center HealthcareStart: 13-16-9894Hipyao identityIdentifies as female gender (finding)[facility] HealthcareHistory of tobacco useTobacco Use Types Packs/Day Years Used Date Smoking Tobacco: Every Day Vaping/E-cigarettes Smokeless Tobacco: NeverProMedica Toledo Hospital SystemStart: 37-83-1469Piorroj use and exposure Smokeless tobacco non-userProMedica Toledo Hospital SystemStart: 04-29-2023 End: 70-95-4433Kdpbbnx intakeEx-drinker (finding)[facility] SystemHousing InstabilityShoshone Medical Center SystemStart: 50-96-4078Xrtqtvw Comment occasionalDelaware County Hospital Clinical Notes 11-08-2022 to 03-31-2024 Note Date & OuymNcmiKdhlpgpe78-99-7090 NotePatient Education Materials Follows: Sutures, Richard, or Adhesive Wound Closure [...] the edges of the wound together. ? Reeder the glue onto your skin. You may [...] reaction that can lead to infection. Richard Marion are often used to close cuts from surgery (incisions). To use richard, your doctor will: ? Hold the edges of your wound close together. ? Place a staple across the wound. ? Use a tool to secure the staple to the skin. ? Repeat this with as many richard as needed. Richard are faster to use than sutures, and they cause less reaction from your skin. Richard need to be taken out using a tool that bends the richard away from your skin. Follow these instructions at home: Medicines ? Take zifq-xyf-rfjjiij and prescription medicines only as told by your doctor. ? If you were prescribed an antibiotic medicine, take it as told by your doctor. Do not stop takingit even if you start to feel better. Wound care ? Follow instructions from your doctor about how to take care of your wound and bandage. ? Wash your hands with soap and water for at least 20 seconds before and after touching your wound or bandage. If you cannot use soap and water, use hand forest ranger technician. ? Do not try to take off [...] your wound in water. (more content not included)...[facility] HospitalLbsmxldl79-84-3383 History of Present illness Narrative* ANIA Garcia - 01/13/2024 11:00 AM EDT Reason for Appointment: Patient ID: Anita [...] g, Oral, 2 times daily Prenat w/o Y-AV-Rrucphb-FA-DHA ([place] [facility] 27-0.6-0.4-300 MG capsule 1 capsule, Oral, [...] nursing note reviewed. Exam conducted with a converter skimmer present. Vitals: Estimated body mass index [...] hair loss. Patient is currently and aware thathair loss maybe due to hormones. Patient recently restarted her PNV. Orders Placed This Encounter Procedures HPV DNA probe, amplified Follow Up: Patient is to return in one year for annual unless needed otherwise. Documented by Vivien Luna LPN on behalf of: ANIA Garcia documented in this encounterCitizens Memorial [id number] Miscellaneous Notes* Telephone Encounter - Flor Ro - 12/22/2023 11:40 AM EDT Patient called requesting refills on her valtrex & vitamin. Patient pharmacy information has been updated. Please advise. Thank you. * Telephone Encounter - KELLEE Dailey - 12/22/2023 11:40 AM EDT It looks like patient transferred to Dr. Farmer back in May 2023. Please have her follow up withhim or schedule an appointment with us if she desires to transfer care back to us. Thank you. * Telephone Encounter - Cecile Rowan CMA - 12/22/2023 11:40 AM EDT Called and unable to lvm for pt * Telephone Encounter - Fide Esquivel RN - 12/22/2023 11:40 AM EDT Pt called back and informed her of this information. She states she did transfer to [facility] and will call his office. CAMERON Eugene, RN [facility] Telephone encounter Note* Telephone Encounter - Flor Ro - 12/22/2023 11:40 AM EDT Patient called requesting refills on her valtrex & vitamin. Patient pharmacy information has been updated. Please advise. Thank you. [facility]08-07-[facility] Telephone encounter Note* Telephone Encounter - KELLEE Dailey - 12/22/2023 11:40 AM EDT It looks like patient transferred to Dr. Farmer back in May 2023. Please have her follow up withhim or schedule an appointment with us if she desires to transfer care back to us. Thank you. [facility]08-07-[facility] Telephone encounter Note* Telephone Encounter - Cecile Rowan CMA - 12/22/2023 11:40 AM EDT Called and unable to lvm for pt [facility]08-07-[facility] Telephone encounter Note* Telephone Encounter - Fide Esquivel RN - 12/22/2023 11:40 AM EDT Pt called back and informed her of this information. She states she did transfer to [facility] and will call his office. CAMERON Eugene, RN [facility]02-14-2024 History of Present illness Narrative* Libia Marlin, JOANIE - 06/30/2023 10:10 AM EST Reason for Appointment: Patient ID: Anita Ochoa [...] nursing note reviewed. Exam conducted with a converter skimmer present. Vitals: Estimated body mass index is 39.27 kg/m as calculated from the following: Height as of 24: 5' 4 . Weight as of this [...] of: Karan Farmer DO documented in this encounterCitizens Memorial [id number] History of Present illness Narrative* David Novak MD - 05/27/2023 3:15 PM EST REASON FOR TELEMEDICINE VIDEO OFFICE VISIT: Polyhydramnios resolved. HISTORY OF PRESENT ILLNESS: Anita Ochoa is a pleasant 32 y.o. G 3 P1 011 at 29w0d due on Estimated Date of Delivery: 08/12/23 . 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 will be tested in the screening 2. [...] tablet (500 mg total) by mouth every 6(six) hours as needed for pain., Disp: , Rfl: acidophilus-pectin, citrus 25 million cell -100 mg tablet, Take by mouth 3 (three) times a day withmeals., Disp: , Rfl: cetirizine (ZyrTEC) 10 mg tablet, Take 1 tablet (10 mg total) by mouth in the morning., Disp: , Rfl: cholecalciferol, vitamin D3, 2,000 units tablet, Take by mouth daily., Disp: , Rfl: docusate sodium (COLACE) 100 mg capsule, Take 1 capsule (100 mg total) by mouth 2 (two) times a dayas needed for constipation., Disp: 60 capsule, Rfl: [...] 1. Ultrasounds every 4 weeks at our [place] office. 2. Term spontaneous vaginal delivery at local hospital is anticipated with C section reserve for routine obstetrical indications. 3. Patient does not have any future MD appointment scheduled with us. Thank you for allowing me to participate in [facility]. If there are any questions, please do not hesitate to call me. 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 We elected to proceed. documented in this encounterDel[facility]06-25-2023 Evaluation note* Encounter Date Diagnosis Assessment Notes Treatment Notes Treatment Clinical Notes Oct, Bitten by cat, initial encounter (ICD-10 - W55.01XA) Cat bite home care material was printed Drink plenty fluids, get plenty of rest. Take the antibiotic as prescribed until gone. Keep the wounds clean and dry. Follow-up with your family physician if no improvement in 2 to 3 days. Go to the ER for worsening symptoms or concerns Oct,Open bite of right hand, initial encounter (ICD-10 - S61.451A) [facility] Other Evaluation noteNort Sparkle.cs Other Evaluation note* Diagnosis Third trimester state, incidental [facility] Diagnosis Well woman exam with routine gynecological exam Routine gynecological examination Encounter for routine checking of intrauterine contraceptive device (IUD) Constipation, unspecified constipation type documented in [facility]* Diagnosis Polyhydramnios affecting in third trimester- Primary [facility] Diagnosis Constipation during in first trimester documented in this encounter [facility] general Narrative - ReportedNort Sparkle.cs Other History general Narrative - Reported* Type Description Date Surgical History tonsillectomy [facility] Other InstructionsNot on filedocumented in this encounter [facility] SystemInstructionsNot on filedocumented in this encounter [facility] SystemInstructionsNot on filedocumented in this encounter [facility] SystemInstructionsNot on filedocumented in this encounter [facility] Summary Purpose Family History No Family History Records FoundNo Family History Records FoundNo Family History Records FoundNo Family History Records FoundNo Family History Records FoundNo Family History Records FoundNo Family History Records Found Advance Directives No Advanced Directives Records FoundLatest Code Status on File Code StatusDate ActivatedDate InactivatedCommentsFull Code03/06/2019 7:33 PM 03/09/2019 6:30 AMDate ActivatedDate NdufgciphnxAliyxqvh36/21/2019 7:33 PM 03/09/2019 6:30 AM Additional Source Comments INFORMATION SOURCE (unrecogn ized section and content) DATE CREATED AUTHOR 04/26/2018 [facility] DATE CREATED AUTHOR AUTHOR'S ORGANIZ ATION 10/26/2018 [facility] DATE CREATED AUTHOR AUTHOR'S ORGANIZ ATION 12/25/2018 [facility] DATE CREATED AUTHOR AUTHOR'S ORGANIZ ATION 07/30/2023 [facility] DATE CREATED AUTHOR AUTHOR'S ORGANIZ ATION 10/22/2023 [facility] DATE CREATED AUTHOR AUTHOR'S ORGANIZ ATION 04/05/2024 [facility] DATE CREATED AUTHOR AUTHOR'S ORGANIZ ATION 12/24/2024 [facility] REASON FOR VISIT (unrecogniz ed section and content) ReasonCommentsRoutine VisitReasonCommentsWell Women VisitContraception String checkReasonCommentsMed Refill Care Teams (unrecognized sec tion and content) Team MemberRelationshipSpecialtyStart DateEnd Date Eldon Ulrich PA-C [address] [place] [address] PCP - GeneralPhysician Assistant01/04/21Team MemberRelationshipSpecialtyStart DateEnd Date Eldon Ulrich PA-C [address] [place] [address] PCP - GeneralPhysician Assistant01/04/21Team MemberRelationshipSpecialtyStart DateEnd Date Eldon Ulrich PA-C [address] [place] [address] PCP - GeneralPhysician Assistant01/04/21Team MemberRelationshipSpecialtyStart DateEnd Date Eldon Ulrich PA-C [address] [place] [address] PCP - GeneralPhysician Assistant01/04/21 FOR RECORDS PERTAINING TO PATIENTS WHO ARE [...] BE BASED ON THE PRIMARY CLINICAL RECORDS. [employer] [facility]. provides no warranty or guarantee of the accuracy or completeness of information in this document.
--- OUTSIDE RECORDS SUMMARY | 2025-03-06 18:18 | XMS_ITS | Encounter Summary ---
Author Organization [facility] Address [address] [place] [address] Care Team Providers Care Peoplesoft Hcm Consultant Name Role Phone Unavailable Primary Care Provider Unavailabl e Encounter Details DateTypeDepartmentCare Team (Latest Contact Info)Uoktqlhynac01/21/2025amboo flowsheet NOMEduardo RIVERO [address] [place] [address] Melina Monge PA [address] [place], [facility] Social History Tobacco UseTypesPacks/DayYears UsedDateSmoking Tobacco: Every Day Comments:Vape CommentsNoSex and Gender InformationValueDate RecordedSex Assigned at DlbzlWcittx19/27/2024 8:57 AM ESTLegal OllDxxfwf26/15/2023 6:39 PM EDTGender FhjtoacuRnerho30/27/2024 8:57 AM ESTSexual OrientationNot on filedocumented as of this encounter Plan of Treatment DateTypeDepartmentCare Team (Latest Contact Info)Fnpmluonjww37/02/2026 3:00 PM ESTProcedure Visit [facility] [address] [place] [address] Melina Monge PA [address] [place], [place] [phone] documented as of this encounter Visit Diagnoses Not on filedocumented in this encounter
--- OUTSIDE RECORDS SUMMARY | 2025-03-06 18:18 | XMS_ITS | Clinical Summary ---
Author Organization [facility] Address [id number] [address] [place] [address] Care Team Providers Care Senior Principal Name Role Phone Elo Reeder FLOORWORKER DISTRIBUTOR-POKER MANAGER Primary Care Provide r Allergies Active AllergyReactionsCriticalityNoted DateCommentsCitalopramHivesMedium 12/18/2017 Whole body hives Medications MedicationSigDispense QuantityRefillsLast FilledStart DateEnd DateStatus cetirizine (ZyrTEC) 10 mg tablet Take 1 tablet (10 mg total) by mouth in the morning.Active omega-3 acid ethyl esters (LOVAZA) 1 gram capsule Take 2 capsules (2 g total) by mouth in the morning and 2 capsules (2 g total) before bedtime.Active acidophilus-pectin, citrus 25 million cell -100 mg tablet Take by mouth 3 (three) times a day with meals.Active cholecalciferol, vitamin D3, 2,000 units tablet Take by mouth daily.Active valACYclovir (VALTREX) 500 mg tablet Indications:HSV (herpes simplex virus) anogenital infectiontake 1 tablet by mouth every morning 90 tablet 3Active acetaminophen (TYLENOL EXTRA STRENGTH) 500 mg tablet Take 1 tablet (500 mg total) by mouth every 6 (six) hours as needed for pain. Active docusate sodium (COLACE) 100 mg capsule Indications:Constipation during in first trimestertake 1 capsule by mouth twice a day if needed for constipation 60 capsule 4Active multivit 45-xdya-mimzgp 1-dha (WESCAP-PN DHA) 27 mg iron-1 mg -300 mg capsule take 1 capsule by mouth in the morning 90 capsule ctive Active Problems ProblemNoted DateDiagnosed DatePolyhydramnios affecting in third eluzekvub72/14/2023 Overview (04/30/2023): MFM recommendation: Weekly NST and DVP at 36 weeks until delivery. The bowel should be evaluated with each DVP. Cystic fibrosis can present with meconium peritonitis in the fetus Q.4 wks growth US Constipation during bmwddecra80/16/2023Rubella non-immune status, antepartum 12/21/2022bnormal GTT (glucose tolerance test)12/21/2022 Overview (12/21/2022): Failed early one hour (155). Three hour ordered. Hx of one eosrbhosojt15/03/2023Hx of delivery by vacuum extraction, currently /03/2023Vapes nicotine containing gtvqtnmop16/03/2023 Overview (12/17/2022): Currently trying to quit History of illicit drug use03/06/2019 Overview (03/06/2019): Patient reports heroin and percocet use, stopped in july of 2018 HSV (herpes simplex virus) anogenital scmjteyss42/21/2019 Overview (03/06/2019): Taking suppression Ebdxnklbgl81/21/2019 Overview (03/06/2019): Takes prozac daily Cystic fibrosis lzwvkxk5903/06/2019 Resolved Problems ProblemNoted DateDiagnosed DateResolved DateBipolar 1 yrjjswhc37/21/2019 03/08/2023 Encounters DateTypeDepartmentCare RoksCbzqvxurolj11/07/2025Travelfrom Last 3 Months Immunizations ImmunizationAdministration DatesNext DcaPfvoeiare54/22/2019(Deferred: Other - immune) Family History Medical HistoryRelationNameCommentsHeart attackFatherHeart attackMaternal GrandfatherBrain cancerMaternal GrandmotherLung cancerMaternal Grandmother Testicular cancerPaternal GrandfatherRelationNameStatusCommentsFatherMaternal GrandfatherMaternal GrandmotherPaternal GrandfatherAlive Social History Tobacco UseTypesPacks/DayYears UsedDateSmoking Tobacco: Every Day Vaping/E-cigarettesSmokeless Tobacco: NeverAlcohol UseStandard Drinks/Week CommentsNot Currently0 (1 standard drink = 0.6 oz pure alcohol)occasional ChildcareAnswerDate QhhovcajEnabfxiycGvtbmcu61/12/2019EmploymentAnswerDate YwczxfgnIlrsucjjpsRyitacv51/12/2019Hunger ScreeningAnswerDate RecordedWithin the past 12 months we worried whether our food would run out before we got money to buy more.Never True04/29/2023Within the past 12 months the food we bought just didn't last and we didn't have money to get more.Never True04/29/2023urpose - LifeAnswerDate RecordedPurpose and direction in ohmcZhgqawm01/11/2021 CommentsNoSex and Gender InformationValueDate RecordedSex Assigned at BirthNot on fileLegal TnyBcjnfb75/06/2015 11:47 AM EDTGender IdentityNot on fileSexual OrientationNot on file Last Filed Vital Signs Vital SignReadingTime TakenCommentsBlood Ashyrqgu495/6404/29/2023 2:53 PM EST Tjgjc734101/27/2023 12:56 PM LGQZrtujgjrnhw27.5 ??C (97.7 ??F)05/29/2022 12:10 AM ESTRespiratory Vznu9657 11:31 AM EDTOxygen Gmbiuirqqo332%05/29/2022 12:10 AM ESTInhaled Oxygen Concentration--Umumzu65 kg (216 lb)04/29/2023 2:53 PM OQYVcifwe680.6 cm (5' 5.98 )04/29/2023 2:53 PM ESTBody Mass Index34.8804/29/2023 2:53 PM EST Plan of Treatment Health MaintenanceDue DateLast DoneCommentsDepression Ynxwvfrtt63/19/2005Adult BMI Cjafsajcw72Tobacco Tzjgskdth13ap Smear /2COVID-19 Vaccine ( season)/03/2021, 12/27/2020Influenza Cjlgxif88/, 01/04/2021, 03/14/2020, Additional history existsDTaP,Tdap and Td Vaccines (9 - Td or Tdap)03/31/2034 03/31/2024, 11/08/2022, 12/13/2018, Additional history exists Medical Devices Not on file Procedures Procedure NamePriorityDate/TimeAssociated DiagnosisCommentsLYME TOTALRoutine 12/21/2024 5:06 PM EDT Insect bite (nonvenomous) of scalp, initial encounter (CODE) PAP JZEBUCuewjke04/12/2022 10:22 AM EDT Cervical cancer screening from Last 3 Months or Most Recently Relevant to Health Maintenance Results * Lyme Total (12/21/2024 5:06 PM EDT)ComponentValueRef RangeTest MethodAnalysis TimePerformed AtPathologist SignatureLYME TOTAL0.3<0.9 AI12/22/2024 6:41 AM [facility] LABORATORYSpecimen (Source)Anatomical Location / LateralityCollection Method / VolumeCollection TimeReceived TimeBloodVenous blood / UnknownVenipuncture / Xtonlpv7712/21/2024 5:06 PM EDT12/21/2024 5:06 PM EDT Narrative [facility] - 12/22/2024 6:41 AM EDT Interpretation < 0.9 Negative 0.9 - 1.0 Equivocal > 1.0 Positive No serological evidence of Borrelia infection. A non-reactive result does not exclude the possibility of Borrelia infection and cannot exclude early infection wth B. burgdorferi. If Lyme borreliosis is suspected, a second sample should be collected and tested 2-4 weeks later. Authorizing ProviderResult TypeResult StatusAbidarai Reeder FLOORWORKER DISTRIBUTOR-CNPLAB BLOOD ORDERABLESFinal ResultPerforming OrganizationAddressCity/State/ZIP CodePhone Number [facility] [address] [place] [address], * Pap Smear (12/26/2021 10:22 AM EDT)Specimen (Source)Anatomical Location / LateralityCollection Method / VolumeCollection TimeReceived Time12/26/2021 10:22 AM EDT12/26/2021 10:23 AM EDT Narrative [facility] - 01/03/2022 5:08 AM EDT [facility] ? [address] [place] [address] ? [place] [address] ? Gynecologic Cytology Consultation ? Patient Name:DONALECIAHelen:1990 (Age: 31)Gender:FTaken:2Reported:01/03/2022hysician(s):KELLEE Suárez ([phone])Copy To: Rec. #:[id number]: #[id number] Final Cytologic Interpretation ThinPrep Pap Test (Cervical): Satisfactory for evaluation. A transformation zone component is present. NEGATIVE FOR INTRAEPITHELIAL LESION OR MALIGNANCY. ?? jja/01/03/2022 Interpretation performed at [facility], [address] [place] [id number], License number: [id number]. Electronically Signed Out By ?EDMOND Kraft(ASCP) Date of Last Menstrual Period: ? (None Given) Other Clinical Conditions: IUD Z12.4 Screening for malignant neoplasm of cervix Source of Specimen ??ThinPrep Pap Test (Cervical) ? Thin Prep Pap (LIQUID FLAVOR COMPOUNDER) Fee Code(s): ?? G0145 Authorizing ProviderResult TypeResult Lucas GOODSON PATHOLOGY/CYTOLOGY ORDERABLESFinal ResultPerforming OrganizationAddress City/State/ZIP CodePhone Number [facility] from Last 3 Months or Most Recently Relevant to Health Maintenance Insurance * Guarantor: Don, Alecia HarleyAccount TypeRelation to PatientDate of PhoneBilling AddressPersonal/RhthdaQzso99/19/1993 [facility] [address] Advance Directives * Full Code (Latest Code Status on File) Date ActivatedDate PmwpzcepbwxDhdcqhzy15/21/2019 7:33 03/09/2019 6:30 AM Care Teams Team MemberRelationshipSpecialtyStart DateEnd Date Elo Reeder, DIANE-POKER MANAGER [address] [place] [phone] PCP - GeneralFamily Medicine12/21/24
--- OUTSIDE RECORDS SUMMARY | 2025-03-06 18:18 | XMS_ITS | Clinical Summary ---
Author Organization [facility] Address [address] [place] [address] Care Team Providers Care Tool And Equipment Rental Clerk Name Role Phone Unavailable Primary Care Provider Unavailabl e Allergies Active AllergyReactionsCriticalityNoted DateCommentsCitalopramHives,RashMedium 12/18/2017 Whole body hives Medications MedicationSigDispense QuantityRefillsLast FilledStart DateEnd DateStatus acetaminophen (Tylenol) 500 MG tablet Take 500 mg by mouth every 6 (six) hours if neededActive cholecalciferol (Vitamin D-3) 50 MCG (2000 UT) tablet Take by mouth DailyActive omega-3 acid ethyl esters (Lovaza) 1 g capsule Take 2 g by mouth in the morning and 2 g in the evening.Active Docusate Sodium (DSS) 100 MG capsule Indications:Constipation, unspecified constipation typeTake 1 capsule (100 mg) by mouth 2 (two) times a day as needed (constipation) 60 capsule 4Active valACYclovir (Valtrex) 500 MG tablet Indications:HSV infectionTake 1 tablet (500 mg) by mouth in the morning. 30 tablet 5ActiveHospital, Clinic, or Other Facility Administered Medication Ordered DoseRouteFrequencyStart DateEnd DateStatus Levonorgestrel intrauterine device 52 mg Indications:Encounter for IUD tiqnddnth93 eoNPWmbthcxggt59/06/202406/09/2028 Active Encounters DateTypeDepartmentCare AieyTmbjprhugjo44/21/2025 3:00 PM EDTProcedure Visit [facility] [address] [place] [address] Melina Monge PA Well woman exam with routine gynecological exam03/06/2025amboo flowsheet [facility] [address] [place] [address] Melina Monge PA from Last 3 Months Family History Medical HistoryRelationNameCommentsAsthmaBrotherDevinBreast cancerMaternal GrandmotherRobinOvarian cancerMaternal GrandmotherRobinCancerPaternal GrandfatherTomBreast cancerPaternal GrandmotherGrandmaRelationNameStatusComments BrotherDevinMaternal GrandmotherRobinPaternal GrandfatherTomPaternal Grandmother Grandma Social History Tobacco UseTypesPacks/DayYears UsedDateSmoking Tobacco: Every Day Tobacco Cessation:Ready to Q uit: Not Asked; Counseling Given: Not Answered Comments:Vape CommentsNoSex and Gender InformationValueDate RecordedSex Assigned at JnloaUqaxns44/27/2024 8:57 AM ESTLegal YwuGxzrsn41/15/2023 6:39 PM EDTGender XpaqmzxfHkuulx93/27/2024 8:57 AM ESTSexual OrientationNot on file Last Filed Vital Signs Vital SignReadingTime TakenCommentsBlood Otfeoykn811/7210 3:29 PM EDT Pulse--Temperature--Respiratory Rate--Oxygen Saturation--Inhaled Oxygen Concentration--Ubmkak58.6 kg (182 lb)03/06/2025 3:29 PM IXKOrryqp420.1 cm (5' 5 )01/13/2024 11:30 AM EDTBody Mass Index30.29001/13/2024 11:30 AM EDT Plan of Treatment DateTypeDepartmentCare Team (Latest Contact Info)Epcwuvufsxo74/02/2026 3:00 PM ESTProcedure Visit [facility] [address] [place] [address] Melina Monge PA [address] [place], [place] [id number] Insurance
--- OUTSIDE RECORDS SUMMARY | 2025-03-06 18:19 | XMS_ITS | Clinical Summary ---
Author Organization [facility] Address [address], [address] [place] [address] Care Team Providers Care Gore Stitcher Name Role Phone Unavailable Primary Care Provider Unavailabl e Allergies Active AllergyReactionsCriticalityNoted QrfxLfytfybhJursevaepwJkvaCmg82/05/2018 Medications MedicationSigDispense QuantityRefillsLast FilledStart DateEnd DateStatus acyclovir (ZOVIRAX) 400 MG tablet as mmnlbt269Active RA SLEEP AID 25 MG tablet as wlhuzs497Active FLUoxetine (PROZAC) 10 MG capsule 2 times jhznt327Active metoclopramide (REGLAN) 5 MG tablet 3 times jmoxd107Active RA VITAMIN B-6 50 MG tablet 2 times kamvy137Active amoxicillin (AMOXIL) 500 MG capsule take 1 capsule by mouth three times a day until gksljigs719/05/2019Active buprenorphine (SUBUTEX) 8 MG SUBL SL tablet DISSOLVE 1 TABLET UNDER TONGUE MFMFR370Active DOK 100 MG capsule Active Social History Tobacco UseTypesPacks/DayYears UsedDateSmoking Tobacco: Every DayCigarettes Smokeless Tobacco: Never Tobacco Cessation:Ready to Q uit: No; Counseling Given: Yes Comments: 1/2pk/cigs/day 10/25/2018 Alcohol UseStandard Drinks/WeekCommentsNo0 (1 standard drink = 0.6 oz pure alcohol)occCommentsNoSex and Gender InformationValueDate RecordedSex Assigned at BirthNot on fileLegal HbeOnnejj98/20/2015 7:13 PM EDTGender Identity Not on fileSexual OrientationNot on file Last Filed Vital Signs Vital SignReadingTime TakenCommentsBlood Mglfxksp180/6406 1:42 PM EDT Kmyax1393 1:42 PM FGCNzygwxjuhpt06 ??C (98.6 ??F)10/25/2018 1:42 PM EDT Respiratory Dffy8312 1:42 PM EDTOxygen Dyoedhxzno601%04/20/2018 12:52 PM ESTInhaled Oxygen Concentration--Hbxzjj64.2 kg (179 lb)10/25/2018 1:42 PM EDT Vucykb810.6 cm (5' 6 )10/25/2018 1:42 PM EDTBody Mass Index28.8910/25/2018 1:42 PM EDT Plan of Treatment Not on file Insurance
[2025-03-11 22:06] LABS: Age Gdln ACOG Testing Note (.); IGP, Aptima HPV, rfx 16/18,45 Note (.)
== END 2025-03-06 18:12 | disposition home or self-care (01) ==
LOC: LAB 18:11
PROVIDERS: Visit Provider Physician Assistant
DX: Z01.419 Encounter for gynecological examination (general) (routine) without abnormal findings (principal)
CPT/HCPCS: 87624; 88175